=== PATIENT | male | born 1950 | race Caucasian/White ===

== ENCOUNTER 2017-03-24 19:11 | Inpatient (IN) ==
--- NOTE | 2017-03-24 20:04 | Emergency Department Note ---
Disposition Clinical Impression: Elevated troponin Acute exacerbation of congestive heart failure Qualifiers: Congestive heart failure type: unspecified congestive heart failure type Qualified Code(s): I50.9 - Heart failure, unspecified Dyspnea Qualifiers: Dyspnea type: orthopnea Qualified Code(s): R06.01 - Orthopnea Disposition: Admitted As Inpatient Condition: Fair Time of Disposition: 21:01 General Adult HPI - General Chief complaint: ED Recheck/Abnormal Lab/Rx Stated complaint: abnormal labs/headache Time Seen by Provider: 03/24/17 19:17 Source: EMS Nursing Notes Reviewed: Yes Vital Signs Reviewed: Yes - History of Present Illness HPI Narrative: Mr. Chery, 66-year-old male, presents from the [place] for continued evaluation and management. [facility] day [facility] of progressive dyspnea. Substantially worse while lying supine. Associated with dry cough and notable increase in swelling of bilateral lower extremities. Patient has a history of congestive heart failure. PMH: Diabetes with diabetic neuropathy, just part failure, MRSA carrier, open angle glaucoma bilaterally, diabetic retinopathy bilaterally. CAD. Hypertension. History of medical noncompliance per [facility] documentation. Pain Scale: 2 - Related Data Home Medications Medication Instructions Recorded Confirmed Amlodipine Besylate 10 mg PO DAILY 03/24/17 03/24/17 Aspirin Enteric Coated [Aspirin EC] 81 mg PO DAILY 03/24/17 03/24/17 Dorzolamide/Timolol [Cosopt] 1 drop BOTH EYES BID 03/24/17 03/24/17 Furosemide [Lasix] 60 mg PO DAILY 03/24/17 03/24/17 Insulin Glargine,Hum.rec.anlog 36 unit SQ QAM 03/24/17 03/24/17 [Lantus Solostar] Ketorolac OPTH Soln [Acular] 1 drop RIGHT EYE QID 03/24/17 03/24/17 Metoprolol [Lopressor] 25 mg PO BID 03/24/17 03/24/17 Potassium Chloride [Klor-Con 10] 10 meq PO DAILY 03/24/17 03/24/17 Allergies Allergy/AdvReac Type Severity Reaction Status Date / Time fluvastatin Allergy Difficulty Verified 03/24/17 19:24 Breathing gemfibrozil Allergy Difficulty Verified 03/24/17 19:24 Breathing lovastatin Allergy Difficulty Verified 03/24/17 19:24 Breathing Penicillins [PCN] Allergy Difficulty Verified 03/24/17 19:23 Breathing simvastatin Allergy Difficulty Verified 03/24/17 19:24 Breathing Past Medical History - Past Medical History Medical history: Reports: CHF, diabetes, kidney stones Psychiatric history: Reports: no psych history - Social History Smoking Status: Never smoker Smokeless Tobacco Status: No Alcohol use: Reports: none Drug use: Reports: none Physical Exam - General General appearance: alert, in no apparent distress Course Course Narrative: Lab work from [place] drawn to March at 16:50 Serum hematology: WBC 12.3, hemoglobin 10.7, hematocrit 32.8, platelet 321.0 Serum chemistry: Sodium 144, potassium 4.1 chloride 110, CO2 24, glucose 152, and 49, creatinine 3.33, ALP 61, AST 44, ALT 27, creatinine kinase 3172, troponin 0.071 , BNP 12603 [facility]: 40 mg Lasix IV 324 mg aspirin by mouth chew. Home medications per [place] documentation: Amlodipine 10 mg by mouth daily, aspirin 81 mg by mouth daily, furosemide 40 mg 1.5 tablets by mouth when necessary hypertension or pedal edema, insulin glargine 36 units subcutaneous every morning, metoprolol tartrate 25 mg by mouth twice a day, potassium chloride 10 mEq by mouth daily In reviewing patient's labs drawn today as well as distorted from the [facility], he has a history of chronic kidney disease were in his creatinine [facility] the [facility] 3.33 is consistent with his sister work creatinine throughout the year. Clinically, patient appears to be in an exacerbation of his congestive heart failure. He has orthopnea, increased bilateral pedal edema which is 3+ pitting. His troponin of 0.071 likely secondary to his chronic kidney disease. We will continue to monitor and trend. Patient's congestive heart failure is of undocumented type with unknown ejection fraction per both [facility] paperwork as well as no documented studies in this health system. Chest x-ray read by radiology as atelectasis versus pneumonia. Clinically, I suspect atelectasis given his orthopnea, progressive dyspnea, and other clinical signs of congestive heart failure. Patient is afebrile with a nonproductive cough. Discussed the patient with the admitting hospitalist, Dr. Araiza, who agrees to accept for continued evaluation and management of acute exacerbation of congestive heart failure Chest X-Ray 03/24/17 19:36 IMPRESSION: Focal increased density in the left retrocardiac region suggesting atelectasis or pneumonia. D/ / Adryan Wheeler / Adryan Wheeler Interpreting Provider: Adryan Wheeler Vital Signs Temperature 98.4 F 03/24/17 19:18 Pulse Rate 64 03/24/17 19:18 Respiratory Rate 18 03/24/17 19:18 Blood Pressure 190/87 03/24/17 19:18 O2 Sat by Pulse Oximetry 100 03/24/17 19:18 Temperature 98.4 F 03/24/17 19:18 Pulse Rate 65 03/24/17 22:03 Respiratory Rate 16 03/24/17 22:03 Blood Pressure 176/81 03/24/17 22:03 O2 Sat by Pulse Oximetry 96 03/24/17 22:03 Oxygen Delivery Oxygen Delivery Nasal Cannula Medical Decision Making - Medical Records Medical records reviewed: Yes I reviewed the patient's medical records. - Lab Data Result diagrams: 03/24/17 20:24 03/24/17 20:24 Lab Results 03/24/17 03/24/17 03/24/17 Range/Units 20:24 20:24 20:24 WBC 12.3 H (4.3-11.1) K/mcL RBC 3.65 L (4.19-5.50) M/mcL Hgb 10.4 L (12.9-16.9) g/dL Hct 32.1 L (37.5-50.1) % MCV 87.9 (83.0-100.0) fL MCH 28.5 (28.0-33.3) pg MCHC 32.4 (31.6-35.5) g/dL RDW 13.2 (11.5-14.5) % Plt Count 305 (140-400) K/mcL MPV 10.5 (9.4-12.4) fL Immature Gran % 0.3 (0-4) % Seg Neutrophils % 80.4 % Lymphocytes % 6.0 % Monocytes % 10.3 % Eosinophils % 2.4 % Basophils % 0.6 % Neutrophils # 9.9 H (1.6-8.9) K/mcL Lymphocytes # 0.7 (0.6-4.6) K/mcL Monocytes # 1.3 (0.0-1.3) K/mcL Eosinophils # 0.3 (0.0-0.6) K/mcL Basophils # 0.1 (0.0-0.2) K/mcL PT 13.2 H (9.4-12.1) Seconds INR 1.2 APTT 33.8 (26.0-36.0) Seconds Sodium (136-145) mEq/L Potassium (3.5-4.5) mEq/L Chloride (98-109) mEq/L Carbon Dioxide (19-29) mEq/L BUN (8-26) mg/dL Creatinine (0.72-1.25) mg/dL Est GFR ( Amer) (> 60) Est GFR (Non-Af Amer) (> 60) BUN/Creatinine Ratio (6-26) Glucose (70-99) mg/dL Calculated Osmolality (280-300) Calcium (8.6-10.8) mg/dL Troponin I (0-0.03) ng/mL B-Natriuretic Peptide 1173 H (0-100) pg/mL 03/24/17 03/24/17 Range/Units 20:24 20:24 WBC (4.3-11.1) K/mcL RBC (4.19-5.50) M/mcL Hgb (12.9-16.9) g/dL Hct (37.5-50.1) % MCV (83.0-100.0) fL MCH (28.0-33.3) pg MCHC (31.6-35.5) g/dL RDW (11.5-14.5) % Plt Count (140-400) K/mcL MPV (9.4-12.4) fL Immature Gran % (0-4) % Seg Neutrophils % % Lymphocytes % % Monocytes % % Eosinophils % % Basophils % % Neutrophils # (1.6-8.9) K/mcL Lymphocytes # (0.6-4.6) K/mcL Monocytes # (0.0-1.3) K/mcL Eosinophils # (0.0-0.6) K/mcL Basophils # (0.0-0.2) K/mcL PT (9.4-12.1) Seconds INR APTT (26.0-36.0) Seconds Sodium 143 (136-145) mEq/L Potassium 4.2 (3.5-4.5) mEq/L Chloride 110 H (98-109) mEq/L Carbon Dioxide 24 (19-29) mEq/L BUN 48 H (8-26) mg/dL Creatinine 3.28 H (0.72-1.25) mg/dL Est GFR ( Amer) 23 L (> 60) Est GFR (Non-Af Amer) 19 L (> 60) BUN/Creatinine Ratio 15 (6-26) Glucose 147 H (70-99) mg/dL Calculated Osmolality 311 H (280-300) Calcium 9.2 (8.6-10.8) mg/dL Troponin I 0.05 H* (0-0.03) ng/mL B-Natriuretic Peptide (0-100) pg/mL - EKG Data EKG #1 EKG attestation: Yes I reviewed and interpreted this EKG. EKG results narrative: EKG dated to March 2017 at 19:17 interpreted as first-degree AV block; sinus rhythm with rate of 64, prolonged VT interval of approximately 0.[address]-T changes. No previous EKG for comparison. Attestation Statement - Attestation Attestation: I, Gerard Ocampo, examined this patient and my medical decision-making was reviewed with the CONTRACT ADMINISTRATION COORDINATOR/PA/Advanced Practice Nurse/Resident Physician. I agree with the documented findings, disposition and treatment plan as described except to the extent set forth below. 66-year-old male presents emergency Department with concerns of increasing shortness of breath with exertion. Patient states he became short of breath at rest and was seen at the [place] who diagnosed him with congestive heart failure and gave him Lasix, sending him to the emergency department for further evaluation. Patient is now resting comfortably however he does have +2 pitting edema bilateral lower extremities. Patient has significantly elevated BNP. He will be admitted to the hospital for further care and evaluation. Denies changes of his medications or changes in his diet.
[2017-03-24 20:32] LABS: Basophils # 0.1 K/mcL (0.0-0.2); Basophils % 0.6 %; Eosinophils # 0.3 K/mcL (0.0-0.6); Eosinophils % 2.4 %; Hematocrit 32.1 % (37.5-50.1); Hemoglobin 10.4 g/dL (12.9-16.9); Immature Granulocytes % 0.3 % (0-4); Lymphocytes # 0.7 K/mcL (0.6-4.6); Mean Corpuscular HGB Conc 32.4 g/dL (31.6-35.5); Mean Corpuscular Hemoglobin 28.5 pg (28.0-33.3); Mean Corpuscular Volume 87.9 fL (83.0-100.0); Mean Platelet Volume 10.5 fL (9.4-12.4); Monocytes # 1.3 K/mcL (0.0-1.3); Monocytes % 10.3 %; Neutrophils # 9.9 K/mcL (1.6-8.9); Platelet Count 305 K/mcL (140-400); Red Blood Count 3.65 M/mcL (4.19-5.50); Red Cell Distribution Width 13.2 % (11.5-14.5); Segmented Neutrophils % 80.4 %
[2017-03-24 20:39] LABS: INR 1.2; Prothrombin Time 13.2 Seconds (9.4-12.1)
[2017-03-24 20:42] LABS: Activated Partial Thrombo Time 33.8 Seconds (26.0-36.0)
[2017-03-24 20:45] LABS: Potassium 4.2 mEq/L (3.5-4.5)
[2017-03-24 20:46] LABS: Calcium 9.2 mg/dL (8.6-10.8)
[2017-03-25] MEDS ORDERED: Naloxone 0.4 MG/ML INJ IVP PRN (03:21)
--- NOTE | 2017-03-25 03:21 | Internal Med History&Physical ---
<Eduardo Tomlinson - Last Filed: 03/25/17 04:36> Date of Encounter: 03/25/17 Time of Encounter: 03:19 Assessment and Plan (1) Acute exacerbation of congestive heart failure Current visit: Yes Status: Acute [facility] 2+ pitting edema on exam bilateral LE CXR shows possible atelectasis in left lower lobe - Exam demonstrated diffuse rales. No rhonchi Strict I&Os Low sodium, diabetic diet, 1500ml fluid restriction O2 NC 2L HOB elevated Out of bed with assistance Increased Lasix 40mg IV BID Supportive care for cough, pain ECHO ordered in the am Continued ASA, BB. Need to optimize medical therapy pending kidney function and BP control Qualifiers: Congestive heart failure type: unspecified congestive heart failure type Qualified Code(s): I50.9 - Heart failure, unspecified (2) HTN (hypertension) Current visit: Yes Status: Chronic Elevated - BP 190/87 on arrival Restarted Amlodipine and Lopressor CrCl = 34, will consider low dose Zestril if BP continues into the day Retroperitoneal US to consider secondary cause Qualifiers: Hypertension type: unspecified Qualified Code(s): I10 - Essential (primary ) hypertension (3) CKD (chronic kidney disease) stage 4, GFR 15-29 ml/min Current visit: Yes Status: Chronic Creatinine: 09/10/2015 - 2.93 09/04/2016 - 3.36 10/05/2016 - 3.53 03/24/17 - 3.33 03/25/17 - 3.28 Chronically elevated. Ordering retroperitoneal US to rule out any obstruction Avoid nephrotoxic agents Repeat labs (4) Dyspnea Current visit: Yes Status: Acute See above Qualifiers: Dyspnea type: orthopnea Qualified Code(s): R06.01 - Orthopnea (5) Elevated troponin Current visit: Yes Status: Acute Trop 0.071 > 0.05. Trending. Likely d/t CHF and CKD. EKG reviewed and no ischemic changes noted. 1st Degree AV block. (6) T2DM (type 2 diabetes mellitus) Current visit: Yes Status: Chronic Takes Glargine 36 unites qHS at home. Checks daily in the morning and runs from 90-120. Started on Levemir 36 units qHS. Qualifiers: Diabetes mellitus complication status: with skin complications Diabetes mellitus complication detail: with other skin complication Diabetes mellitus superintendent marine oil terminal insulin use: with halfway use Qualified Code(s): E11.628 - Type 2 diabetes mellitus with other skin complications; Z79.4 - nursing home (current) use of insulin; Z79.4 - termite technician (current) use of insulin; Z79.4 - nursing home ( current) use of insulin; Z79.4 - nursing home (current) use of insulin Internal Medicine - H&P: HPI Chief complaint: shortness of breath Admitted From: Hospital to Hospital Transfer Plans for Post Hospital Care: Home History of present illness: Mr. Chery is a very pleasant 66 year old male with a past medical history of CHF , T2DM, HTN, Hyperlipidemia, and CKD who presents to the [facility] after trasnferring from the [place] [facility] with a chief complaint of shortness of breath. He reports that about 4-5 days ago he was walking from his "sleep cabin " near his son's house and started experiencing worsening shortness of breath that worsens with exertion. The SOB is associated with non-productive cough. Symptoms are relieved at rest and reports orthopnea and worsening lower extremity edema. Denies any PND, chest pain, palpitations. He is taking all his medications as directed. Patient was given 40mg Lasix, ASA and nitro at the [place] before transfer. On arrival to the [facility] ED, vitals signs show BP 190/87 and O2 on 2L 100%. Trop 0.05 today and yesterday was 0.071. BNP 1173, Cr 3.28 and WBC 12.3. On evaluation, he reports no tobacco or EtOH abuse. No pertinent family medical history. He was previously hospitalized in 2015 for similar complaints. No record of ECHO found. Mr. Chery will be admitted to for further workup and management. Past Med Surg Social Fam HX - Past Medical History Medical history: CHF, diabetes, kidney stones Psychiatric history: no psych history - Social History Smoking Status: Never smoker Smokeless Tobacco Status: No Alcohol use: none Drug use: none - Family History Mother Hx Family Cancer: Yes (throat [id number]) Internal Medicine - H&P: Meds Amlodipine Besylate 10 mg PO DAILY 03/24/17 [History] Aspirin Enteric Coated [Aspirin EC] 81 mg PO DAILY 03/24/17 [History] Dorzolamide/Timolol [Cosopt] 1 drop BOTH EYES BID 03/24/17 [History] Furosemide [Lasix] 60 mg PO DAILY 03/24/17 [History] Insulin Glargine,Hum.rec.anlog [Lantus Solostar] 36 unit SQ QAM 03/24/17 [ History] Ketorolac OPTH Soln [Acular] 1 drop RIGHT EYE QID 03/24/17 [History] Metoprolol [Lopressor] 25 mg PO BID 03/24/17 [History] Potassium Chloride [Klor-Con 10] 10 meq PO DAILY 03/24/17 [History] 3 Allergy/AdvReac Type Severity Reaction Status Date / Time fluvastatin Allergy Difficulty Verified 03/24/17 19:24 Breathing gemfibrozil Allergy Difficulty Verified 03/24/17 19:24 Breathing lovastatin Allergy Difficulty Verified 03/24/17 19:24 Breathing Penicillins [PCN] Allergy Difficulty Verified 03/24/17 19:23 Breathing simvastatin Allergy Difficulty Verified 03/24/17 19:24 Breathing All Systems PM: A 10-system review of systems was performed and is negative for pertinent findings except as documented above in the HPI. - Constitutional Constitutional: fatigue - EENT Eyes: no change in vision - Cardiovascular Cardiovascular ROS IM: dyspnea on exertion, orthopnea, no chest pain, no paroxysmal nocturnal dyspnea - Respiratory Respiratory: cough - Gastrointestinal Gastrointestinal: no abdominal pain - Genitourinary Genitourinary ROS male: no dysuria - Musculoskeletal Musculoskeletal ROS IM: no muscle cramps - Integumentary Integumentary IM: no new lesions - Neurological Neurological ROS: no headache(s) - Constitutional Vitals: Temp Pulse Resp BP Pulse Ox 99.4 F 67 18 191/92 95 03/24/17 23:41 03/24/17 23:41 03/24/17 23:41 03/24/17 23:41 03/24/17 23:41 General appearance: Present: A&O X 3, no acute distress - Head Head exam: Present: atraumatic, normocephalic - Eye Eye exam: Present: EOMI, conjuntiva pink, sclera anicteric - ENT ENT exam: Present: mucous membranes moist - Neck Neck exam general surgery: Present: normal inspection, trachea midline - Respiratory Respiratory exam: Present: rales (diffuse R>L), wheezes. Absent: accessory muscle use, chest wall tenderness, rhonchi - Cardiovascular Cardiovascular exam: Present: RRR, +S1, +S2 - GI/Abdominal GI/Abdominal exam: Present: normal bowel sounds, soft. Absent: tenderness - Rectal Rectal exam: Present: deferred - Extremities Exam Extremities exam: Present: pedal edema (2+ bilateral, 5 complete right toe amputations ). Absent: calf tenderness - Neurological Exam Neurological exam: Present: oriented X3, no focal deficits - Psychiatric Psychiatric exam: Present: normal affect, normal mood - Skin Skin exam: Present: erythema (bialteral lower extremity) Internal Med - H&P Results - Labs CBC & Chem 7: 03/25/17 03:07 03/25/17 03:07 <Heladio Nunn - Last Filed: 03/25/17 06:54> Date of Encounter: 03/25/17 Internal Medicine - H&P: HPI History of present illness: Mr. Chery is a 66 year old male All Systems PM: A 10-system review of systems was performed and is negative for pertinent findings except as documented above in the HPI. - Constitutional Vitals: Temp Pulse Resp BP Pulse Ox 100.2 F H 72 18 177/68 96 03/25/17 05:54 03/25/17 05:54 03/25/17 05:54 03/25/17 05:54 03/25/17 05:54 Internal Med - H&P Results - Labs CBC & Chem 7: 03/25/17 03:07 03/25/17 03:07 Labs: Short CBC 03/25/17 Range/Units 03:07 WBC 10.9 (4.3-11.1) K/mcL Hgb 10.4 L (12.9-16.9) g/dL Hct 32.7 L (37.5-50.1) % Plt Count 307 (140-400) K/mcL BMP 03/25/17 03:07 Sodium 142 Potassium 4.5 Chloride 109 Carbon Dioxide 23 BUN 49 H Creatinine 3.45 H Glucose 227 H Calcium 9.1 Cardiac Enzymes 03/25/17 Range/Units 03:07 Troponin I 0.06 H* (0-0.03) ng/mL - Attending Attestation I conducted a face to face diagnostic evaluation of this patient and my medical decision-making was reviewed with the Resident Physician, Dr. Eduardo Tomlinson. I agree with the documented findings, disposition and treatment plan as described except to the extent set forth below: On examination patient has bilateral lower extremity pitting edema. We will treat him with IV Lasix. Obtain kidney ultrasound.
[2017-03-25] MEDS ORDERED: Acetaminophen 325 MG TABLET PO PRN (03:36)
[2017-03-25 03:59] LABS: Hematocrit 32.7 % (37.5-50.1); Hemoglobin 10.4 g/dL (12.9-16.9); Mean Corpuscular HGB Conc 31.8 g/dL (31.6-35.5); Mean Corpuscular Hemoglobin 28.4 pg (28.0-33.3); Mean Corpuscular Volume 89.3 fL (83.0-100.0); Mean Platelet Volume 10.9 fL (9.4-12.4); Platelet Count 307 K/mcL (140-400); Red Blood Count 3.66 M/mcL (4.19-5.50); Red Cell Distribution Width 13.2 % (11.5-14.5)
[2017-03-25 04:09] LABS: Calcium 9.1 mg/dL (8.6-10.8); Potassium 4.5 mEq/L (3.5-4.5)
[2017-03-25] MEDS: *HR* Heparin 5,000 UNIT/ML VIAL SQ SCH ×2 (08:10→17:22)
[2017-03-25] MEDS: Furosemide 40 MG/4 ML VIAL IVP SCH ×2 (08:10→21:17)
[2017-03-25] MEDS: Aspirin Enteric Coated 81 MG Tablet PO SCH (08:11)
[2017-03-25] MEDS: amLODIPine 5 MG TABLET PO SCH (08:11)
[2017-03-25] MEDS: Dorzolamide/Timolol OPTH 10 ML BOTTLE BOTH EYES SCH ×2 (08:52→21:17)
[2017-03-25] MEDS: levoFLOXacin 750 MG TABLET PO SCH (08:53)
[2017-03-25 13:15] LABS: Bilirubin,Urine Negative (Negative); Blood,Urine Moderate (Negative); Clarity,Urine Clear (Clear); Color,Urine Yellow (Yellow); Glucose,Urine (UA) 100 mg/dL (Normal); Ketones,Urine Negative (Negative); Leukocyte Esterase,Urine Negative (Negative); Nitrite,Urine Negative (Negative); Protein,Urine >=300 mg/dL (Neg-Trace); Specific Gravity,Urine 1.017 (1.010-1.025); Urobilinogen,Urine Normal (Normal)
[2017-03-25 13:18] LABS: Bacteria,Urine None Seen per hpf (None-Few); Squamous Epithelial Cell,Urine Many per lpf (None-Few); WBC,Urine 0-3 per hpf (0-3)
[2017-03-25 13:32] LABS: Hyaline Casts,Urine Few per lpf (None-Few)
--- NOTE | 2017-03-25 17:07 | Internal Med Progress Note ---
Date of Encounter: 03/25/17 Time of Encounter: 09:20 - Assessment and plan (1) Acute exacerbation of congestive heart failure Current Visit: Yes Status: Acute Assessment and plan: Patient reports 3-4 day history of shortness of breath. He normally does not wear oxygen at home. He reports a nonproductive cough and increase in bilateral lower extremity edema. His lungs are clear and diminished. Patient does appear to be in fluid overload. Echocardiogram was completed today, the results are not available to me at this time. BNP is elevated at 1173. Troponin is elevated 0.05 and 0.062. Chest x-ray reveals increased density in the left retrocardiac region suggesting atelectasis or pneumonia. Will continue to monitor this, he has no leukocytosis or fever. Continue IV Lasix. Continue telemetry. Continue daily weights, strict I and O, 1.5 L diet, low sodium diet. Monitor echocardiogram results. Chest X-Ray 03/24/17 19:36 IMPRESSION: Focal increased density in the left retrocardiac region suggesting atelectasis or pneumonia. D/ / Adryan Wheeler / Adryan Wheeler Interpreting Provider: Adryan Wheeler Qualifiers: Congestive heart failure type: unspecified congestive heart failure type Qualified Code(s): I50.9 - Heart failure, unspecified (2) Dyspnea Current Visit: Yes Status: Acute Assessment and plan: Patient reports 3-4 days of shortness of breath, cough, peripheral edema. Patient does not wear O2 at home normally. Plan as above. Qualifiers: Dyspnea type: orthopnea Qualified Code(s): R06.01 - Orthopnea (3) Elevated troponin Current Visit: Yes Status: Acute Assessment and plan: Patient with flat, adynamic, mildly elevated troponin, 0.5 0.62 in the setting of CK D and CHF exacerbation. Most likely related to demand ischemia. Continue to monitor. Patient does not complain of chest pain. (4) T2DM (type 2 diabetes mellitus) Current Visit: Yes Status: Chronic Assessment and plan: Patient has been hyperglycemic. We will continue to do moderate coverage sliding scale insulin, Accu-Cheks before meals at bedtime, diabetic diet. Patient did consume a large Thanksgiving dinner that appeared to have a roll, sweet potatoes, mashed potatoes. Monitor and cover as needed. Qualifiers: Diabetes mellitus complication status: with skin complications Diabetes mellitus complication detail: with other skin complication Diabetes mellitus care home insulin use: with manager terminal use Qualified Code(s): E11.628 - Type 2 diabetes mellitus with other skin complications; Z79.4 - predatory animal exterminator (current) use of insulin; Z79.4 - alf (current) use of insulin; Z79.4 - alf ( current) use of insulin; Z79.4 - predatory animal exterminator (current) use of insulin (5) HTN (hypertension) Current Visit: Yes Status: Chronic Assessment and plan: Well controlled. Continue to monitor vital signs and continue home medications. Qualifiers: Hypertension type: unspecified Qualified Code(s): I10 - Essential (primary ) hypertension (6) CKD (chronic kidney disease) stage 4, GFR 15-29 ml/min Current Visit: Yes Status: Chronic Assessment and plan: Serum creatinine 3.45 GFR is 18. Patient has no priors to compare, unaware of his baseline. Patient has proteinuria. Will consult nephrology for recommendations. Continue to avoid nephrotoxins IV fluids judiciously, if necessary. Patient is requiring IV Lasix for CHF. Retroperitoneal ultrasound has been ordered but is not complete. (7) DVT prophylaxis Current Visit: Yes Status: Acute Assessment and plan: Heparin subcutaneous daily - Time Spent With Patient less than 15 minutes - Subjective Interval history: Patient was seen and assessed at 9:20 AM. He is alert, awake, pleasant, engaging. He states that he is almost always adherent with his fluid restriction. He states that he is as compliant as he can be with his sodium restriction due to the fact he is living with family who cooks for him. I walked past his room this afternoon, it is Thanksgiving day. Patient was eating a very large plate of food that appeared to have sleep potatoes, mashed potatoes, turkey and a roll. Patient has elevated blood sugar today and is requiring insulin sliding scale. We will continue to monitor. He denies any headache, blurred vision, dizziness, she chest pain. - Constitutional Vitals: Temp Pulse Resp BP Pulse Ox 98.3 F 72 16 169/73 93 03/25/17 14:55 03/25/17 14:55 03/25/17 14:55 03/25/17 14:55 03/25/17 14:55 General appearance: Present: cooperative, A&O X 3, no acute distress, answers questions appropriately - Head Head exam: Present: atraumatic, normal inspection, normocephalic - Eye Eye exam: Present: normal appearance, conjuntiva pink, sclera anicteric - Neck Neck exam general surgery: Present: supple, trachea midline. Absent: lymphadenopathy - Respiratory Respiratory exam: Present: decreased breath sounds, CTAB. Absent: accessory muscle use, rales, respiratory distress, rhonchi, wheezes - Cardiovascular Cardiovascular exam: Present: RRR, +S1, +S2. Absent: diastolic murmur, gallop, rubs, systolic murmur - GI/Abdominal GI/Abdominal exam: Present: distended, normal bowel sounds, soft. Absent: hepatomegaly, tenderness - Extremities Exam Extremities exam: Present: normal capillary refill, pedal edema, warm, radial pulses palpable and symmetrical. Absent: calf tenderness, cyanotic, tenderness Additional comments: +2-3 nonpitting edema to bilateral lower extremities and feet. - Neurological Exam Neurological exam: Present: alert, oriented X3, no focal deficits. Absent: facial droop, speech deficit - Skin Skin exam: Present: dry, intact, normal color, warm. Absent: rash Internal Medicine: Result - Labs CBC & Chem 7: 03/25/17 03:07 03/25/17 03:07 Labs: Cardiac Enzymes 03/25/17 Range/Units 09:13 Troponin I 0.06 H* (0-0.03) ng/mL Urine 03/25/17 Range/Units 13:00 Urine Color Yellow (Yellow) Urine Clarity Clear (Clear) Urine pH 6.0 (5.0-8.0) pH Units Ur Specific [place] 1.017 (1.010-1.025) Urine Protein >=300 H (Neg-Trace) mg/dL Urine Glucose (UA) 100 H (Normal) mg/dL - ABG Interpretation ABG results: PT/INR, D-dimer PT 13.2 Seconds (9.4-12.1) H 03/24/17 20:24 Consult Discharge Plan - Plan [facility]errals: [facility] [Primary Care Provider[facility] -
[2017-03-25] MEDS ORDERED: *HR* Dextrose 50 % in Water (Syg) 50 ML SYRINGE IVP PRN (17:08)
[2017-03-25] MEDS ORDERED: Dextrose Gel 15 GM PO PRN ×2 (17:08)
[2017-03-25] MEDS ORDERED: D5% in Water 1,000 ML IVC PRN (17:08)
[2017-03-25] MEDS: Insulin LISPRO 300 UNITS/3 ML VIAL SQ SCH ×2 (17:21→21:25)
[2017-03-25 17:27] LABS: Hemoglobin A1C 9.2 %
[2017-03-25] MEDS: Insulin DETEMIR 100 UNIT/ML X5UNITS SQ SCH (21:17)
[2017-03-26] MEDS: *HR* Heparin 5,000 UNIT/ML VIAL SQ SCH ×2 (06:01→17:44)
[2017-03-26] MEDS: amLODIPine 5 MG TABLET PO SCH (07:47)
[2017-03-26] MEDS: levoFLOXacin 750 MG TABLET PO SCH (07:47)
[2017-03-26] MEDS: Aspirin Enteric Coated 81 MG Tablet PO SCH (07:47)
[2017-03-26] MEDS: Dorzolamide/Timolol OPTH 10 ML BOTTLE BOTH EYES SCH ×2 (07:48→20:44)
[2017-03-26] MEDS: Furosemide 40 MG/4 ML VIAL IVP SCH ×2 (07:48→20:44)
[2017-03-26] MEDS: Insulin LISPRO 300 UNITS/3 ML VIAL SQ SCH ×4 (09:52→20:46)
[2017-03-26 10:03] LABS: Calcium 9.1 mg/dL (8.6-10.8); Potassium 4.1 mEq/L (3.5-4.5)
--- NOTE | 2017-03-26 12:27 | Internal Med Progress Note ---
Date of Encounter: 03/26/17 Time of Encounter: 10:05 - Assessment and plan (1) Acute exacerbation of congestive heart failure Current Visit: Yes Status: Acute Assessment and plan: Patient reports 3-4 day history of shortness of breath. He normally does not wear oxygen at home. He reports a nonproductive cough and increase in bilateral lower extremity edema. His lungs are clear and diminished. Patient does appear to be in fluid overload. Echocardiogram was completed LVEF of 55-60%, mild concentric LV hypertrophy, indeterminate diastolic dysfunction, no significant valvular dysfunction. BNP is elevated at 1173. Troponin is elevated 0.05 and 0.062. Chest x-ray reveals increased density in the left retrocardiac region suggesting atelectasis or pneumonia. Will continue to monitor this, he has no leukocytosis or fever. Continue IV Lasix. Continue telemetry. Continue daily weights, strict I and O, 1.5 L diet, low sodium diet. Continue oxygen as needed to maintain sats greater than 92%. Chest X-Ray 03/24/17 19:36 IMPRESSION: Focal increased density in the left retrocardiac region suggesting atelectasis or pneumonia. D/ / Adryan Wheeler / Adryan Wheeler Interpreting Provider: Adryan Wheeler Echocardiogram 03/25/17 03:25 Impressions: LVEF 55-60%. Mild concentric left ventricular hypertrophy. Indeterminate diastolic function. Moderate pulmonary hypertension. No significant valvular dysfunction. Left Ventricular Wall Motion: Rest Echo Findings All wall segments showed normal motion. Qualifiers: Congestive heart failure type: unspecified congestive heart failure type Qualified Code(s): I50.9 - Heart failure, unspecified (2) Dyspnea Current Visit: Yes Status: Acute Assessment and plan: Patient reports 3-4 days of shortness of breath, cough, and increased peripheral edema prior to admission. Patient does not wear O2 at home normally. Patient was not wearing supplemental oxygen during assessment this morning, he said he took it off and lost it. He does not appear to be in distress. Plan as above. Qualifiers: Dyspnea type: orthopnea Qualified Code(s): R06.01 - Orthopnea (3) Elevated troponin Current Visit: Yes Status: Acute Assessment and plan: Patient with flat, adynamic, mildly elevated troponin, 0.5 0.62 in the setting of CKD and CHF exacerbation. Most likely related to demand ischemia. Continue to monitor. Patient does not complain of chest pain. (4) T2DM (type 2 diabetes mellitus) Current Visit: Yes Status: Chronic Assessment and plan: Patient has been hyperglycemic throughout visit. We will continue to do moderate coverage sliding scale insulin, Accu-Cheks before meals at bedtime, diabetic diet. Patient did consume 2 large Thanksgiving dinners yesterday. Monitor and cover as needed. 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 Continue to monitor vital signs and continue home medications. Qualifiers: Hypertension type: unspecified Qualified Code(s): I10 - Essential (primary ) hypertension (6) CKD (chronic kidney disease) stage 4, GFR 15-29 ml/min Current Visit: Yes Status: Chronic Assessment and plan: Serum creatinine 3.89 GFR is 16. Patient has no priors to compare, unaware of his baseline. Patient has proteinuria. Will consult nephrology for recommendations. Continue to avoid nephrotoxins IV fluids judiciously, if necessary. Patient is requiring IV Lasix for CHF. Retroperitoneal ultrasound has been ordered but is not complete. Nephrology consultation is pending, I appreciate her recommendations and consultation. (7) DVT prophylaxis Current Visit: Yes Status: Acute Assessment and plan: Heparin subcutaneous daily, encourage ambulation as patient can tolerate. - Time Spent With Patient less than 15 minutes - Subjective Interval history: Patient was seen and assessed at 1005 AM. He is alert, awake, pleasant, engaging. Patient admits to eating to Thanksgiving dinner plates yesterday, one from home that was not diet restricted. Patient states that today he feels tired and does not feel any better. He is agreeable to not going home today. Retroperitoneal ultrasound is still pending at this time, had entered a nephrology consult due to his renal function. Patient still reports shortness of breath, he denies cough. Peripheral edema is unchanged from previously. He denies headache, nausea, vomiting, diaphoresis, abdominal pain. - Constitutional Vitals: Temp Pulse Resp BP Pulse Ox 98.2 F 92 16 152/75 93 03/26/17 11:26 03/26/17 11:26 03/26/17 11:26 03/26/17 11:26 03/26/17 11:26 General appearance: Present: cooperative, A&O X 3, no acute distress, answers questions appropriately - Head Head exam: Present: atraumatic, normal inspection, normocephalic - Eye Eye exam: Present: normal appearance, conjuntiva pink, sclera anicteric - Neck Neck exam general surgery: Present: supple, trachea midline. Absent: lymphadenopathy, tenderness - Respiratory Respiratory exam: Present: decreased breath sounds, CTAB. Absent: accessory muscle use, chest wall tenderness, rales, respiratory distress, rhonchi, stridor , wheezes - Cardiovascular Cardiovascular exam: Present: RRR, +S1, +S2. Absent: bradycardia, diastolic murmur, gallop, rubs, systolic murmur, tachycardia - GI/Abdominal GI/Abdominal exam: Present: distended, normal bowel sounds, soft. Absent: hepatomegaly, tenderness - Extremities Exam Extremities exam: Present: pedal edema, warm, radial pulses palpable and symmetrical. Absent: calf tenderness, cyanotic, tenderness Additional comments: +3 pitting edema bilaterally to lower extremities. - Neurological Exam Neurological exam: Present: oriented X3, no focal deficits. Absent: facial droop, speech deficit - Skin Skin exam: Present: dry, intact, normal color, warm. Absent: rash Internal Medicine: Result - Labs CBC & Chem 7: 03/25/17 03:07 03/26/17 09:40 Labs: BMP 03/26/17 09:40 Sodium 141 Potassium 4.1 Chloride 108 Carbon Dioxide 24 BUN 60 H Creatinine 3.89 H Glucose 147 H Calcium 9.1 Urine 03/25/17 Range/Units 13:00 Urine Color Yellow (Yellow) Urine Clarity Clear (Clear) Urine pH 6.0 (5.0-8.0) pH Units Ur Specific Babb 1.017 (1.010-1.025) Urine Protein >=300 H (Neg-Trace) mg/dL Urine Glucose (UA) 100 H (Normal) mg/dL - ABG Interpretation ABG results: PT/INR, D-dimer PT 13.2 Seconds (9.4-12.1) H 03/24/17 20:24 Consult Discharge Plan - Plan [facility]errals: [facility] Care Provider[facility] -
[2017-03-26] MEDS: Albumin 25% 25gram/100mL 25 GM/100 ML IV.SOLN IVPB SCH (17:35)
[2017-03-26] MEDS: Insulin DETEMIR 100 UNIT/ML X5UNITS SQ SCH (20:58)
[2017-03-27] MEDS: *HR* Heparin 5,000 UNIT/ML VIAL SQ SCH ×2 (05:46→19:40)
[2017-03-27] MEDS: Albumin 25% 25gram/100mL 25 GM/100 ML IV.SOLN IVPB SCH ×2 (06:16→19:36)
[2017-03-27 06:32] LABS: Protein/Creatinine Ratio,Urine 3.29 mg/mg (0-0.20)
[2017-03-27] MEDS: Insulin LISPRO 300 UNITS/3 ML VIAL SQ SCH ×4 (09:33→21:17)
[2017-03-27] MEDS: Aspirin Enteric Coated 81 MG Tablet PO SCH (09:39)
[2017-03-27] MEDS: amLODIPine 5 MG TABLET PO SCH (09:39)
[2017-03-27] MEDS: Dorzolamide/Timolol OPTH 10 ML BOTTLE BOTH EYES SCH ×2 (09:39→21:17)
[2017-03-27] MEDS: Furosemide 40 MG/4 ML VIAL IVP SCH ×2 (09:39→21:16)
[2017-03-27] MEDS: levoFLOXacin 750 MG TABLET PO SCH (09:39)
[2017-03-27 12:52] LABS: Potassium 4.2 mEq/L (3.5-4.5)
--- NOTE | 2017-03-27 14:39 | Internal Med Progress Note ---
Date of Encounter: 03/27/17 Time of Encounter: 14:00 - Assessment and plan (1) Acute exacerbation of congestive heart failure Current Visit: Yes Status: Acute Assessment and plan: Patient reports 3-4 day history of shortness of breath. He normally does not wear oxygen at home. He reports a nonproductive cough and increase in bilateral lower extremity edema. His lungs are clear and diminished. Patient does appear to be in fluid overload. BLE edema, +2-3 pitting today, improved from yesterday. Echocardiogram was completed LVEF of 55-60%, mild concentric LV hypertrophy, indeterminate diastolic dysfunction, no significant valvular dysfunction. BNP is elevated at 1173. Troponin is elevated 0.05 and 0.062. Chest x-ray reveals increased density in the left retrocardiac region suggesting atelectasis or pneumonia. Will continue to monitor this, he has no leukocytosis or fever. Continue IV Lasix. Continue telemetry. Continue daily weights, strict I and O, 1.5 L diet, low sodium diet. Continue oxygen as needed to maintain sats greater than 92%. Chest X-Ray 03/24/17 19:36 IMPRESSION: Focal increased density in the left retrocardiac region suggesting atelectasis or pneumonia. D/ / Adryan Wheeler / Adryan Wheeler Interpreting Provider: Adryan Wheeler Echocardiogram 03/25/17 03:25 Impressions: LVEF 55-60%. Mild concentric left ventricular hypertrophy. Indeterminate diastolic function. Moderate pulmonary hypertension. No significant valvular dysfunction. Left Ventricular Wall Motion: Rest Echo Findings All wall segments showed normal motion. Qualifiers: Congestive heart failure type: unspecified congestive heart failure type Qualified Code(s): I50.9 - Heart failure, unspecified (2) Dyspnea Current Visit: Yes Status: Acute Assessment and plan: Patient reports 3-4 days of shortness of breath, cough, and increased peripheral edema prior to admission. Patient does not wear O2 at home normally. He is requiring supplemental 02 to maintain sats. Patient was not wearing supplemental oxygen during assessment this morning, he said he took it off and lost it. He does not appear to be in distress. No wheezing, ronchi, stridor. Plan as above. Qualifiers: Dyspnea type: orthopnea Qualified Code(s): R06.01 - Orthopnea (3) Elevated troponin Current Visit: Yes Status: Acute Assessment and plan: Patient with flat, adynamic, mildly elevated troponin, 0.5 0.62 in the setting of CKD and CHF exacerbation. Most likely related to demand ischemia. Continue to monitor. (4) T2DM (type 2 diabetes mellitus) Current Visit: Yes Status: Chronic Assessment and plan: Patient has been mildly hyperglycemic throughout visit. We will continue to do moderate coverage sliding scale insulin, Accu-Cheks before meals at bedtime, diabetic diet. Patient did consume 2 large Thanksgiving dinners yesterday. Monitor and cover as needed. (5) HTN (hypertension) Current Visit: Yes Status: Chronic Assessment and plan: Pt slightly hypertensive above guidelines. Will increase Norvasc. Continue to monitor vital signs and continue home medications. Hydralazine 10mg IVP q6h prn for systolic BP > 180mmhg Qualifiers: Hypertension type: unspecified Qualified Code(s): I10 - Essential (primary ) hypertension (6) CKD (chronic kidney disease) stage 4, GFR 15-29 ml/min Current Visit: Yes Status: Chronic Assessment and plan: Serum creatinine 4.19 GFR is 14. Patient has no priors to compare, unaware of his baseline. Patient has proteinuria. Continue to avoid nephrotoxins IV fluids judiciously, if necessary. Patient is requiring IV Lasix for CHF. Retroperitoneal ultrasound completed. Kidneys with normal cortical echogenicity without evidence of hydronephrosis. Appears to be a 5 mm nonobstructing renal calculi in the right kidney. Nephrology consultation is pending, I appreciate her recommendations and consultation. (7) DVT prophylaxis Current Visit: Yes Status: Acute Assessment and plan: Heparin subcutaneous daily, encourage ambulation as patient can tolerate. - Time Spent With Patient less than 15 minutes - Subjective Interval history: Patient was seen and assessed at 1400 AM. He is asleep, arouses easily. Patient states that today he feels tired and feels some better. He is agreeable to not going home today. Patient still reports shortness of breath, he denies cough or wheezing.. Peripheral edema is slightly improved, edema is now pitting to BLE. He denies headache, nausea, vomiting, diaphoresis, abdominal pain. - Constitutional Vitals: Temp Pulse Resp BP Pulse Ox 98.8 F 67 18 170/78 93 03/27/17 11:21 03/27/17 11:21 03/27/17 11:21 03/27/17 11:21 03/27/17 11:21 General appearance: Present: cooperative, A&O X 3, pleasant, no acute distress, answers questions appropriately - Head Head exam: Present: atraumatic, normal inspection, normocephalic - Eye Eye exam: Present: normal appearance, conjuntiva pink, sclera anicteric - Neck Neck exam general surgery: Present: supple, trachea midline. Absent: lymphadenopathy, tenderness - Respiratory Respiratory exam: Present: CTAB. Absent: accessory muscle use, rales, rhonchi, wheezes - Cardiovascular Cardiovascular exam: Present: RRR, +S1, +S2. Absent: diastolic murmur, gallop, rubs, systolic murmur - GI/Abdominal GI/Abdominal exam: Present: normal bowel sounds, soft, no peritoneal signs. Absent: distended, tenderness - Extremities Exam Extremities exam: Present: pedal edema, warm, radial pulses palpable and symmetrical. Absent: calf tenderness, cyanotic, normal capillary refill, normal inspection, tenderness - Neurological Exam Neurological exam: Present: alert, oriented X3, no focal deficits. Absent: facial droop, speech deficit - Skin Skin exam: Present: dry, intact, normal color, warm. Absent: rash Internal Medicine: Result - Labs CBC & Chem 7: 03/25/17 03:07 03/27/17 12:04 Labs: BMP 03/27/17 12:04 Sodium 143 Potassium 4.2 Chloride 109 Carbon Dioxide 21 BUN 63 H Creatinine 4.19 H Glucose 206 H Calcium 9.0 - ABG Interpretation ABG results: PT/INR, D-dimer PT 13.2 Seconds (9.4-12.1) H 03/24/17 20:24 Consult Discharge Plan - Plan [facility]errals: [facility] [Primary Care Provider[facility] -
--- NOTE | 2017-03-27 17:17 | Nephrology Progress Note ---
Date of Encounter: 03/27/17 Time of Encounter: 12:00 - Assessment and Plan (1) Acute exacerbation of congestive heart failure Status: Acute UOP not impressive yet with albumin addedd yesterday evening, will monitor today Strict I/O advised Fluid restriction advised Qualifiers: Congestive heart failure type: unspecified congestive heart failure type Qualified Code(s): I50.9 - Heart failure, unspecified (2) CKD (chronic kidney disease) stage 4, GFR 15-29 ml/min Status: Chronic Sr slightly worse at 4.19, GFR 14, likely diuretics, will monitor for now Urine shows 3.3g proteinuria. Suspect DM a big cause of his CKD SPEP and UPEP pending PT elevated, vitamin d level pending Subjective Interval history: pt seen and examined with no new complaints. UOP documented at 850cc in the past 24hrs Objective - Vital Signs Vital signs: Vital Signs Temp Pulse Resp BP Pulse Ox 03/27/17 15:52 98.1 F 71 16 153/75 96 03/27/17 11:21 98.8 F 67 18 170/78 93 03/27/17 09:30 93 03/27/17 07:46 98.5 F 74 15 168/70 93 03/27/17 03:20 98.2 F 72 12 169/77 93 03/26/17 22:34 98.2 F 68 16 159/72 95 03/26/17 18:54 98.1 F 72 16 150/73 92 Intake and Output 03/27/17 03/27/17 03/27/17 07:59 15:59 23:59 Intake Total 820 / 820 Balance 820 / 820 Intake: IV Fluids 100 / 100 Flexbumin 25 gm In 100 ml @ 60 100 / 100 mls/hr IVPB Q12HR [facility] Rx#: [id number] Oral 720 / 720 Other: Meal Lunch Percent of Meal Consumed 100% Weight 108.59 kg Blood Glucose* 86 114 Patient Weight 03/27/17 23:59 Weight 108.59 kg - General Appearance General appearance: Present: well-developed, well-nourished EENT: Present: ATNC, mucous membranes moist Neck: Present: no JVD, supple Respiratory: Present: clear Cardiology: Present: edema (+2-3LE bilat) Gastrointestinal: Present: no tenderness, no guarding, obese Integumentary: Present: warm and dry Neurologic: Present: no focal deficit Musculoskeletal: Present: no deformities Psychiatric: Present: mood/affect appropriate - Lab 04/01/17 07:01 04/01/17 07:01 Most recent lab results Calcium 9.0 mg/dL (8.6-10.8) 03/27/17 12:04 Urine Creatinine 77 mg/dL 03/27/17 05:40 Urine Total Protein 253 mg/dL (1-14) H 03/27/17 05:40 Consult Discharge Plan - Plan Referrals: [facility] [Provider Group] - 04/05/17 9:00 am ([phone]) [facility] - (Please call to schedule follow up as soon as possible. Please inform your PCP of new onset Afib)
[2017-03-27] MEDS: Insulin DETEMIR 100 UNIT/ML X5UNITS SQ SCH (21:17)
[2017-03-28] MEDS: Albumin 25% 25gram/100mL 25 GM/100 ML IV.SOLN IVPB SCH ×2 (05:36→17:39)
[2017-03-28] MEDS: *HR* Heparin 5,000 UNIT/ML VIAL SQ SCH ×2 (05:39→17:39)
[2017-03-28] MEDS: Insulin LISPRO 300 UNITS/3 ML VIAL SQ SCH ×4 (08:24→21:20)
[2017-03-28] MEDS: levoFLOXacin 750 MG TABLET PO SCH (08:34)
[2017-03-28] MEDS: Furosemide 40 MG/4 ML VIAL IVP SCH ×2 (08:34→21:19)
[2017-03-28] MEDS: Aspirin Enteric Coated 81 MG Tablet PO SCH (08:34)
[2017-03-28] MEDS: amLODIPine 5 MG TABLET PO SCH (08:34)
[2017-03-28] MEDS: Dorzolamide/Timolol OPTH 10 ML BOTTLE BOTH EYES SCH ×2 (08:34→21:19)
[2017-03-28 12:43] LABS: Calcium 8.9 mg/dL (8.6-10.8); Potassium 3.9 mEq/L (3.5-4.5)
--- NOTE | 2017-03-28 13:48 | Nephrology Consult Note ---
Date of Encounter: 03/28/17 Time of Encounter: 16:00 Assessment and Plan (1) Acute exacerbation of congestive heart failure Current Visit: Yes Status: Acute Will continue diuresis with lasix iv and add albumin for the next 3 days Strict I/Os advised Fluid restriction advised Qualifiers: Congestive heart failure type: unspecified congestive heart failure type Qualified Code(s): I50.9 - Heart failure, unspecified (2) CKD (chronic kidney disease) stage 4, GFR 15-29 ml/min Current Visit: Yes Status: Chronic Will check urine for proteinuria Will sned SPEP and UPEP Will check PTH and vitamin d levels Us of kidney noted and unremarkable Discussed at length poor renal fxn and the need for regular nephrology followup in the future, pt wants to followup here in [place] upon dischrage. History of Present Illness - Reason for Consult Consult date: 03/26/17 Acute Kidney Injury, Chronic Kidney Disease Requesting physician: Denise Abdul - History of Present Illness 66 y o male with PMH of DM, [facility] and was diagnosed with acute CHF. Renal consulted for worsening renal fxn. Scr noted at 3.38, GFR 19 worsening to 3.89, GFR 16 with diuresis. No other labs noted in [place] system but on admit note several Scr documented latest at 3.53 in october of this year and another in 09/2015 at 2.93. Pt is aware of renal dysfxn and may have seen a dog walker in the past but quit going. He has has appointments with [facility] nephrologys and also in [place] which he cancelled due to being busy. No recent NSAIDs use noted. Past Med Surg Social Fam HX - Past Medical History Medical history: CHF, diabetes, kidney stones Psychiatric history: no psych history - Social History Smoking Status: Never smoker Smokeless Tobacco Status: No Alcohol use: none Drug use: none - Family History Mother Hx Family Cancer: Yes (throat sinrr9u) Medications and Allergies Amlodipine Besylate 10 mg PO DAILY 03/24/17 [History] Aspirin Enteric Coated [Aspirin EC] 81 mg PO DAILY 03/24/17 [History] Dorzolamide/Timolol [Cosopt] 1 drop BOTH EYES BID 03/24/17 [History] Furosemide [Lasix] 60 mg PO DAILY 03/24/17 [History] Insulin Glargine,Hum.rec.anlog [Lantus Solostar] 36 unit SQ QAM 03/24/17 [ History] Ketorolac OPTH Soln [Acular] 1 drop RIGHT EYE QID 03/24/17 [History] Metoprolol [Lopressor] 25 mg PO BID 03/24/17 [History] Potassium Chloride [Klor-Con 10] 10 meq PO DAILY 03/24/17 [History] 3 Allergy/AdvReac Type Severity Reaction Status Date / Time fluvastatin Allergy Difficulty Verified 03/24/17 19:24 Breathing gemfibrozil Allergy Difficulty Verified 03/24/17 19:24 Breathing lovastatin Allergy Difficulty Verified 03/24/17 19:24 Breathing Penicillins [PCN] Allergy Difficulty Verified 03/24/17 19:23 Breathing simvastatin Allergy Difficulty Verified 03/24/17 19:24 Breathing Exam - Vital Signs Vital signs: Initial Vital Signs Temp Pulse Resp BP Pulse Ox 98.4 F 64 18 190/87 100 03/24/17 19:18 03/24/17 19:18 03/24/17 19:18 03/24/17 19:18 03/24/17 19:18 Vital Signs - Last 8 Hours Temp Pulse Resp BP Pulse Ox 03/28/17 11:30 97.3 F L 65 15 127/53 92 03/28/17 07:13 98.2 F 62 15 151/55 94 Intake and Output 03/27/17 03/28/17 03/28/17 23:59 07:59 15:59 Intake Total 100 / 100 340 / 340 Balance 100 / 100 340 / 340 Intake: IV Fluids 100 / 100 100 / 100 Flexbumin 25 gm In 100 ml @ 60 100 / 100 100 / 100 mls/hr IVPB Q12HR [facility] Rx#: [id number] Oral 240 / 240 Other: Meal Breakfast Percent of Meal Consumed 100% Weight 108.681 kg Blood Glucose* 222 83 135 Patient Weight 03/28/17 23:59 Weight 108.681 kg - General Appearance General appearance: well-developed, well-nourished EENT: ATNC, mucous membranes moist Neck: no JVD, supple Additional Comments: decreased BS bases bilat Cardiology: edema (LE bilat), normal S1, normal S2 Gastrointestinal: no tenderness, no guarding, obese Integumentary: warm and dry Neurologic: no focal deficit Musculoskeletal: no deformities Psychiatric: mood/affect appropriate, cooperative Results - Lab Results 03/25/17 03:07 03/28/17 11:24 Most recent lab results Calcium 8.9 mg/dL (8.6-10.8) 03/28/17 11:24 Urine Creatinine 77 mg/dL 03/27/17 05:40 Urine Total Protein 253 mg/dL (1-14) H 03/27/17 05:40 Consult Discharge Plan - Plan [facility]errals: [facility] [Primary Care Provider] -
--- NOTE | 2017-03-28 14:00 | Nephrology Progress Note ---
Date of Encounter: 03/28/17 Time of Encounter: 14:00 - Assessment and Plan (1) Acute exacerbation of congestive heart failure Status: Acute UOP not documented Strict I/O advised Fluid restriction advised Qualifiers: Congestive heart failure type: unspecified congestive heart failure type Qualified Code(s): I50.9 - Heart failure, unspecified (2) CKD (chronic kidney disease) stage 4, GFR 15-29 ml/min Status: Chronic Sr worse at 4.45, GFR 13, likely from diuretics, will decrease dose Urine shows 3.3g proteinuria. Suspect DM a big cause of his CKD SPEP and UPEP pending PT elevated, vitamin d level pending Subjective Interval history: pt seen and examined with no new complaints. UOP not documented in the past 24hrs! Objective - Vital Signs Vital signs: Vital Signs Temp Pulse Resp BP Pulse Ox 03/28/17 11:30 97.3 F L 65 15 127/53 92 03/28/17 07:13 98.2 F 62 15 151/55 94 03/27/17 23:53 98.1 F 58 17 123/64 97 03/27/17 20:45 97 03/27/17 19:24 98.0 F 76 16 146/72 97 03/27/17 15:52 98.1 F 71 16 153/75 96 Intake and Output 03/27/17 03/28/17 03/28/17 23:59 07:59 15:59 Intake Total 100 / 100 340 / 340 Balance 100 / 100 340 / 340 Intake: IV Fluids 100 / 100 100 / 100 Flexbumin 25 gm In 100 ml @ 60 100 / 100 100 / 100 mls/hr IVPB Q12HR [facility] Rx#: [id number] Oral 240 / 240 Other: Meal Breakfast Percent of Meal Consumed 100% Weight 108.681 kg Blood Glucose* 222 83 135 Patient Weight 03/28/17 23:59 Weight 108.681 kg - General Appearance General appearance: Present: well-developed, well-nourished EENT: Present: ATNC, mucous membranes moist, tonsils absent Neck: Present: no JVD, supple Respiratory: Present: clear Cardiology: Present: edema (LE bilat unchanged), normal S1, normal S2 Gastrointestinal: Present: no tenderness, no guarding, obese Integumentary: Present: warm and dry Neurologic: Present: no focal deficit Musculoskeletal: Present: no deformities Psychiatric: Present: mood/affect appropriate - Lab 04/01/17 07:01 04/01/17 07:01 Most recent lab results Calcium 8.9 mg/dL (8.6-10.8) 03/28/17 11:24 Urine Creatinine 77 mg/dL 03/27/17 05:40 Urine Total Protein 253 mg/dL (1-14) H 03/27/17 05:40 Consult Discharge Plan - Plan Referrals: [facility] [Provider Group] - 04/05/17 9:00 am ([phone]) [facility] - (Please call to schedule follow up as soon as possible. Please inform your PCP of new onset Afib)
--- NOTE | 2017-03-28 16:37 | Internal Med Progress Note ---
Date of Encounter: 03/28/17 Time of Encounter: 15:45 - Assessment and plan (1) Acute exacerbation of congestive heart failure Current Visit: Yes Status: Acute Assessment and plan: Patient reports 3-4 day history of shortness of breath. He normally does not wear oxygen at home. He reports a nonproductive cough and increase in bilateral lower extremity edema. His lungs are clear and diminished. Patient does appear to be in fluid overload. BLE edema, +2-3 pitting today, improved from yesterday. Echocardiogram was completed LVEF of 55-60%, mild concentric LV hypertrophy, indeterminate diastolic dysfunction, no significant valvular dysfunction. BNP is elevated at 1173 on admission. Troponin is elevated 0.05 and 0.062. Likely due to demand ischemia, patient denies chest pain. Chest x-ray reveals increased density in the left retrocardiac region suggesting atelectasis or pneumonia. Will continue to monitor this, he has no leukocytosis or fever. Continue IV Lasix, decreased dose due to worsening renal function. Nephrology is on board. Continue telemetry. Continue daily weights, strict I and O, 1.5 L diet, low sodium diet. Continue oxygen as needed to maintain sats greater than 92%. Chest X-Ray 03/24/17 19:36 IMPRESSION: Focal increased density in the left retrocardiac region suggesting atelectasis or pneumonia. D/ / Adryan Wheeler / Adryan Wheeler Interpreting Provider: Adryan Wheeler Echocardiogram 03/25/17 03:25 Impressions: LVEF 55-60%. Mild concentric left ventricular hypertrophy. Indeterminate diastolic function. Moderate pulmonary hypertension. No significant valvular dysfunction. Left Ventricular Wall Motion: Rest Echo Findings All wall segments showed normal motion. Qualifiers: Congestive heart failure type: unspecified congestive heart failure type Qualified Code(s): I50.9 - Heart failure, unspecified (2) Dyspnea Current Visit: Yes Status: Acute Qualifiers: Dyspnea type: orthopnea Qualified Code(s): R06.01 - Orthopnea (3) Elevated troponin Current Visit: Yes Status: Acute Assessment and plan: Patient with flat, adynamic, mildly elevated troponin, 0.5 0.62 in the setting of CKD and CHF exacerbation. Most likely related to demand ischemia. Continue to monitor. Patient denies chest pain. (4) T2DM (type 2 diabetes mellitus) Current Visit: Yes Status: Chronic Assessment and plan: Patient has been mildly hyperglycemic throughout visit. We will continue to do moderate coverage sliding scale insulin, Accu-Cheks before meals at bedtime, diabetic diet. Patient did consume 2 large Thanksgiving dinners on the holiday. He admits to being primarily noncompliant with fluid restriction, low sodium, or diabetic diet. Monitor and cover as needed. (5) HTN (hypertension) Current Visit: Yes Status: Chronic Assessment and plan: Pt slightly hypertensive above guidelines. Will increase Norvasc. Continue to monitor vital signs and continue home medications. Hydralazine 10mg IVP q6h prn for systolic BP > 180mmhg Qualifiers: Hypertension type: unspecified Qualified Code(s): I10 - Essential (primary ) hypertension (6) CKD (chronic kidney disease) stage 4, GFR 15-29 ml/min Current Visit: Yes Status: Chronic Assessment and plan: Serum creatinine 4.45 GFR is 13. Renal function is worsening. Patient has no priors to compare, unaware of his baseline. Patient has proteinuria. Continue to avoid nephrotoxins IV fluids judiciously, if necessary. Patient is requiring IV Lasix for CHF. Retroperitoneal ultrasound completed. Kidneys with normal cortical echogenicity without evidence of hydronephrosis. Appears to be a 5 mm nonobstructing renal calculi in the right kidney. Nephrology recommends decreasing dose of diuretic due to to worsening CK D. Labs ordered by nephrology are still pending. Urine with proteinuria, suspected diabetes major cause of CK D. (7) Obesity (BMI 30-39.9) Current Visit: Yes Status: Chronic Assessment and plan: Chronic. Lifestyle changes. (8) DVT prophylaxis Current Visit: Yes Status: Acute Assessment and plan: Heparin subcutaneous daily, encourage ambulation as patient can tolerate. - Subjective Interval history: Patient was seen and assessed at 1545 AM. He alert, awake, oriented. Patient states that today he feels some better. Patient is able to lie supine in the bed without apparent distress. Peripheral edema is slightly improved, edema is now pitting to BLE. He denies headache, nausea, vomiting, diaphoresis, abdominal pain. Per nephrology note, it is recommended the patient stay for continued diuresis for the next 3 days. He is aware and agreeable. - Constitutional Vitals: Temp Pulse Resp BP Pulse Ox 98.2 F 70 16 126/62 93 03/28/17 15:53 03/28/17 15:53 03/28/17 15:53 03/28/17 15:53 03/28/17 15:53 General appearance: Present: cooperative, A&O X 3, morbidly obese, pleasant, no acute distress, answers questions appropriately Internal Medicine: Result - Labs CBC & Chem 7: 03/25/17 03:07 03/28/17 11:24 Labs: BMP 03/28/17 11:24 Sodium 143 Potassium 3.9 Chloride 108 Carbon Dioxide 24 BUN 67 H Creatinine 4.45 H Glucose 111 H Calcium 8.9 - ABG Interpretation ABG results: PT/INR, D-dimer PT 13.2 Seconds (9.4-12.1) H 03/24/17 20:24 Consult Discharge Plan - Plan [facility]errals: [facility] [Primary Care Provider] -
[2017-03-28] MEDS: Insulin DETEMIR 100 UNIT/ML X5UNITS SQ SCH (21:18)
[2017-03-28 21:55] LABS: Urine Collection Duration RANDOM hr; Urine Collection Volume RANDOM mL
[2017-03-29 00:27] LABS: Alpha 2 Globulin (PEP) 1.06 g/dL (0.48-1.05); Beta Globulin (PEP) 0.83 g/dL (0.48-1.10)
[2017-03-29 03:01] LABS: Basophils # 0.1 K/mcL (0.0-0.2); Basophils % 0.7 %; Eosinophils # 0.1 K/mcL (0.0-0.6); Eosinophils % 1.7 %; Hematocrit 25.8 % (37.5-50.1); Immature Granulocytes % 1.2 % (0-4); Lymphocytes # 0.9 K/mcL (0.6-4.6); Lymphocytes % 12.1 %; Mean Corpuscular HGB Conc 31.4 g/dL (31.6-35.5); Mean Corpuscular Hemoglobin 28.2 pg (28.0-33.3); Mean Corpuscular Volume 89.9 fL (83.0-100.0); Mean Platelet Volume 11.1 fL (9.4-12.4); Monocytes # 0.7 K/mcL (0.0-1.3); Monocytes % 9.1 %; Neutrophils # 5.7 K/mcL (1.6-8.9); Platelet Count 301 K/mcL (140-400); Red Blood Count 2.87 M/mcL (4.19-5.50); Red Cell Distribution Width 13.3 % (11.5-14.5); Segmented Neutrophils % 75.2 %
[2017-03-29 03:07] LABS: Hemoglobin 8.1 g/dL (12.9-16.9)
[2017-03-29 03:26] LABS: Calcium 9.1 mg/dL (8.6-10.8); Potassium 4.3 mEq/L (3.5-4.5)
[2017-03-29 07:40] LABS: IFE Reflexed NOT DONE
[2017-03-29] MEDS: Albumin 25% 25gram/100mL 25 GM/100 ML IV.SOLN IVPB SCH ×2 (08:55→18:00)
[2017-03-29] MEDS: Insulin LISPRO 300 UNITS/3 ML VIAL SQ SCH ×4 (09:01→20:39)
--- NOTE | 2017-03-29 09:02 | Electrocardiograph Report ---
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
[2017-03-29] MEDS: *HR* Heparin 5,000 UNIT/ML VIAL SQ SCH ×2 (09:04→17:34)
[2017-03-29] MEDS: levoFLOXacin 750 MG TABLET PO SCH (09:25)
[2017-03-29] MEDS: Dorzolamide/Timolol OPTH 10 ML BOTTLE BOTH EYES SCH ×2 (09:25→20:39)
[2017-03-29] MEDS: amLODIPine 5 MG TABLET PO SCH (09:25)
[2017-03-29] MEDS: Aspirin Enteric Coated 81 MG Tablet PO SCH (09:25)
[2017-03-29] MEDS: Furosemide 40 MG/4 ML VIAL IVP SCH ×2 (09:25→20:37)
[2017-03-29 10:09] LABS: % Iron Saturation 17 % (20-55); Iron 44 mcg/dL (65-175); Transferrin 190 mg/dL (174-364)
[2017-03-29 11:39] LABS: Folate 8.7 ng/mL (7.0-31.4)
--- NOTE | 2017-03-29 19:40 | Internal Med Progress Note ---
Date of Encounter: 03/29/17 Time of Encounter: 15:40 - Assessment and plan (1) Acute exacerbation of congestive heart failure Current Visit: Yes Status: Acute Assessment and plan: Patient reports 3-4 day history of shortness of breath prior to admission. He normally does not wear oxygen at home. He reports a nonproductive cough and increase in bilateral lower extremity edema. His lungs are clear and diminished. Patient does appear to be in fluid overload. BLE edema, +2-3 pitting today, improving. Echocardiogram was completed LVEF of 55-60%, mild concentric LV hypertrophy, indeterminate diastolic dysfunction, no significant valvular dysfunction. BNP is elevated at 1173 on admission. Troponin is elevated 0.05 and 0.062. Likely due to demand ischemia, patient denies chest pain. Chest x-ray reveals increased density in the left retrocardiac region suggesting atelectasis or pneumonia. Will continue to monitor this, he has no leukocytosis or fever. Patient is not requiring supplement oxygen today. He feels that his breathing is better. Patient appears to have decreased urine output and in balance between intake and output. He appears to not have lost any weight. Continue IV Lasix, decreased dose due to worsening renal function. Nephrology is on board. Continue telemetry. Continue daily weights, strict I and O, 1.5 L diet, low sodium diet. Continue oxygen as needed to maintain sats greater than 92%. Chest X-Ray 03/24/17 19:36 IMPRESSION: Focal increased density in the left retrocardiac region suggesting atelectasis or pneumonia. D/ / Adryan Wheeler / Adryan Wheeler Interpreting Provider: Adryan Wheeler Echocardiogram 03/25/17 03:25 Impressions: LVEF 55-60%. Mild concentric left ventricular hypertrophy. Indeterminate diastolic function. Moderate pulmonary hypertension. No significant valvular dysfunction. Left Ventricular Wall Motion: Rest Echo Findings All wall segments showed normal motion. Qualifiers: Congestive heart failure type: unspecified congestive heart failure type Qualified Code(s): I50.9 - Heart failure, unspecified (2) Dyspnea Current Visit: Yes Status: Acute Assessment and plan: Patient reports 3-4 days of shortness of breath, cough, and increased peripheral edema prior to admission. Patient does not wear O2 at home normally. He is not requiring supplemental 02 to maintain sats. Patient was not wearing supplemental oxygen during assessment this morning, he said he took it off and lost it. He does not appear to be in distress. No wheezing, ronchi, stridor. Plan as above. Qualifiers: Dyspnea type: orthopnea Qualified Code(s): R06.01 - Orthopnea (3) Elevated troponin Current Visit: Yes Status: Acute Assessment and plan: Patient with flat, adynamic, mildly elevated troponin, 0.5 0.62 in the setting of CKD and CHF exacerbation. Most likely related to demand ischemia. Continue to monitor. Patient denies chest pain. Continue telemetry (4) T2DM (type 2 diabetes mellitus) Current Visit: Yes Status: Chronic Assessment and plan: Patient has been mildly hyperglycemic throughout visit. We will continue to do moderate coverage sliding scale insulin, Accu-Cheks before meals at bedtime, diabetic diet. Patient did consume 2 large Thanksgiving dinners on the holiday. He admits to being primarily noncompliant with fluid restriction, low sodium, or diabetic diet. Diabetes is uncontrolled with A1c of 9.2. Monitor and cover as needed. (5) HTN (hypertension) Current Visit: Yes Status: Chronic Assessment and plan: Pt slightly hypertensive above guidelines. Continue to monitor vital signs and continue home medications. Hydralazine 10mg IVP q6h prn for systolic BP > 180mmhg Qualifiers: Hypertension type: unspecified Qualified Code(s): I10 - Essential (primary ) hypertension (6) CKD (chronic kidney disease) stage 4, GFR 15-29 ml/min Current Visit: Yes Status: Chronic Assessment and plan: Serum creatinine 4.98 GFR is 12. Renal function is worsening. Patient has proteinuria. Continue to avoid nephrotoxins IV fluids judiciously, if necessary. Patient is requiring IV Lasix for CHF, dose has been decreased on the recommendation of nephrology due to worsening renal function. Retroperitoneal ultrasound completed. Kidneys with normal cortical echogenicity without evidence of hydronephrosis. Appears to be a 5 mm nonobstructing renal calculi in the right kidney. Nephrology recommends decreasing dose of diuretic due to to worsening CK D. Labs ordered by nephrology are still pending. Urine with proteinuria, suspected diabetes major cause of CK D. Nephrology continues to follow. (7) Obesity (BMI 30-39.9) Current Visit: Yes Status: Chronic Assessment and plan: Chronic. Lifestyle changes. (8) DVT prophylaxis Current Visit: Yes Status: Acute Assessment and plan: Heparin subcutaneous daily has been discontinued due to increasing anemia, encourage ambulation as patient can tolerate. SCDs ordered (9) Anemia Current Visit: Yes Status: Acute Assessment and plan: Patient with increasing anemia throughout visit. Hemoglobin is 8.1 this morning. Most likely due to chronic renal disease. Type and screen were completed today. Prepared to transfuse if less than 8.0 Stool occult blood was ordered and pending. Iron level is only mildly decreased at 44, percent saturation is 17. Folate and B12 are within normal limits. Qualifiers: Anemia type: due to chronic kidney disease Chronic kidney disease stage: stage 5, not on chronic dialysis Qualified Code(s): N18.5 - Chronic kidney disease, stage 5; D63.1 - Anemia in chronic kidney disease; D63.1 - Anemia in chronic kidney disease - Time Spent With Patient less than 15 minutes - Subjective Interval history: Patient was seen and assessed at 1540 PM. He alert, awake, oriented. Patient states that today he feels better. Patient is able to lie supine in the bed without apparent distress. Peripheral edema is slightly improved, edema is now pitting to BLE. He denies headache, nausea, vomiting, diaphoresis, abdominal pain. Per nephrology note, it is recommended the patient stay for continued diuresis for the next 3 days. He is aware and agreeable. - Constitutional Vitals: Temp Pulse Resp BP Pulse Ox 98.8 F 64 16 148/73 96 03/29/17 18:38 03/29/17 18:38 03/29/17 18:38 03/29/17 18:38 03/29/17 18:38 General appearance: Present: cooperative, A&O X 3, morbidly obese, pleasant, no acute distress, answers questions appropriately - Head Head exam: Present: atraumatic, normal inspection, normocephalic - Eye Eye exam: Present: conjuntiva pink, sclera anicteric - Neck Neck exam general surgery: Present: supple, trachea midline. Absent: lymphadenopathy - Respiratory Respiratory exam: Present: CTAB. Absent: accessory muscle use, rales, rhonchi, wheezes - Cardiovascular Cardiovascular exam: Present: RRR, +S1, +S2. Absent: diastolic murmur, gallop, rubs, systolic murmur - GI/Abdominal GI/Abdominal exam: Present: distended, normal bowel sounds, soft. Absent: tenderness - Extremities Exam Extremities exam: Present: pedal edema, warm, radial pulses palpable and symmetrical. Absent: calf tenderness, cyanotic, normal capillary refill, normal inspection - Neurological Exam Neurological exam: Present: alert, oriented X3, no focal deficits. Absent: facial droop, speech deficit - Skin Skin exam: Present: dry, intact, warm Internal Medicine: Result - Labs CBC & Chem 7: 03/29/17 02:27 03/29/17 02:27 Labs: Short CBC 03/29/17 Range/Units 02:27 WBC 7.6 (4.3-11.1) K/mcL Hgb 8.1 L D (12.9-16.9) g/dL Hct 25.8 L (37.5-50.1) % Plt Count 301 (140-400) K/mcL Neutrophils # 5.7 (1.6-8.9) K/mcL BMP 03/29/17 02:27 Sodium 141 Potassium 4.3 Chloride 108 Carbon Dioxide 23 BUN 81 H Creatinine 4.98 H Glucose 189 H Calcium 9.1 - ABG Interpretation ABG results: PT/INR, D-dimer PT 13.2 Seconds (9.4-12.1) H 03/24/17 20:24 Consult Discharge Plan - Plan [facility]errals: [facility] [Primary Care Provider] -
[2017-03-29] MEDS: Insulin DETEMIR 100 UNIT/ML X5UNITS SQ SCH (20:38)
[2017-03-30 05:04] LABS: Basophils # 0.1 K/mcL (0.0-0.2); Basophils % 0.7 %; Eosinophils # 0.2 K/mcL (0.0-0.6); Eosinophils % 2.3 %; Hematocrit 25.5 % (37.5-50.1); Hemoglobin 8.1 g/dL (12.9-16.9); Immature Granulocytes % 0.4 % (0-4); Lymphocytes % 11.5 %; Mean Corpuscular HGB Conc 31.8 g/dL (31.6-35.5); Mean Corpuscular Hemoglobin 28.1 pg (28.0-33.3); Mean Corpuscular Volume 88.5 fL (83.0-100.0); Monocytes # 0.8 K/mcL (0.0-1.3); Monocytes % 9.1 %; Neutrophils # 6.5 K/mcL (1.6-8.9); Platelet Count 312 K/mcL (140-400); Red Blood Count 2.88 M/mcL (4.19-5.50); Red Cell Distribution Width 13.5 % (11.5-14.5)
[2017-03-30 05:26] LABS: Calcium 9.1 mg/dL (8.6-10.8); Potassium 4.4 mEq/L (3.5-4.5)
[2017-03-30] MEDS: Albumin 25% 25gram/100mL 25 GM/100 ML IV.SOLN IVPB SCH ×3 (06:25→18:14)
[2017-03-30] MEDS: *HR* Heparin 5,000 UNIT/ML VIAL SQ SCH ×3 (06:25→18:11)
[2017-03-30] MEDS: Insulin LISPRO 300 UNITS/3 ML VIAL SQ SCH ×4 (09:24→21:19)
[2017-03-30] MEDS: amLODIPine 5 MG TABLET PO SCH (09:35)
[2017-03-30] MEDS: Aspirin Enteric Coated 81 MG Tablet PO SCH (09:35)
[2017-03-30] MEDS: levoFLOXacin 750 MG TABLET PO SCH (09:35)
[2017-03-30] MEDS: Furosemide 40 MG/4 ML VIAL IVP SCH (09:36)
[2017-03-30] MEDS: Dorzolamide/Timolol OPTH 10 ML BOTTLE BOTH EYES SCH ×2 (09:36→21:23)
--- NOTE | 2017-03-30 12:41 | Nephrology Progress Note ---
Date of Encounter: 03/30/17 Time of Encounter: 12:39 - Assessment and Plan (1) CKD (chronic kidney disease) stage 4, GFR 15-29 ml/min Current Visit: Yes Status: Chronic Kidney function continues to worsen-Scr 5.25, GFR 11 UOP 375ml Vit D level 9-start Ergocalceferol 50,000 units once a week Folic acid 1mg daily B12 100mcg p.o daily Venofer 200mg p.o. every other day x 5 doses Hold Lasix RIOS, ANCA, rheumatoid factor ordered PTH 233.6 (2) Acute exacerbation of congestive heart failure Current Visit: Yes Status: Acute per primary team Qualifiers: Congestive heart failure type: unspecified congestive heart failure type Qualified Code(s): I50.9 - Heart failure, unspecified (3) T2DM (type 2 diabetes mellitus) Current Visit: Yes Status: Chronic per primary team Qualifiers: Diabetes mellitus complication status: with skin complications Diabetes mellitus complication detail: with other skin complication Diabetes mellitus terminologist insulin use: with terminologist use Qualified Code(s): E11.628 - Type 2 diabetes mellitus with other skin complications; Z79.4 - correction (current) use of insulin; Z79.4 - correction (current) use of insulin; Z79.4 - terminal 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 Sitting up in chair, states his breathing is better. Objective - Vital Signs Vital signs: Vital Signs Temp Pulse Resp BP Pulse Ox 03/30/17 11:58 98.8 F 58 16 171/73 94 03/30/17 07:34 98.3 F 61 16 169/76 92 03/30/17 03:11 97.6 F 55 17 154/76 96 03/29/17 23:07 98.0 F 57 16 155/78 95 03/29/17 18:38 98.8 F 64 16 148/73 96 03/29/17 14:58 97.3 F L 63 16 138/75 92 Intake and Output 03/29/17 03/30/17 03/30/17 23:59 07:59 15:59 Intake Total 400 / 400 360 / 360 Output Total 125 / 125 Balance 400 / 400 235 / 235 Intake: IV Fluids 100 / 100 Flexbumin 25 gm In 100 ml @ 60 100 / 100 mls/hr IVPB Q12HR MIRYAM Rx#: [id number] Oral 300 / 300 360 / 360 Output: Urine 125 / 125 Other: Meal Breakfast Percent of Meal Consumed 100% Weight 108.59 kg Blood Glucose* 276 90 179 Patient Weight 03/30/17 23:59 Weight 108.59 kg - General Appearance General appearance: Present: obese EENT: Present: ATNC, mucous membranes moist, hearing intact, vision intact Neck: Present: supple Respiratory: Present: clear Cardiology: Present: edema, normal S1, normal S2 Gastrointestinal: Present: no tenderness, no guarding, obese Integumentary: Present: warm and dry Neurologic: Present: alert and oriented x3 Psychiatric: Present: mood/affect appropriate, cooperative - Lab 03/30/17 04:22 03/30/17 04:22 Most recent lab results Calcium 9.1 mg/dL (8.6-10.8) 03/30/17 04:22 Urine Creatinine 77 mg/dL 03/27/17 05:40 Urine Total Protein SEE NOTE mg/d (10-140) 03/27/17 05:40 Consult Discharge Plan - Plan [facility]errals: [facility] [Primary Care Provider] -
[2017-03-30] MEDS ORDERED: Iron Sucrose Complex 200 MG in 0.9 % Sodium Chloride 100 ML IVPB SCH (13:30)
--- NOTE | 2017-03-30 15:46 | Internal Med Progress Note ---
Date of Encounter: 03/30/17 Time of Encounter: 15:40 - Assessment and plan (1) Acute exacerbation of congestive heart failure Current Visit: Yes Status: Acute Assessment and plan: Patient reports 3-4 day history of shortness of breath prior to admission. He normally does not wear oxygen at home. He reports a nonproductive cough and increase in bilateral lower extremity edema. TTE with 55-60%, mild concentric LV hypertrophy, indeterminate diastolic dysfunction, no significant valvular dysfunction. BNP is elevated at 1173 on admission. CXR concerning for pneumonia , aspiration. BNP 1100. Initially diuresis and IV Lasix however now on hold with worsening creatinine. With lower extremity edema but does not appear overtly overloaded. Holding Lasix, compression wraps, low Na diet, strict I and O's and daily weights. Qualifiers: Congestive heart failure type: unspecified congestive heart failure type Qualified Code(s): I50.9 - Heart failure, unspecified (2) CKD (chronic kidney disease) stage 4, GFR 15-29 ml/min Current Visit: Yes Status: Chronic Assessment and plan: With worsening kidney function. Nephrology following. Vit D level 9-start Ergocalceferol 50,000 units once a week. Folic acid, B12 daily. Venofer 200mg p.o. every other day x 5 doses. Holding Lasix for now (3) Anemia Current Visit: Yes Status: Acute Assessment and plan: Anemia of chronic disease, CKD. Hgb 10.4 on admission, dropped to 8.1. Hemodynamically stable, no active bleeding. IV venofer per nephrology. Monitor H&H, transfuse for Hgb less than 8. Qualifiers: Anemia type: due to chronic kidney disease Chronic kidney disease stage: stage 5, not on chronic dialysis Qualified Code(s): N18.5 - Chronic kidney disease, stage 5; D63.1 - Anemia in chronic kidney disease; D63.1 - Anemia in chronic kidney disease (4) Elevated troponin Current Visit: Yes Status: Acute (5) T2DM (type 2 diabetes mellitus) Current Visit: Yes Status: Chronic Assessment and plan: per hx. Hgb A1c 9.2%. At sugars variable. Continue SSI. 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 Lifestyle changes. - Subjective Interval history: Seen and examined at bedside. Patient is new to me, information obtained from chart review and patient report. Patient says swelling is significantly improved but still worse than baseline. No shortness of breath. - Constitutional Vitals: Temp Pulse Resp BP Pulse Ox 98.8 F 58 16 171/73 94 03/30/17 11:58 03/30/17 11:58 03/30/17 11:58 03/30/17 11:58 03/30/17 11:58 General appearance: Present: cooperative, A&O X 3, morbidly obese, pleasant, no acute distress, answers questions appropriately - Head Head exam: Present: atraumatic, normocephalic - Eye Eye exam: Present: PERRL, conjuntiva pink, sclera anicteric Pupils: Present: PERRL - Neck Neck exam general surgery: Present: supple, trachea midline. Absent: lymphadenopathy - Respiratory Respiratory exam: Present: CTAB. Absent: accessory muscle use, rales, rhonchi, wheezes - Cardiovascular Cardiovascular exam: Present: RRR, +S1, +S2. Absent: diastolic murmur, gallop, rubs, systolic murmur - GI/Abdominal GI/Abdominal exam: Present: normal bowel sounds, soft, no peritoneal signs. Absent: distended, tenderness - Extremities Exam Extremities exam: Present: pedal edema, warm, radial pulses palpable and symmetrical. Absent: calf tenderness, cyanotic - Neurological Exam Neurological exam: Present: CN II-XII intact, oriented X3, no focal deficits. Absent: pronater drift, facial droop, speech deficit - Skin Skin exam: Present: dry, intact Internal Medicine: Result - Labs CBC & Chem 7: 03/30/17 04:22 03/30/17 04:22 Labs: Short CBC 03/30/17 Range/Units 04:22 WBC 8.6 (4.3-11.1) K/mcL Hgb 8.1 L (12.9-16.9) g/dL Hct 25.5 L (37.5-50.1) % Plt Count 312 (140-400) K/mcL Neutrophils # 6.5 (1.6-8.9) K/mcL BMP 03/30/17 04:22 Sodium 141 Potassium 4.4 Chloride 108 Carbon Dioxide 22 BUN 94 H Creatinine 5.25 H Glucose 104 H Calcium 9.1 - ABG Interpretation ABG results: PT/INR, D-dimer PT 13.2 Seconds (9.4-12.1) H 03/24/17 20:24 Consult Discharge Plan - Plan Referrals: [facility] [Primary Care Provider] -
[2017-03-30] MEDS: Insulin DETEMIR 100 UNIT/ML X5UNITS SQ SCH (21:23)
[2017-03-31] MEDS: Albumin 25% 25gram/100mL 25 GM/100 ML IV.SOLN IVPB SCH ×2 (06:02→17:10)
[2017-03-31] MEDS: *HR* Heparin 5,000 UNIT/ML VIAL SQ SCH ×2 (06:03→17:11)
[2017-03-31] MEDS: Insulin LISPRO 300 UNITS/3 ML VIAL SQ SCH ×4 (08:23→20:34)
[2017-03-31] MEDS: levoFLOXacin 750 MG TABLET PO SCH (10:49)
[2017-03-31] MEDS: Folic Acid 1 MG TABLET PO SCH (10:49)
[2017-03-31] MEDS: Aspirin Enteric Coated 81 MG Tablet PO SCH (10:49)
[2017-03-31] MEDS: amLODIPine 5 MG TABLET PO SCH (10:49)
[2017-03-31] MEDS: Dorzolamide/Timolol OPTH 10 ML BOTTLE BOTH EYES SCH ×2 (10:49→20:34)
[2017-03-31] MEDS: Cyanocobalamin (B-12) 1,000 MCG TABLET PO SCH (10:50)
[2017-03-31 11:11] LABS: Hematocrit 27.5 % (37.5-50.1); Hemoglobin 8.5 g/dL (12.9-16.9); Mean Corpuscular HGB Conc 30.9 g/dL (31.6-35.5); Mean Corpuscular Hemoglobin 28.2 pg (28.0-33.3); Mean Corpuscular Volume 91.4 fL (83.0-100.0); Mean Platelet Volume 10.6 fL (9.4-12.4); Platelet Count 333 K/mcL (140-400); Red Blood Count 3.01 M/mcL (4.19-5.50); Red Cell Distribution Width 13.6 % (11.5-14.5)
--- NOTE | 2017-03-31 11:21 | Internal Med Progress Note ---
Date of Encounter: 03/31/17 Time of Encounter: 11:18 - Assessment and plan (1) Acute exacerbation of congestive heart failure Current Visit: Yes Status: Acute Assessment and plan: presented with 3-4 day history of worsening shortness of breath prior to admission. 03/25/2017 TTE with 55-60%, indeterminate diastolic dysfunction, no significant valvular dysfunction. BNP 1173. CXR concerning for atelectasis. Initially diuresis and IV Lasix however now on hold with worsening creatinine. With lower extremity edema but does not appear overtly overloaded. Holding Lasix, compression wraps, low Na diet, strict I and O's and daily weights. Qualifiers: Congestive heart failure type: unspecified congestive heart failure type Qualified Code(s): I50.9 - Heart failure, unspecified (2) CKD (chronic kidney disease) stage 4, GFR 15-29 ml/min Current Visit: Yes Status: Chronic Assessment and plan: per hx. Does not follow with Nephrology. Cr 3.2 on admission and increased to 5.3. Renal US unremarkable. IV lasix stopped. Nephrology following (3) Anemia Current Visit: Yes Status: Acute Assessment and plan: anemia of chronic disease secondary to CKD. Hgb 10.4 on admission, dropped to 8.1. Hemodynamically stable, no active bleeding. IV venofer per nephrology. Monitor H&H, transfuse for Hgb less than 8. Qualifiers: Anemia type: due to chronic kidney disease Chronic kidney disease stage: stage 5, not on chronic dialysis Qualified Code(s): N18.5 - Chronic kidney disease, stage 5; D63.1 - Anemia in chronic kidney disease; D63.1 - Anemia in chronic kidney disease (4) Elevated troponin Current Visit: Yes Status: Acute Assessment and plan: with flat, adynamic, mildly elevated troponin, 0.5 0.62 in the setting of CKD and CHF exacerbation. Most likely demand ischemia. Denies chest pain. Monitor on tele (5) T2DM (type 2 diabetes mellitus) Current Visit: Yes Status: Chronic Assessment and plan: per hx. Hgb A1c 9.2%. Blood sugars variable but acceptable. Continue SSI. 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 Lifestyle changes encouraged. - Subjective Interval history: Seen and examined at bedside. Sitting in chair at bedside, says the swelling in legs are about the same. He is trying to keep legs elevated. Denies CP, no SOB - Constitutional Vitals: Temp Pulse Resp BP Pulse Ox 98.6 F 59 15 148/79 94 03/31/17 07:08 03/31/17 07:08 03/31/17 07:08 03/31/17 07:08 03/31/17 07:08 General appearance: Present: cooperative, A&O X 3, morbidly obese, pleasant, no acute distress, answers questions appropriately - Head Head exam: Present: atraumatic, normocephalic - Eye Eye exam: Present: PERRL, conjuntiva pink, sclera anicteric Pupils: Present: PERRL - Neck Neck exam general surgery: Present: supple, trachea midline. Absent: lymphadenopathy - Respiratory Respiratory exam: Present: CTAB. Absent: accessory muscle use, rales, rhonchi, wheezes - Cardiovascular Cardiovascular exam: Present: RRR, +S1, +S2. Absent: diastolic murmur, gallop, rubs, systolic murmur - GI/Abdominal GI/Abdominal exam: Present: normal bowel sounds, soft, no peritoneal signs. Absent: distended, tenderness - Extremities Exam Extremities exam: Present: pedal edema, warm, radial pulses palpable and symmetrical. Absent: calf tenderness, cyanotic Additional comments: bi;lateral lower extremity edema with gross, hard edema - Neurological Exam Neurological exam: Present: CN II-XII intact, oriented X3, no focal deficits. Absent: pronater drift, facial droop, speech deficit - Skin Skin exam: Present: dry, intact Internal Medicine: Result - Labs CBC & Chem 7: 03/31/17 10:53 03/30/17 04:22 Labs: Short CBC 03/31/17 Range/Units 10:53 WBC 10.1 (4.3-11.1) K/mcL Hgb 8.5 L (12.9-16.9) g/dL Hct 27.5 L (37.5-50.1) % Plt Count 333 (140-400) K/mcL - ABG Interpretation ABG results: PT/INR, D-dimer PT 13.2 Seconds (9.4-12.1) H 03/24/17 20:24 Consult Discharge Plan - Plan [facility]errals: [facility] [Primary Care Provider] -
[2017-03-31 11:24] LABS: Calcium 9.6 mg/dL (8.6-10.8); Potassium 4.4 mEq/L (3.5-4.5)
[2017-03-31] MEDS ORDERED: 0.9 % Sodium Chloride 500 ML IVC ONE (12:42)
[2017-03-31] MEDS: Insulin DETEMIR 100 UNIT/ML X5UNITS SQ SCH (20:34)
[2017-04-01] MEDS: *HR* Heparin 5,000 UNIT/ML VIAL SQ SCH (05:55)
[2017-04-01] MEDS: Albumin 25% 25gram/100mL 25 GM/100 ML IV.SOLN IVPB SCH (05:56)
[2017-04-01 07:33] LABS: Hematocrit 24.7 % (37.5-50.1); Hemoglobin 7.8 g/dL (12.9-16.9); Mean Corpuscular HGB Conc 31.6 g/dL (31.6-35.5); Mean Corpuscular Hemoglobin 28.4 pg (28.0-33.3); Mean Corpuscular Volume 89.8 fL (83.0-100.0); Mean Platelet Volume 10.8 fL (9.4-12.4); Platelet Count 325 K/mcL (140-400); Red Blood Count 2.75 M/mcL (4.19-5.50); Red Cell Distribution Width 13.7 % (11.5-14.5)
[2017-04-01 07:44] LABS: Calcium 9.2 mg/dL (8.6-10.8); Potassium 4.4 mEq/L (3.5-4.5)
[2017-04-01] MEDS: Insulin LISPRO 300 UNITS/3 ML VIAL SQ SCH ×2 (08:07→11:08)
[2017-04-01] MEDS: Cyanocobalamin (B-12) 1,000 MCG TABLET PO SCH (09:36)
[2017-04-01] MEDS: Dorzolamide/Timolol OPTH 10 ML BOTTLE BOTH EYES SCH (09:36)
[2017-04-01] MEDS: amLODIPine 5 MG TABLET PO SCH (09:36)
[2017-04-01] MEDS: levoFLOXacin 750 MG TABLET PO SCH (09:36)
[2017-04-01] MEDS: Aspirin Enteric Coated 81 MG Tablet PO SCH (09:36)
[2017-04-01] MEDS: Folic Acid 1 MG TABLET PO SCH (09:36)
[2017-04-01 09:43] LABS: Hepatitis B Surface Antigen Nonreactive (Nonreactive)
--- NOTE | 2017-04-01 10:21 | Internal Med Progress Note ---
Date of Encounter: 04/01/17 Time of Encounter: 10:19 - Assessment and plan (1) CKD (chronic kidney disease) stage 4, GFR 15-29 ml/min Current Visit: Yes Status: Chronic Assessment and plan: per hx. Does not follow with Nephrology. Cr 3.2 on admission and increased to 5.5. Non-oliguric. Renal US unremarkable. IV lasix stopped. Nephrology following (2) Anemia Current Visit: Yes Status: Acute Assessment and plan: anemia of chronic disease secondary to CKD. Hgb 10.4 on admission, dropped to 8.1. Hemodynamically stable, no active bleeding. IV venofer per nephrology. Hgb 7.8 on 04/01. Patient refusing blood transfusion at this time. Continue to monitor H&H. Qualifiers: Anemia type: due to chronic kidney disease Chronic kidney disease stage: stage 5, not on chronic dialysis Qualified Code(s): N18.5 - Chronic kidney disease, stage 5; D63.1 - Anemia in chronic kidney disease; D63.1 - Anemia in chronic kidney disease (3) Atrial fibrillation Current Visit: Yes Status: Acute Assessment and plan: new onset overnight on 03/31/2017. EKG with A. fib with slow ventricular response. No previous history of A. fib per patient. Stopped BP, no anticoagulation with worsening anemia. Cardiology consulted Qualifiers: Atrial fibrillation type: paroxysmal Qualified Code(s): I48.0 - Paroxysmal atrial fibrillation (4) Acute exacerbation of congestive heart failure Current Visit: Yes Status: Acute Assessment and plan: presented with 3-4 day history of worsening shortness of breath prior to admission. 03/25/2017 TTE with 55-60%, indeterminate diastolic dysfunction, no significant valvular dysfunction. BNP 1173. CXR concerning for atelectasis. Initially diuresis and IV Lasix however now on hold with worsening creatinine. With lower extremity edema but does not appear overtly overloaded. Holding Lasix, compression wraps, low Na diet, strict I and O's and daily weights. Qualifiers: Congestive heart failure type: unspecified congestive heart failure type Qualified Code(s): I50.9 - Heart failure, unspecified (5) Elevated troponin Current Visit: Yes Status: Acute Assessment and plan: with flat, adynamic, mildly elevated troponin, 0.5 0.62 in the setting of CKD and CHF exacerbation. Most likely demand ischemia. Denies chest pain. Monitor on tele (6) T2DM (type 2 diabetes mellitus) Current Visit: Yes Status: Chronic Assessment and plan: per hx. Hgb A1c 9.2%. Blood sugars variable but acceptable. Continue SSI. 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 Lifestyle changes encouraged. - Subjective Interval history: Seen and examined at bedside. Sitting up in chair. Says he wants to go home today, says he feels like he is not getting any better and does not see the sense in staying in the hospital. Explained to him the importance of staying for further evaluation of his kidney disease, hemoglobin and new onset A. fib. Patient says he feels he would be better off at home versus staying in the hospital. Appears to have decision-making capacity. - Constitutional Vitals: Temp Pulse Resp BP Pulse Ox 97.3 F L 53 18 114/55 96 04/01/17 07:52 04/01/17 07:52 04/01/17 07:52 04/01/17 07:52 04/01/17 07:52 General appearance: Present: cooperative, A&O X 3, morbidly obese, pleasant, no acute distress, answers questions appropriately - Head Head exam: Present: atraumatic, normocephalic - Eye Eye exam: Present: PERRL, conjuntiva pink, sclera anicteric Pupils: Present: PERRL - Neck Neck exam general surgery: Present: supple, trachea midline. Absent: lymphadenopathy - Respiratory Respiratory exam: Present: CTAB. Absent: accessory muscle use, rales, rhonchi, wheezes - Cardiovascular Cardiovascular exam: Present: irregular rhythm, +S1, +S2. Absent: diastolic murmur, gallop, rubs, systolic murmur - GI/Abdominal GI/Abdominal exam: Present: normal bowel sounds, soft, no peritoneal signs. Absent: distended, tenderness - Extremities Exam Extremities exam: Present: pedal edema, warm, radial pulses palpable and symmetrical. Absent: calf tenderness, cyanotic, mottling - Neurological Exam Neurological exam: Present: CN II-XII intact, oriented X3, no focal deficits. Absent: pronater drift, facial droop, speech deficit - Skin Skin exam: Present: dry, intact Internal Medicine: Result - Labs CBC & Chem 7: 04/01/17 07:01 04/01/17 07:01 Labs: Short CBC 03/31/17 04/01/17 Range/Units 10:53 07:01 WBC 10.1 10.0 (4.3-11.1) K/mcL Hgb 8.5 L 7.8 L (12.9-16.9) g/dL Hct 27.5 L 24.7 L (37.5-50.1) % Plt Count 333 325 (140-400) K/mcL [facility] 03/31/17 04/01/17 10:53 07:01 Sodium 141 142 Potassium 4.4 4.4 Chloride 108 110 H Carbon Dioxide 21 21 BUN 107 H 120 H Creatinine 5.30 H 5.53 H Glucose 149 H 104 H Calcium 9.6 9.2 - ABG Interpretation ABG results: PT/INR, D-dimer PT 13.2 Seconds (9.4-12.1) H 03/24/17 20:24 - Impressions Impressions Chest X-Ray 03/31/17 11:26 IMPRESSION: No acute pulmonary process. Previously suggested retrocardiac opacification not appreciated. D/ / Deon Cole / Deon Cole Interpreting Provider: Deon Cole Consult Discharge Plan - Plan [facility]errals: [facility] [Primary Care Provider] -
[2017-04-01 10:55] VITALS: BP 110/54
--- NOTE | 2017-04-01 12:58 | Nephrology Progress Note ---
Date of Encounter: 04/01/17 Time of Encounter: 12:55 - Assessment and Plan (1) CKD (chronic kidney disease) stage 4, GFR 15-29 ml/min Current Visit: Yes Status: Chronic Kidney function stable at Scr 5.53, GFR 10 UOP 650ml Patient states he is leaving in an hour-sounds like he is leaving AMA Advised patient his kidney function is stable but still not at his baseline. If he leaves hospital strongly recommend he has a BMP in 1 week and follow up in office in 10 days to 2 weeks (2) Acute exacerbation of congestive heart failure Current Visit: Yes Status: Acute per primary team Qualifiers: Congestive heart failure type: unspecified congestive heart failure type Qualified Code(s): I50.9 - Heart failure, unspecified (3) T2DM (type 2 diabetes mellitus) Current Visit: Yes Status: Chronic per primary team Qualifiers: Diabetes mellitus complication status: with skin complications Diabetes mellitus complication detail: with other skin complication Diabetes mellitus intermediate manager insulin use: with intermediate manager use Qualified Code(s): E11.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 Goal hgb 10-11 Qualifiers: Anemia type: due to chronic kidney disease Chronic kidney disease stage: stage 5, not on chronic dialysis Qualified Code(s): N18.5 - Chronic kidney disease, stage 5; D63.1 - Anemia in chronic kidney disease; D63.1 - Anemia in chronic kidney disease Subjective Principal diagnosis: Acute exacerbation of congestive heart failure, CKD stage 4 Interval history: Patient seen and examined. Sitting up in chair, says "they want to give me a transfusion"; also states he is leaving in an hour. Objective - Vital Signs Vital signs: Vital Signs Temp Pulse Resp BP Pulse Ox 04/01/17 10:49 98.9 F 54 18 110/54 92 04/01/17 07:52 97.3 F L 53 18 114/55 96 04/01/17 03:18 97.9 F 45 16 121/59 93 03/31/17 23:04 98.6 F 61 16 106/50 92 03/31/17 20:31 94 03/31/17 18:29 98.9 F 76 16 134/70 95 03/31/17 15:17 98.5 F 58 15 147/74 95 Intake and Output 03/31/17 04/01/17 04/01/17 23:59 07:59 15:59 Intake Total 590 / 590 240 / 240 Output Total 350 / 350 150 / 150 Balance 240 / 240 90 / 90 Intake: IV Fluids 100 / 100 Flexbumin 25 gm In 100 ml @ 60 100 / 100 mls/hr IVPB Q12HR MIRYAM Rx#: [id number] Oral 490 / 490 240 / 240 Output: Urine 350 / 350 150 / 150 Other: Meal Dinner Breakfast Percent of Meal Consumed 100% 100% # Voids 2 Weight 112.309 kg Blood Glucose* 262 103 138 Patient Weight 04/01/17 23:59 Weight 112.309 kg - General Appearance General appearance: Present: obese EENT: Present: ATNC, mucous membranes moist, hearing intact, vision intact Neck: Present: supple Respiratory: Present: clear Cardiology: Present: edema, normal S1, normal S2 Gastrointestinal: Present: no guarding, obese Integumentary: Present: warm and dry Neurologic: Present: alert and oriented x3 Psychiatric: Present: mood/affect appropriate, cooperative - Lab 04/01/17 07:01 04/01/17 07:01 Most recent lab results Calcium 9.2 mg/dL (8.6-10.8) 04/01/17 07:01 Urine Creatinine 77 mg/dL 03/27/17 05:40 Urine Total Protein SEE NOTE mg/d (10-140) 03/27/17 05:40 Consult Discharge Plan - Plan [facility]errals: [facility] [Primary Care Provider] -
[2017-04-01 15:13] LABS: ANA IgG by ELISA NONE DETECTED (None Detected)
[2017-04-02 08:32] LABS: Myeloperoxidase Ab 0 AU/mL (0-19); Serine Protease-3 Antibody 0 AU/mL (0-19)
[2017-04-02 11:20] LABS: Hepatitis B Surface Antibody 0.25 mIU/mL
--- NOTE | 2017-04-02 16:48 | Electrocardiograph Report ---
[address] [place] [address] Test Date: 2017-04-01 Pat Name: Shawn Chery Department: 113 Room: 3B64 Gender: M Fulfillment Coordinator: : 1950 Requested By: Denise Abdul Order Number: [id number] Reading MD: Abad Noe DO Measurements Intervals [place] Rate: 44 P: NH: 0 QRS: -16 QRSD: 94 T: 21 QT: 474 QTc: 425 Interpretive Statements Atrial fibrillation with slow ventricular response Septal infarction, age undetermined Low QRS voltage Nonspecific ST-T changes Electronically Signed On 04-02-2017 16:46:20 EST by Abad Noe DO
--- NOTE | 2017-04-03 13:38 | Electrocardiograph Report ---
[address] [address] Test Date: 2017-04-01 Pat Name: Shawn Chery Department: 113 Room: 3B Gender: M Ssis Etl Developer: : 1950 Requested By: Denise Abdul Order Number: [id number] Reading MD: Gerard Kimbrough Measurements Intervals [place] Rate: 39 P: MT: 0 QRS: -20 QRSD: 106 T: -25 QT: 510 QTc: 435 Interpretive Statements Sinus bradycardia with long first degree AV block type 1 second degree AV block Electronically Signed On 04-03-2017 13:36:58 EST by Gerard Kimbrough
--- NOTE | 2017-04-15 07:56 | Discharge Summary ---
Date of Encounter: 04/01/17 Time of Encounter: 18:00 - Discharge Diagnosis (1) CKD (chronic kidney disease) stage 4, GFR 15-29 ml/min Priority: Primary Status: Chronic Comments: Kidney function stable at Scr 5.53, GFR 10. UOP 650ml. Seen by Nephrology who advised patient his kidney function is stable but still not at his baseline. Patient refusing further medical treatment at this time and left AMA (2) Anemia Priority: Primary Status: Acute Comments: anemia of chronic disease secondary to CKD. Hgb 10.4 on admission, dropped to 8.1. Hemodynamically stable, no active bleeding. IV venofer per nephrology. Hgb 7.8 on 04/01. Patient refusing blood transfusion. Left AMA Qualifiers: Anemia type: due to chronic kidney disease Chronic kidney disease stage: on chronic dialysis Qualified Code(s): N18.6 - End stage renal disease; D63.1 - Anemia in chronic kidney disease; D63.1 - Anemia in chronic kidney disease; Z99.2 - Dependence on renal dialysis; Z99.2 - Dependence on renal dialysis; Z99.2 - Dependence on renal dialysis; Z99.2 - Dependence on renal dialysis (3) Atrial fibrillation Priority: Primary Status: Acute Comments: new onset overnight on 03/31/2017. EKG with A. fib with slow ventricular response. No previous history of A. fib per patient. Stopped BP, no anticoagulation with worsening anemia. Cardiology consulted but patient left AMA Qualifiers: Atrial fibrillation type: paroxysmal Qualified Code(s): I48.0 - Paroxysmal atrial fibrillation (4) Acute exacerbation of congestive heart failure Priority: Primary Status: Acute Comments: presented with 3-4 day history of worsening shortness of breath prior to admission. 03/25/2017 TTE with 55-60%, indeterminate diastolic dysfunction, no significant valvular dysfunction. BNP 1173. CXR concerning for atelectasis. Initially diuresis and IV Lasix however now on hold with worsening creatinine. With lower extremity edema but does not appear overtly overloaded. Holding Lasix. Patient left AMA Qualifiers: Congestive heart failure type: unspecified congestive heart failure type Qualified Code(s): I50.9 - Heart failure, unspecified (5) Elevated troponin Priority: Primary Status: Acute Comments: with flat, adynamic, mildly elevated troponin, 0.5 0.62 in the setting of CKD and CHF exacerbation. Most likely demand ischemia. Cardiology consulted however patient left AMA (6) T2DM (type 2 diabetes mellitus) Priority: Primary Status: Chronic Comments: per hx. Hgb A1c 9.2%. Blood sugars variable but acceptable. Qualifiers: Diabetes mellitus complication status: with skin complications Diabetes mellitus complication detail: with other skin complication Diabetes mellitus custodial insulin use: with custodial use Qualified Code(s): E11.628 - Type 2 diabetes mellitus with other skin complications; Z79.4 - rat exterminator (current) use of insulin; Z79.4 - custodial (current) use of insulin; Z79.4 - rat exterminator ( current) use of insulin; Z79.4 - custodial (current) use of insulin (7) Obesity (BMI 30-39.9) Priority: Primary Status: Chronic Comments: Chronic. Lifestyle changes encouraged. - Discharge Medications Home Medications: Amlodipine Besylate 10 mg PO DAILY 03/24/17 [History] Aspirin Enteric Coated [Aspirin EC] 81 mg PO DAILY 03/24/17 [History] Dorzolamide/Timolol [Cosopt] 1 drop BOTH EYES BID 03/24/17 [History] Furosemide [Lasix] 60 mg PO DAILY 03/24/17 [History] Insulin Glargine,Hum.rec.anlog [Lantus Solostar] 36 unit SQ QAM 03/24/17 [ History] Ketorolac OPTH Soln [Acular] 1 drop LEFT EYE BID 03/24/17 [History] Metoprolol [Lopressor] 25 mg PO BID 03/24/17 [History] Potassium Chloride [Klor-Con 10] 10 meq PO DAILY 03/24/17 [History] Nitroglycerin [Nitrostat] 0.4 mg SL Q5M PRN 04/08/17 [History] Folic Acid 1 mg PO DAILY #30 tablet 04/14/17 [Rx] Allergies/Adverse Reactions: 3 Allergy/AdvReac Type Severity Reaction Status Date / Time fluvastatin Allergy Difficulty Verified 03/24/17 19:24 Breathing gemfibrozil Allergy Difficulty Verified 03/24/17 19:24 Breathing lovastatin Allergy Difficulty Verified 03/24/17 19:24 Breathing Penicillins [PCN] Allergy Difficulty Verified 03/24/17 19:23 Breathing simvastatin Allergy Difficulty Verified 03/24/17 19:24 Breathing Date of admission: 03/25/17 08:58 Primary care physician: PCP TERENCE Consults: 03/25/17 17:19 Consult to Nephrology [CONS] Routine Consulting Provider: Luna Rueda/[facility] Reason for Consult: Proteinuria, Sr Cr 3.45, GFR 18. Pt is also in exac CHF and is requiring diuresis. Recommendations, please. Pt has no prior visit here to trend labs Call Completed: No 04/01/17 10:26 Consult to Cardiology [CONS] Routine Comment: Consulting Provider: Cardiology Marybeth Reason for Consult: new onset a-fib Call Completed: Yes Discharging clinician: Marlin Crouch Anticipated date of discharge: 04/01/17 - Patient Status Disposition: Left Against Medical Advice Condition: Fair Functional capacity at discharge: uses cane/walker Overall status at discharge: patient is not back to baseline - Discharge Instructions Follow Up With: Luna Rueda/[facility] [Provider Group] - 04/05/17 9:00 am ([phone]) [facility] - (Please call to schedule follow up as soon as possible. Please inform your PCP of new onset Afib) - Diet and Activity Activity: increase activity as tolerated Diet: diabetic diet, low fat, low cholesterol, low salt diet Interval History: Seen and examined at bedside, patient is refusing further care at this time. I spoke with patient 3 times prior to him leaving AMA. Strongly encouraged patient to stay for further work-up and treatment however patient refused. Discussed with family at bedside. Patient was advised that he is at risk for cardiac/kidney failure including if he leaves AMA. Patient and family verbalized understanding and patient left AMA Hospital course: Mr. Chery is a 66 year old male - Time Spent with Patient Total time spent providing and/or coordinating discharge services: - Constitutional Vitals: Temp Pulse Resp BP Pulse Ox 98.9 F 54 18 110/54 92 04/01/17 10:49 04/01/17 10:49 04/01/17 10:49 04/01/17 10:49 04/01/17 10:49 General appearance: Present: cooperative, A&O X 3, morbidly obese, pleasant, no acute distress, answers questions appropriately
== END 2017-04-01 14:59 | disposition left against medical advice (07) | DRG 291 ==
LOC: EMEROO 19:11 → 3BNU 19:11
PROVIDERS: ADMIT Family Medicine; ATTEND Registered Nurse

== ENCOUNTER 2017-04-08 14:36 | Inpatient (IN) ==
--- NOTE | 2017-04-08 15:50 | Emergency Department Note ---
Disposition Clinical Impression: ESRD (end stage renal disease), Hyperkalemia, Wenckebach second degree AV block , Encounter for medication refill Disposition: Admitted As Inpatient Condition: Fair [facility]errals: [facility] [Primary Care Provider] - Forms: ED Satisfaction Letter Time of Disposition: 17:19 General Adult HPI - General Chief complaint: ED Recheck/Abnormal Lab/Rx Stated complaint: "kidney failure, CHF" Source: patient, family Limitations: no limitations Nursing Notes Reviewed: Yes Vital Signs Reviewed: Yes - History of Present Illness HPI Narrative: Patient presents from the nephrologists office because of renal failure and the stories that the patient did leave AGAINST MEDICAL ADVICE several days ago but now said he will stay and is sent here because of renal failure as well as hyperkalemia. The patient is still taking his potassium. He has had significant fatigue for the last several weeks which is constant and he denies any pain in the head, neck, chest, abdomen or back. He is here with his son and [id number]. Patient denies any dizziness. Social history: No smoking or alcohol. He has never smoked the past. Constitutional: No fever Vision: He does have chronically decreased vision ENT: No rhinorrhea Respiratory: No cough Allergic: No allergies : No blood in urine seen but he does have a problem with low vision GI: No blood in stool seen, but he does have a problem with low vision Hematologic: + bruising Dermatologic: No skin rash Musculoskeletal: No pain in the extremities Neuro: No new numbness of the extremities Pain Scale: 0 - Related Data Home Medications Medication Instructions Recorded Confirmed Amlodipine Besylate 10 mg PO DAILY 03/24/17 04/08/17 Aspirin Enteric Coated [Aspirin EC] 81 mg PO DAILY 03/24/17 04/08/17 Dorzolamide/Timolol [Cosopt] 1 drop BOTH EYES BID 03/24/17 04/08/17 Furosemide [Lasix] 60 mg PO DAILY 03/24/17 04/08/17 Insulin Glargine,Hum.rec.anlog 36 unit SQ QAM 03/24/17 04/08/17 [Lantus Solostar] Ketorolac OPTH Soln [Acular] 1 drop RIGHT EYE QID 03/24/17 04/08/17 Metoprolol [Lopressor] 25 mg PO BID 03/24/17 04/08/17 Potassium Chloride [Klor-Con 10] 10 meq PO DAILY 03/24/17 04/08/17 Nitroglycerin [Nitrostat] 0.4 mg SL Q5M PRN 04/08/17 04/08/17 Allergies Allergy/AdvReac Type Severity Reaction Status Date / Time fluvastatin Allergy Difficulty Verified 03/24/17 19:24 Breathing gemfibrozil Allergy Difficulty Verified 03/24/17 19:24 Breathing lovastatin Allergy Difficulty Verified 03/24/17 19:24 Breathing Penicillins [PCN] Allergy Difficulty Verified 03/24/17 19:23 Breathing simvastatin Allergy Difficulty Verified 03/24/17 19:24 Breathing Review of Systems: As Per HPI Past Medical History - Past Medical History Medical history: Reports: CHF, diabetes, kidney stones Psychiatric history: Reports: no psych history - Social History Smoking Status: Never smoker Smokeless Tobacco Status: No Alcohol use: Reports: none Drug use: Reports: none Physical Exam CONSTITUTIONAL: Alert and oriented X3, well-nourished, tired appearing, in no apparent distress HEAD: Normocephalic; atraumatic. EYES: PERRL, no scleral icterus. NOSE: The nose is normal in appearance without rhinorrhea RESP: Normal chest excursion with respiration; breath sounds clear and equal bilaterally; no wheezes, rhonchi, or rales CARD: Regular rhythm, without murmurs, rub or gallop ABD: Non-distended; non-tender, soft,without rigidity, rebound or guarding SKIN: Normal for age and race; warm and dry; no apparent lesions - General Limitations: no limitations General appearance: alert, in no apparent distress Course Vital Signs Temperature 97.7 F 04/08/17 14:39 Pulse Rate 40 04/08/17 14:39 Respiratory Rate 18 04/08/17 14:39 Blood Pressure 132/63 04/08/17 14:39 O2 Sat by Pulse Oximetry 96 04/08/17 14:39 Temperature 97.7 F 04/08/17 14:39 Pulse Rate 45 04/08/17 17:57 Respiratory Rate 18 04/08/17 17:57 Blood Pressure 125/72 04/08/17 17:57 O2 Sat by Pulse Oximetry 100 04/08/17 17:57 Oxygen Delivery Oxygen Delivery Nasal Cannula Medical Decision Making - [facility] Narrative Medical decision making narrative: Patient symptoms concerning. I did review the EKG showing sinus bradycardia with second degree AV block which is [place] and the heart rate is 35 however the patient does not have any dizziness was not necessarily symptomatic with this. Labs including electrolytes including potassium are being checked, pacer pads are on the patient and the crash cart as the room. The patient will be admitted to the hospital for nephrology consultation. Initial results pending. He denies any abdominal pain but does have bruising across the abdomen. I did review the patient's labs and patient does have increased potassium which is concerning compared to the previous potassium level and the patient will receive IV calcium gluconate, dextrose and insulin, sodium bicarbonate as well as Lasix the patient does have significant lower extremity peripheral edema and appears to be fluid overloaded. We did discuss with nephrology and the patient will undergo emergent dialysis. Patient will be admitted to the hospital. 1716 I did speak with the hospitalist who accepted the patient for admission. I did speak with the insurance sales executive who is in the room and did place a dialysis catheter for emergent dialysis today. The patient's heart rate is now in the 40s and 50s and is significantly improved from the past after administration of medications. 1823 - Medical Records Medical records reviewed: Yes I reviewed the patient's medical records. - Lab Data Lab results reviewed: Yes I reviewed the patient's lab results. Result diagrams: 04/08/17 15:32 04/08/17 15:32 Lab Results 04/08/17 04/08/17 04/08/17 Range/Units 15:32 15:32 15:32 WBC 12.2 H (4.3-11.1) K/mcL RBC 2.85 L (4.19-5.50) M/mcL Hgb 8.1 L (12.9-16.9) g/dL Hct 25.8 L (37.5-50.1) % MCV 90.5 (83.0-100.0) fL MCH 28.4 (28.0-33.3) pg MCHC 31.4 L (31.6-35.5) g/dL RDW 14.3 (11.5-14.5) % Plt Count 253 (140-400) K/mcL MPV 11.4 (9.4-12.4) fL PT 14.9 H (9.4-12.1) Seconds INR 1.4 Sodium 140 (136-145) mEq/L Potassium 6.4 H (3.5-4.5) mEq/L Chloride 109 (98-109) mEq/L Carbon Dioxide 17 L (19-29) mEq/L BUN 158 H (8-26) mg/dL Creatinine 6.62 H (0.72-1.25) mg/dL Est GFR ( Amer) 10 L (> 60) Est GFR (Non-Af Amer) 8 L (> 60) BUN/Creatinine Ratio 24 (6-26) Glucose 206 H (70-99) mg/dL Calculated Osmolality 348 H (280-300) Calcium 9.0 (8.6-10.8) mg/dL - Radiology Data Radiology results reviewed: Yes I reviewed the patient's radiology results. Critical Care Time Critical Care Time: Yes Total Critical Care Time: 40 Attestation: 40 minutes of critical care time was the patient who did come in and acute renal failure and with a heart rate ranged between the high 20s and mid 30s and was in 20 voc rhythm. This is likely secondary to hyperkalemia. The patient's current heart rate has improved. I checked on the patient multiple times. His admitted to nephrology for emergent dialysis.
[2017-04-08 15:56] LABS: Hematocrit 25.8 % (37.5-50.1); Hemoglobin 8.1 g/dL (12.9-16.9); Mean Corpuscular HGB Conc 31.4 g/dL (31.6-35.5); Mean Corpuscular Hemoglobin 28.4 pg (28.0-33.3); Mean Corpuscular Volume 90.5 fL (83.0-100.0); Mean Platelet Volume 11.4 fL (9.4-12.4); Platelet Count 253 K/mcL (140-400); Red Blood Count 2.85 M/mcL (4.19-5.50); Red Cell Distribution Width 14.3 % (11.5-14.5)
[2017-04-08 15:59] LABS: Potassium 6.4 mEq/L (3.5-4.5)
[2017-04-08] MEDS ORDERED: CALCIUM GLUCONATE IVPB ONE (16:17)
[2017-04-08] MEDS ORDERED: SODIUM CHLORIDE 0.9% IVPB ONE (16:17)
[2017-04-08] MEDS ORDERED: 0.9 % Sodium Chloride 1,000 ML IVC ONE (16:20)
[2017-04-08] MEDS ORDERED: Sodium Bicarbonate 50 MEQ/50 ML VIAL IVP ONE (16:21)
[2017-04-08] MEDS ORDERED: *HR* Dextrose 50 % in Water (Syg) 50 ML SYRINGE IVP ONE (16:21)
[2017-04-08] MEDS ORDERED: Insulin Human Regular 10 UNIT in 0.9 % Sodium Chloride 10 ML IV ONE (16:21)
[2017-04-08] MEDS ORDERED: Furosemide 40 MG/4 ML VIAL IVP ONE (16:23)
[2017-04-08 16:38] LABS: INR 1.4; Prothrombin Time 14.9 Seconds (9.4-12.1)
--- NOTE | 2017-04-08 16:39 | Nephrology Consult Note ---
Date of Encounter: 04/08/17 Time of Encounter: 16:34 Assessment and Plan (1) ESRD (end stage renal disease) Current Visit: Yes Status: Acute I suspect he has progressed to ESRD and this is no longer an SAHIL on CKD stage IV. Presently the pt is very hyperkalemic with significant EKG changes: he will need emergent HD. He does not have a dialysis catheter, and the IR service has left for the day. I'll plan to recommend to the pt emergent HD and placement of a temporary HD catheter by me. I reviewed the R/B/I and potential AE profiles of line placement and HD. I communicated HD logistics with the ER and the inpatient critical care nurse. I have ordered a short treatment of HD tonight for 2hr, 2K, 3kg goal UF and lower BFR and DFR. He will likely need more HD tomorrow. Fluid overload Given his severe bradycardic state, he may need either ICU or 2N step-down, but will defer this to either the ER or the primary team. Appreciate the Hospitalist service. Meanwhile continue to follow a renal protective strategy: avoid NSAIDs, IV contrast and Bactrim. I spent 71 min in CCT involved in a combination of interview/examination, medical record review, logistics of finding a dialysis catheter kit after hours but not directly including the procedure time. This pt is of high severity, complexity and still at great risk of morbidity and mortality given the decree of his renal failure with symptomatic hyperkalemia. Thank you for consulting the [facility] group. I will be available on-call tonight till 8am, when my colleague Dr. Jack will be on- call. (2) Hyperkalemia Current Visit: Yes Status: Acute See above (3) Fluid overload Current Visit: Yes Status: Acute From renal failure Qualifiers: Hypervolemia type: other Qualified Code(s): E87.79 - Other fluid overload (4) Uremia Current Visit: Yes Status: Acute This may contribute to some uremic bleeding risks. Will need to monitor the HD catheter site. (5) Anemia Current Visit: No Status: Acute Qualifiers: Anemia type: due to chronic kidney disease Chronic kidney disease stage: stage 5, not on chronic dialysis Qualified Code(s): N18.5 - Chronic kidney disease, stage 5; D63.1 - Anemia in chronic kidney disease; D63.1 - Anemia in chronic kidney disease History of Present Illness - Reason for Consult Consult date: 04/08/17 end stage renal disease Requesting physician: Mane Anderson - Chief Complaint Symptomatic hyperkalemia, Fluid overload, Renal failure - History of Present Illness Shawn Chery is a very pleasant 66 y/o obese gentleman with a pmh of advanced CKD, longstanding DM, HTN and et al who established care with Dr. Jack while hospitalized at [facility] in Mar for SAHIL, A/C Systolic CHF, edema. Also my other colleague Dr. Vu saw the pt as well during the same hospitalization. However, the pt left AMA despite severe renal failure. Later on the pt underwent outpatient lab testing with Dr. Vu, who is currently out of town, and while I was rounding in my CKD clinic, I was asked to review the pt 's labs, which demonstrated worsened hyperkalemia and CKD. In fact there was a phone note in [facility] based upon these labs in which Dr. Vu recommended the pt go to the ER a few days ago. Instead of going to the ER, the pt arrived at the [facility] office later this afternoon. Given the severity of these labs, I concurred with Dr. Vus notes, and I also recommended the return to the hospital via the ER. Presently the pt is very hyperkalemic with significant EKG changes: he will need emergent HD. He does not have a dialysis catheter, and the IR service has left for the day. I'll plan to recommend to the pt emergent HD and placement of a temporary HD catheter by me. I reviewed the R/B/I and potential AE profiles of line placement and HD. I communicated HD logistics with the ER and the inpatient critical care nurse. The pt denied use of NSAIDs. He was taken of diuretics, he said at some point, and his edema has continue to dramatically worsen. He was seen/evaluated in the ER and was accompanied by a female and male relative. He affirm having diminished appetite, shortness of breath, worsening cough, but no CP, N/V/D or F /C. No FHx of ESRD Past Med Surg Social Fam HX - Past Medical History Medical history: CHF, diabetes, kidney stones Psychiatric history: no psych history - Social History Smoking Status: Never smoker Smokeless Tobacco Status: No Alcohol use: none Drug use: none - Family History Mother Hx Family Cancer: Yes (throat [id number]) Medications and Allergies Amlodipine Besylate 10 mg PO DAILY 03/24/17 [History] Aspirin Enteric Coated [Aspirin EC] 81 mg PO DAILY 03/24/17 [History] Dorzolamide/Timolol [Cosopt] 1 drop BOTH EYES BID 03/24/17 [History] Furosemide [Lasix] 60 mg PO DAILY 03/24/17 [History] Insulin Glargine,Hum.rec.anlog [Lantus Solostar] 36 unit SQ QAM 03/24/17 [ History] Ketorolac OPTH Soln [Acular] 1 drop RIGHT EYE QID 03/24/17 [History] Metoprolol [Lopressor] 25 mg PO BID 03/24/17 [History] Potassium Chloride [Klor-Con 10] 10 meq PO DAILY 03/24/17 [History] Nitroglycerin [Nitrostat] 0.4 mg SL Q5M PRN 04/08/17 [History] 3 Allergy/AdvReac Type Severity Reaction Status Date / Time fluvastatin Allergy Difficulty Verified 03/24/17 19:24 Breathing gemfibrozil Allergy Difficulty Verified 03/24/17 19:24 Breathing lovastatin Allergy Difficulty Verified 03/24/17 19:24 Breathing Penicillins [PCN] Allergy Difficulty Verified 03/24/17 19:23 Breathing simvastatin Allergy Difficulty Verified 03/24/17 19:24 Breathing Review of Systems All Systems: reviewed and no additional remarkable complaints except as stated Exam - Vital Signs Vital signs: Initial Vital Signs Temp Pulse Resp BP Pulse Ox 97.7 F 40 18 132/63 96 04/08/17 14:39 04/08/17 14:39 04/08/17 14:39 04/08/17 14:39 04/08/17 14:39 Vital Signs - Last 8 Hours Temp Pulse Resp BP Pulse Ox 04/08/17 14:39 97.7 F 40 18 132/63 96 Intake and Output 04/08/17 04/08/17 04/08/17 07:59 15:59 23:59 Other: Weight 113.398 kg Patient Weight 04/08/17 23:59 Weight 113.398 kg - General Appearance General appearance: well-developed, well-nourished, appears started age, obese, moderate distress, fatigue, frail EENT: ATNC, PERRL, mucous membranes dry Neck: supple Respiratory: course breath sounds Cardiology: edema (severe), normal S1, normal S2 Additional Comments: Very bradycardic Gastrointestinal: normoactive bowel sounds, no tenderness, no guarding, no organomegaly, obese Integumentary: warm and dry, ecchymotic Neurologic: no focal deficit, no asterixis, alert and oriented x3 Musculoskeletal: no erythema, no cyanosis Psychiatric: mood/affect appropriate, cooperative Results - Lab Results 04/08/17 15:32 04/08/17 15:32 Most recent lab results Calcium 9.0 mg/dL (8.6-10.8) 04/08/17 15:32 I reviewed the labs, meds, vitals, imaging, inpt and outpt progress notes: see HPI for summary. Consult Discharge Plan - Plan [facility]errals: [facility] [Primary Care Provider[facility] -
[2017-04-08] MEDS ORDERED: 0.9 % Sodium Chloride 250 ML IVC PRN (16:40)
--- NOTE | 2017-04-08 19:26 | Nephrology Procedure Note ---
Date of procedure: 04/08/17 Pre-op diagnosis: Renal failure, Symptomatic Hyperkalemia Post-op diagnosis: same Procedure Performed: IJ dialysis catheter (Right) Procedure: Mr. Shawn Chery was evaluated in the ER after hours for emergent dialysis needs. I thoroughly reviewed the R/B/I and potential AE for placement of an IJ temporary HD catheter. He was accompanied by a male and female relative. He voiced consent to proceed, and I signed both the HD and CVC consent forms. A time out was called with the pt and the CAFETERIA MANAGER, and all parties agreed to proceed. I washed my hands with soap and water. Using real time U/S, the RIJ vein was easily identified and the site was marked. I placed NC 2L/min and laid his bed flat, which he tolerated. Then using sterile technique I donned a mask, cap, gown and sterile gloves; the kit was opened, a drape was placed and the site was cleaned x2 with chlorhexidine. I placed a probe cover and prepared the kit. Using real time U/S, I advanced the finder needle to the RIJ vein and easily cannulated the vein. There was some initial difficult at first in passing the guide wire, but upon reattempt, the guidewire advanced smoothly without any tachycardia noted on the monitor. A small incision was make at the finder needle and the needle was removed over the wire. Then a small dilator was advanced over the wire, and the second dilator was advanced over the wire. I then passed the triple lumen 15 [place] 16 cm HD catheter over the wire and placed the HD catheter at the hub. The entire wire was removed. I checked all three lumens and excellent blood flow was noted on aspiration; then, I flushed all three lumens with sterile saline. Two sutures were placed to secure the catheter. A biopatch was placed and then a Tegaderm was applied. I disposed of all sharps. About 15 min later, he had some mild ozzing noted, and then I held pressure for about 5 min with 4x4 pads. Two Biogels were applied and two fresh 4x4s were folded over length garber plus a new biopatch with wide tape applied. He tolerated the procedure very well. CXR was ordered. Anesthesia: local (6 cc of kit-provided lido) Estimated blood loss (cc): 10 IV fluids (cc): 0 Pathology: none sent Condition: other (his symptomatic bradycardia was present before the proceedure and remains the same during and immediately after the proceedure.) Disposition: no change (He remained in the ER room.)
[2017-04-08] MEDS ORDERED: 0.9 % Sodium Chloride 2,000 ML ONE (20:42)
[2017-04-08] MEDS ORDERED: Dextrose Gel 15 GM PO PRN ×2 (21:30)
[2017-04-08] MEDS ORDERED: D5% in Water 1,000 ML IVC PRN (21:30)
[2017-04-08] MEDS ORDERED: *HR* Dextrose 50 % in Water (Syg) 50 ML SYRINGE IVP PRN (21:30)
[2017-04-08] MEDS ORDERED: Naloxone 0.4 MG/ML INJ IVP PRN (21:31)
--- NOTE | 2017-04-08 22:17 | Internal Med History&Physical ---
Date of Encounter: 04/08/17 Time of Encounter: 21:45 Assessment and Plan (1) ESRD (end stage renal disease) Current visit: Yes Status: Acute ESRD, not on chronic hemodialysis - with symptomatic hyperkalemia with EKG changes Emergent HD done today, Dr. Talavera has evaluated patient today Chest x-ray - HD catheter in good position, no acute cardiopulmonary process Troponin - 0.02 BNP - 784 Avoid nephrotoxic agents including NSAIDs, IV contrast and Bactrim Repeat labs in a.m., cardiac telemetry, monitor closely (2) Wenckebach second degree AV block Current visit: Yes Status: Acute Symptomatic hyperkalemia, causing second-degree AV block - now improving after hemodialysis Troponin - 0.02 EKG - second-degree heart block, Wenkebach BNP - 784 Cardiac telemetry, monitor closely, repeat EKG in a.m. 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 insulin use: with predatory animal exterminator use Chronic kidney disease stage: stage 5, not on chronic dialysis Qualified Code( s): E11.22 - Type 2 diabetes mellitus with diabetic chronic kidney disease; N18.5 - Chronic kidney disease, stage 5; N18.5 - Chronic kidney disease, stage 5 ; N18.5 - Chronic kidney disease, stage 5; N18.5 - Chronic kidney disease, stage 5; Z79.4 - termination clerk (current) use of insulin; Z79.4 - termination clerk (current ) use of insulin; Z79.4 - FDC (current) use of insulin; Z79.4 - termination clerk (current) use of insulin (5) HTN (hypertension) Current visit: Yes Status: Chronic Essential hypertension, controlled, monitor The patient's home dose of Norvasc, Lopressor, Lasix Patient has been advised to stop Lasix in the past Qualifiers: Hypertension type: essential hypertension Qualified Code(s): I10 - Essential (primary) hypertension (6) Atrial fibrillation Current visit: Yes Status: Acute Chronic atrial fibrillation, slow ventricular rate Hold Lopressor, monitor closely Qualifiers: Atrial fibrillation type: paroxysmal Qualified Code(s): I48.0 - Paroxysmal atrial fibrillation (7) DVT prophylaxis Current visit: Yes Status: Acute Heparin subcutaneous Internal Medicine - H&P: HPI Chief complaint: Generalized weakness, shortness of breath Admitted From: Emergency Dept Plans for Post Hospital Care: Home History of present illness: Mr. Chery is a 66 year old male with past medical history of CKD stage IV-V, CHF , diabetes, atrial fibrillation, hyperlipidemia and hypertension. Patient presents to the ED with complaints of generalized weakness and shortness of breath. Patient examined during emergent dialysis today. Patient is awake and alert. Not in any distress. Able to provide all history. No family members at bedside. Patient states he was advised to go to the ER because of worsening labs. Patient has significantly elevated potassium. Have significant EKG changes with second-degree heart block. Patient complains of generalized weakness over the past 3-4 days also complains of worsening shortness of breath. Patient also states he has worsening bilateral lower leg edema. Symptoms have all been going on for about one week. Patient was admitted about 2 weeks ago for acute exacerbation of CHF, and he left AMA. Patient did not follow-up with nephrology as outpatient for lab work. His labs did not show significant elevation in potassium and creatinine. He was advised to go to the ED. Patient denies chest pain or headache or dizziness. He does have mild cough which is also worsening. No vomiting or diarrhea or fever. Patient's symptoms are worse with exertion. No alleviating factors. No other associated symptoms. No other acute complaints at this time. Initial workup in the ED is significant for second-degree heart block and significantly elevated creatinine and potassium. Dr. Talavera has evaluated the patient in the ED. Dialysis catheter has been placed and patient is undergoing dialysis at this time. Patient will be transferred to the ICU for close monitoring. Patient has been explained about his condition and plan of care in detail. He understood and agreed. No unanswered questions. CODE STATUS full code. 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) - Social History Smoking Status: Never smoker Smokeless Tobacco Status: No Alcohol use: none Drug use: none - Family History Mother Hx Family Cancer: Yes (throat [id number]) Internal Medicine - H&P: Meds Amlodipine Besylate 10 mg PO DAILY 03/24/17 [History] Aspirin Enteric Coated [Aspirin EC] 81 mg PO DAILY 03/24/17 [History] Dorzolamide/Timolol [Cosopt] 1 drop BOTH EYES BID 03/24/17 [History] Furosemide [Lasix] 60 mg PO DAILY 03/24/17 [History] Insulin Glargine,Hum.rec.anlog [Lantus Solostar] 36 unit SQ QAM 03/24/17 [ History] Ketorolac OPTH Soln [Acular] 1 drop RIGHT EYE QID 03/24/17 [History] Metoprolol [Lopressor] 25 mg PO BID 03/24/17 [History] Potassium Chloride [Klor-Con 10] 10 meq PO DAILY 03/24/17 [History] Nitroglycerin [Nitrostat] 0.4 mg SL Q5M PRN 04/08/17 [History] 3 Allergy/AdvReac Type Severity Reaction Status Date / Time fluvastatin Allergy Difficulty Verified 03/24/17 19:24 Breathing gemfibrozil Allergy Difficulty Verified 03/24/17 19:24 Breathing lovastatin Allergy Difficulty Verified 03/24/17 19:24 Breathing Penicillins [PCN] Allergy Difficulty Verified 03/24/17 19:23 Breathing simvastatin Allergy Difficulty Verified 03/24/17 19:24 Breathing All Systems PM: A 10-system review of systems was performed and is negative for pertinent findings except as documented above in the HPI. - Constitutional Constitutional: fatigue, no fever(s), no falls, no weakness - EENT Eyes: no blurry vision - Cardiovascular Cardiovascular ROS IM: dyspnea, dyspnea on exertion, edema, orthopnea, no chest pain, no palpitations, no syncope - Respiratory Respiratory: cough, dyspnea, dyspnea on exertion, chest congestion, no hemoptysis, no wheezing - Gastrointestinal Gastrointestinal: no abdominal pain, no bloating, no cramping, no diarrhea, no hematochezia, no loose stools, no melena, no nausea, no vomiting - Genitourinary Genitourinary ROS male: no dysuria - Neurological Neurological ROS: no abnormal gait, no confusion, no dizziness, no loss of vision, no numbness, no tingling - Constitutional Vitals: Temp Pulse Resp BP Pulse Ox 97.7 F 45 17 108/87 100 04/08/17 14:39 04/08/17 17:57 04/08/17 19:45 04/08/17 19:45 04/08/17 17:57 General appearance: Present: cooperative, A&O X 3, morbidly obese, pleasant, no acute distress, answers questions appropriately - Head Head exam: Present: atraumatic - Eye Eye exam: Present: EOMI - ENT ENT exam: Present: mucous membranes dry - Respiratory Respiratory exam: Present: rales (Mild bilateral). Absent: accessory muscle use , chest wall tenderness, respiratory distress, rhonchi, wheezes, tachypnea - Cardiovascular Cardiovascular exam: Present: irregular rhythm, +S1, +S2 - GI/Abdominal GI/Abdominal exam: Present: distended (Obese), soft, no peritoneal signs. Absent: firm, guarding, tenderness - Extremities Exam Extremities exam: Present: pedal edema (Bilateral lower legs 3+ pitting edema), radial pulses palpable and symmetrical. 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 Absent: facial droop, speech deficit Internal Med - H&P Results - Labs CBC & Chem 7: 04/08/17 15:32 04/08/17 15:32
[2017-04-08] MEDS: *HR* Heparin 5,000 UNIT/ML VIAL SQ SCH (23:13)
[2017-04-08] MEDS: Insulin LISPRO 300 UNITS/3 ML VIAL SQ SCH (23:13)
[2017-04-09] MEDS: Insulin LISPRO 300 UNITS/3 ML VIAL SQ SCH ×4 (00:40→17:50)
[2017-04-09 04:55] LABS: Basophils % 0.4 %; Eosinophils # 0.6 K/mcL (0.0-0.6); Eosinophils % 5.6 %; Hematocrit 22.2 % (37.5-50.1); Hemoglobin 7.1 g/dL (12.9-16.9); Immature Granulocytes % 0.3 % (0-4); Lymphocytes # 0.9 K/mcL (0.6-4.6); Mean Corpuscular Hemoglobin 28.4 pg (28.0-33.3); Mean Corpuscular Volume 88.8 fL (83.0-100.0); Mean Platelet Volume 11.3 fL (9.4-12.4); Monocytes # 0.9 K/mcL (0.0-1.3); Monocytes % 8.7 %; Neutrophils # 7.6 K/mcL (1.6-8.9); Platelet Count 217 K/mcL (140-400); Red Cell Distribution Width 14.1 % (11.5-14.5)
[2017-04-09 05:13] LABS: Albumin 2.9 g/dL (3.5-5.0); Albumin/Globulin Ratio 0.9 (1.1-2.2); Bilirubin,Total 0.5 mg/dL (0.2-1.2); Calcium 8.7 mg/dL (8.6-10.8); Globulin 3.4 g/dL (2.4-3.5); Total Protein 6.3 g/dL (6.0-8.3)
[2017-04-09 05:14] LABS: Potassium 4.5 mEq/L (3.5-4.5)
[2017-04-09] MEDS ORDERED: 0.9 % Sodium Chloride 250 ML IVC PRN (05:25)
[2017-04-09] MEDS: Aspirin Enteric Coated 81 MG Tablet PO SCH (08:30)
[2017-04-09] MEDS: *HR* Heparin 5,000 UNIT/ML VIAL SQ SCH ×3 (09:03→23:52)
[2017-04-09 09:30] LABS: Hepatitis B Surface Antibody 0.41 mIU/mL; Hepatitis B Surface Antigen Nonreactive (Nonreactive)
[2017-04-09] MEDS ORDERED: Ondansetron 4 MG/2 ML VIAL IVP PRN (10:56)
[2017-04-09] MEDS ORDERED: Ondansetron 4 MG/2 ML VIAL ONE (10:58)
[2017-04-09] MEDS ORDERED: 0.9 % Sodium Chloride 2,000 ML ONE (12:10)
[2017-04-09] MEDS ORDERED: Heparin 1,000 UNITS/500 mL NS 500 ML ONE (14:03)
[2017-04-09] MEDS ORDERED: Clindamycin 600 MG/50 ML 600 MG/50 ML IV.SOLN IVPB ONE (14:03)
[2017-04-09] MEDS ORDERED: *HR* FentaNYL (PF) 100 MCG/2 ML VIAL IVP ONE (14:03)
[2017-04-09] MEDS ORDERED: *HR* Midazolam HCl 2 MG/2 ML VIAL IVP ONE (14:03)
[2017-04-09] MEDS ORDERED: 0.9 % Sodium Chloride 500 ML ONE (14:10)
[2017-04-09] MEDS ORDERED: *HR* Heparin 5,000 UNIT/ML VIAL ONE (14:36)
--- NOTE | 2017-04-09 14:37 | IR Procedure Note ---
Date of procedure: 04/09/17 Consent Obtained: Verbal consent Timeout: Correct patient and procedure verified, Correct site verified, Time out performed, Skin prep completed Local anesthetic: Lidocaine 1% Indications: Acute renal insufficiency Procedure Performed: Tunneled HD catheter placement Site/Technique: RIJV used for access. Temp HD catheter pulled. Results/Findings: Working well. Ok to use. Estimated blood loss (cc): 2 Complications: None; Tolerated procedure well Post Procedure Treatment Plan: Monitoring in pts room
--- NOTE | 2017-04-09 14:46 | Internal Med Progress Note ---
<Jodi Jacome - Last Filed: 04/09/17 14:56> Date of Encounter: 04/09/17 Time of Encounter: 09:30 - Assessment and plan (1) ESRD (end stage renal disease) Current Visit: Yes Status: Acute Assessment and plan: Patient is known history of C Joy stage IV. Not previously requiring hemodialysis. Presented with profound hyperkalemia with potassium of 6.4 in EKG changes. Nephrology following. Performed emergent dialysis evening of 04/08. Appreciate input and expertise. Possible plans for further hemodialysis. Hepatitis B antigen pending. chest x-ray perform showing hemodialysis catheter in place otherwise no acute cardiopulmonary process BNP was 784, troponin not elevated at 0.02. Avoid all nephrotoxins. Continue to monitor kidney function. (2) Hyperkalemia Current Visit: Yes Status: Acute Assessment and plan: Patient presented with potassium is 6.4 with EKG changes requiring emergent dialysis. Potassium improved to 4.5 after [facility] dialysis. Bradycardia and other EKG changes appear to be resolving. Continue cardiac telemetry. Continue to monitor as previously mentioned (3) Wenckebach second degree AV block Current Visit: Yes Status: Acute Assessment and plan: Patient had EKG in ER demonstrating a second-degree Wenckebach heart block. Likely secondary to severe hyperkalemia. Continue cardiac telemetry. Rate has improved and patient is no longer bradycardia. Expect EKG changes to resolve his hyperkalemia continues to improve. Nephrology is following. (4) HTN (hypertension) Current Visit: Yes Status: Chronic Assessment and plan: Chronic. Stable. Patient is on Norvasc, Lopressor and Lasix at home. He has previously been formed to hold his Lasix. Will hold beta kody and Lasix for now. We will continue to monitor blood pressure and control appropriately. Qualifiers: Hypertension type: essential hypertension Qualified Code(s): I10 - Essential (primary) hypertension (5) Atrial fibrillation Current Visit: Yes Status: Acute Assessment and plan: Patient is on Lopressor. Given bradycardia presentation, Lopressor was held. Will resume once heart rate stabilizes. Qualifiers: Atrial fibrillation type: paroxysmal Qualified Code(s): I48.0 - Paroxysmal atrial fibrillation (6) Diabetes mellitus Current Visit: Yes Status: Chronic Assessment and plan: Continue medium dose sliding scale every 6 hours of operation is NPO. Qualifiers: Diabetes mellitus type: type 2 Diabetes mellitus complication status: with kidney complications Diabetes mellitus complication detail: with chronic kidney disease Diabetes mellitus longterm insulin use: with longterm use Chronic kidney disease stage: stage 5, not on chronic dialysis Qualified Code( s): E11.22 - Type 2 diabetes mellitus with diabetic chronic kidney disease; N18.6 - End stage renal disease; N18.6 - End stage renal disease; N18.6 - End stage renal disease; N18.6 - End stage renal disease; Z79.4 - halfway (current ) use of insulin; Z79.4 - exterminator helper (current) use of insulin; Z79.4 - exterminator helper (current) use of insulin; Z79.4 - halfway (current) use of insulin; Z99.2 - Dependence on renal dialysis; Z99.2 - Dependence on renal dialysis; Z99.2 - Dependence on renal dialysis; Z99.2 - Dependence on renal dialysis - Subjective Interval history: Patient admitted overnight, anti-hyperkalemia with potassium of 6.4 with associated EKGs changes with bradycardia and evidence of 2nd degree heart block ([place]). He had emergent hemodialysis catheter inserted by nephrology overnight and received emergent hemodialysis. Overnight he had complications including prolonged losing which was very difficult to stop from the catheter site, requiring pressure as well as other methods. Due to the continuous using , his morning dose of subcutaneous heparin was held. Patients rate has improved this morning although he is still having episodes of both 1st and 2nd degree heart block, his heart rate has improved to a regular rate and he is no longer profoundly bradycardia. This morning, patient has no acute complaints. He states he realized he left earlier on his previous visit that he should have. He is currently feeling improved with regards to his shortness of breath and states he does not feel as bloated as he did on his presentation to the emergency room. He is still feeling fatigued, however otherwise he has no acute complaints. - Constitutional Vitals: Temp Pulse Resp BP Pulse Ox 97.9 F 48 15 151/66 98 04/09/17 12:00 04/09/17 14:28 04/09/17 14:28 04/09/17 14:28 04/09/17 14:28 General appearance: Present: cooperative, A&O X 3, morbidly obese, pleasant, no acute distress, answers questions appropriately - Head Head exam: Present: atraumatic, normocephalic - ENT ENT exam: Present: mucous membranes moist - Neck Neck exam general surgery: Present: supple, trachea midline Additional comments: Hemodialysis catheter in place and left-sided neck, clot evident near catheter insertion, no fluctuations or induration felt - Respiratory Respiratory exam: Present: CTAB. Absent: rales, rhonchi, stridor, wheezes - Cardiovascular Cardiovascular exam: Present: RRR, +S1, +S2. Absent: diastolic murmur, systolic murmur - GI/Abdominal GI/Abdominal exam: Present: normal bowel sounds, soft. Absent: distended, guarding, tenderness - Extremities Exam Extremities exam: Present: normal capillary refill. Absent: pedal edema Internal Medicine: Result - Labs CBC & Chem 7: 04/09/17 04:30 04/09/17 04:30 Labs: Short CBC 04/09/17 Range/Units 04:30 WBC 10.0 (4.3-11.1) K/mcL Hgb 7.1 L (12.9-16.9) g/dL Hct 22.2 L (37.5-50.1) % Plt Count 217 (140-400) K/mcL Neutrophils # 7.6 (1.6-8.9) K/mcL BMP 04/09/17 04:30 Sodium 144 Potassium 4.5 D Chloride 108 Carbon Dioxide 22 BUN 115 H D Creatinine 5.08 H Glucose 124 H Calcium 8.7 Liver Function 04/09/17 Range/Units 04:30 Total Bilirubin 0.5 (0.2-1.2) mg/dL AST 11 (5-34) Units/L ALT 14 (0-55) Units/L Alkaline Phosphatase 49 (38-126) Units/L Albumin 2.9 L (3.5-5.0) g/dL - ABG Interpretation ABG results: PT/INR, D-dimer PT 14.9 Seconds (9.4-12.1) H 04/08/17 15:32 Consult Discharge Plan - Plan [facility]errals: [facility] [Primary Care Provider] - <Carmelo Saenz - Last Filed: 04/09/17 18:46> Date of Encounter: 04/09/17 - Assessment and plan (1) Hyperkalemia Current Visit: Yes Status: Acute (2) Wenckebach second degree AV block Current Visit: Yes Status: Acute (3) ESRD (end stage renal disease) Current Visit: Yes Status: Acute (4) Atrial fibrillation Current Visit: Yes Status: Acute Qualifiers: Atrial fibrillation type: paroxysmal Qualified Code(s): I48.0 - Paroxysmal atrial fibrillation (5) Diabetes mellitus Current Visit: Yes Status: Chronic Qualifiers: Diabetes mellitus type: type 2 Diabetes mellitus complication status: with kidney complications Diabetes mellitus complication detail: with chronic kidney disease 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 insulin 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: with longterm use Chronic kidney disease stage: on chronic dialysis Qualified Code(s): E11.22 - Type 2 diabetes mellitus with diabetic chronic kidney disease; N18.6 - End stage renal disease; N18.6 - End stage renal disease; N18.6 - End stage renal disease; N18.6 - End stage renal disease; Z79.4 - exterminator helper (current) use of insulin; Z79.4 - exterminator helper (current) use of insulin; Z79.4 - halfway (current ) use of insulin; Z79.4 - exterminator helper (current) use of insulin; Z99.2 - Dependence on renal dialysis; Z99.2 - Dependence on renal dialysis; Z99.2 - Dependence on renal dialysis; Z99.2 - Dependence on renal dialysis (6) HTN (hypertension) Current Visit: Yes Status: Chronic Qualifiers: Hypertension type: essential hypertension Qualified Code(s): I10 - Essential (primary) hypertension - Constitutional Vitals: Temp Pulse Resp BP Pulse Ox 97.6 F 64 20 144/62 100 04/09/17 17:04 04/09/17 18:00 04/09/17 18:00 04/09/17 18:00 04/09/17 18:00 Internal Medicine: Result - Labs CBC & Chem 7: 04/09/17 04:30 04/09/17 04:30 Labs: Short CBC 04/09/17 Range/Units 04:30 WBC 10.0 (4.3-11.1) K/mcL Hgb 7.1 L (12.9-16.9) g/dL Hct 22.2 L (37.5-50.1) % Plt Count 217 (140-400) K/mcL Neutrophils # 7.6 (1.6-8.9) K/mcL BMP 04/09/17 04:30 Sodium 144 Potassium 4.5 D Chloride 108 Carbon Dioxide 22 BUN 115 H D Creatinine 5.08 H Glucose 124 H Calcium 8.7 Liver Function 04/09/17 Range/Units 04:30 Total Bilirubin 0.5 (0.2-1.2) mg/dL AST 11 (5-34) Units/L ALT 14 (0-55) Units/L Alkaline Phosphatase 49 (38-126) Units/L Albumin 2.9 L (3.5-5.0) g/dL - ABG Interpretation ABG results: PT/INR, D-dimer PT 14.9 Seconds (9.4-12.1) H 04/08/17 15:32 - Impressions Impressions Guidance Needle Placement Ultrasound 04/09/17 00:00 IMPRESSION: Successful ultrasound and fluoroscopy guided tunneled catheter placement, which may be used immediately. D/ / Radu Chavez MD / Radu Chavez MD Interpreting Provider: Radu Chavez MD Insertion Tunneled Catheter 04/09/17 00:00 IMPRESSION: Successful ultrasound and fluoroscopy guided tunneled catheter placement, which may be used immediately. D/ / Radu Chavez MD / Radu Chavez MD Interpreting Provider: Radu Chavez MD - Attending Attestation I examined this patient and my medical decision-making was reviewed with the Resident Physician on 04/09/17. I agree with the documented findings, disposition and treatment plan as described except to the extent set forth below. Mr Chery has been admitted for acute hyperkalemia and ESRD requiring urgent dialysis. He remains high risk due to potential for worsening cardiac issues. He continues to have episodes of CHB. Mr Chery is currently on dialysis. He is having some discomfort with catheter. No CP or SOB. No fever or chills. Had another episode of bradycardia. Exam Alert. Comfortable Heart reg No wheeze Abd soft Edema present I/P 1. Hyperkalemia 2. CHB 3. ESRD Further diagnoses and plan as above.
--- NOTE | 2017-04-09 15:40 | Nephrology Progress Note ---
Date of Encounter: 04/09/17 Time of Encounter: 10:50 - Assessment and Plan (1) ESRD (end stage renal disease) Current Visit: Yes Status: Acute New ESRD, secnd HD planned today with UF goal of 2-3kg decreased as tolerated s/p HD yesterday, first treatment which was well tolerated Agree with permcath today (2) Fluid overload Current Visit: Yes Status: Acute Progressively improving with continued UF with HD Qualifiers: Hypervolemia type: other Qualified Code(s): E87.79 - Other fluid overload (3) Hyperkalemia Current Visit: Yes Status: Acute Improved after first treatment, will monitor Continue renal diet (4) Anemia Current Visit: No Status: Acute Hgb low but stable at 7.1, will monitor Transfusion parameters per primary team Qualifiers: Anemia type: due to chronic kidney disease Chronic kidney disease stage: stage 5, not on chronic dialysis Qualified Code(s): N18.5 - Chronic kidney disease, stage 5; D63.1 - Anemia in chronic kidney disease; D63.1 - Anemia in chronic kidney disease Subjective Interval history: Interim events noted. Pt seen and examined receiving second HD treatment via temp IJ line having issues with flow via line and also feeling nauseated with dropping BP readings, will decrease UF immediately (gaol of 4kg might be too much today). Objective - Vital Signs Vital signs: Vital Signs Temp Pulse Resp BP Pulse Ox 04/09/17 15:39 97.6 F 04/09/17 14:28 48 15 151/66 98 04/09/17 14:00 62 18 143/65 100 04/09/17 12:15 97.7 F 16 144/66 04/09/17 12:05 121/48 04/09/17 12:00 97.9 F 57 18 106/63 97 04/09/17 11:50 119/56 04/09/17 11:35 105/53 04/09/17 11:20 112/56 04/09/17 11:05 130/74 04/09/17 10:50 99/55 04/09/17 10:35 109/52 04/09/17 10:20 112/55 04/09/17 10:05 149/67 04/09/17 09:50 154/56 04/09/17 09:35 97.8 F 16 149/61 04/09/17 08:00 57 19 144/60 99 04/09/17 07:43 97.9 F 04/09/17 06:00 51 18 133/59 100 04/09/17 05:04 53 16 142/62 100 04/09/17 04:00 97.9 F 56 16 150/69 100 04/09/17 03:00 56 16 145/67 100 04/09/17 02:00 56 17 147/64 100 04/09/17 01:00 56 17 144/58 98 04/09/17 00:00 55 16 152/71 100 04/08/17 23:00 53 18 145/62 100 04/08/17 22:45 97.2 F L 18 132/66 04/08/17 22:10 97.9 F 55 17 137/65 100 04/08/17 22:00 126/55 04/08/17 21:45 134/68 Intake and Output 04/08/17 04/09/17 04/09/17 23:59 07:59 15:59 Intake Total 0 / 600 0 / 0 600 / 600 Output Total 4200 / 4200 400 / 400 3000 / 3000 Balance -4200 / -3600 -400 / -400 -2400 / -2400 Intake: Oral 0 / 0 0 / 0 0 / 0 Intake, Rinseback and Flushes 600 / 600 Output: Urine 600 / 600 400 / 400 400 / 400 Total Dialysis (HD) Output 3600 / 3600 2600 / 2600 Other: Weight 111.2 kg 111.2 kg Blood Glucose* 117 Hemodialysis Net Fluid Removed 3000 2000 (mL) Patient Weight 04/09/17 23:59 Weight 111.2 kg - General Appearance General appearance: Present: well-developed, well-nourished, moderate distress EENT: Present: ATNC, mucous membranes moist Neck: Present: no JVD, supple Respiratory: Present: clear Cardiology: Present: edema (LE bilat) Dialysis Vascular Access: Venous Catheter (temp IJ) Gastrointestinal: Present: no tenderness, no guarding Integumentary: Present: warm and dry Neurologic: Present: no focal deficit Musculoskeletal: Present: no deformities Psychiatric: Present: mood/affect appropriate, cooperative - Lab 04/10/17 07:47 04/10/17 07:47 Most recent lab results Calcium 8.7 mg/dL (8.6-10.8) 04/09/17 04:30 Magnesium 3.0 mg/dL (1.6-2.6) H 04/08/17 21:29 Consult Discharge Plan - Plan [facility]errals: [facility] [Primary Care Provider] -
--- NOTE | 2017-04-09 20:27 | Electrocardiograph Report ---
[address] [place], [place] [address] Test Date: 2017-04-08 Pat Name: Shawn Chery Department: 103 Room: 10 Gender: M Member Certification Manager: : [id number] Requested By: Mane Anderson Order Number: [id number] Reading MD: Brayan Medina MD Measurements Intervals [place] Rate: 35 P: DC: 0 QRS: -24 QRSD: 94 T: -3 QT: 509 QTc: 408 Interpretive Statements SINUS BRADYCARDIA WITH 2ND DEGREE AV BLOCK, MOBITZ TYPE I ([place]ACH) LOW QRS VOLTAGE IN PRECORDIAL LEADS Electronically Signed On 04-09-2017 20:25:45 EST by Brayan Medina MD
[2017-04-10] MEDS: Insulin LISPRO 300 UNITS/3 ML VIAL SQ SCH ×4 (00:32→20:35)
--- NOTE | 2017-04-10 06:43 | Pulmonology Consult Note ---
Date of Encounter: 04/10/17 Time of Encounter: 06:42 Assessment and Plan (1) Sleep-disordered breathing Current Visit: Yes Status: Acute In conclusion this is a 66-year-old gentleman with noted desaturation during sleep while on continuous pulse oximetry which resolves with the patient being awoken. I have a high pretest probability for obstructive sleep apnea contributing to nocturnal hypoxemia in concert with underlying heart failure with reduced ejection fraction and cardiogenic pulmonary edema from end-stage renal disease. Recommendation would be to attempt to qualify patient for BiPAP while in hospital which I suspect will not be successful however was he could be discharged with a positive airway pressure mask and return for BiPAP titration during polysomnogram. Otherwise he will need overnight oximetry to determine need for home-going oxygen. And ideally could be discharged to sleep lab to complete polysomnogram at the time of discharge from the hospital so there would not be any delay in his treatment While inpatient I recommend empiric positive airway pressure in the day during naps and at night during sleep. Continue supplemental oxygen to keep saturation around 90-92%. Possible adverse effects of untreated sleep apnea explained including increased risk of stroke, hypertension, headaches, and pulmonary hypertension. Advised not to drive if sleepy as untreated MARVA can cause motor vehicle accidents. He will need outpatient follow-up in sleep clinic Thank you so much for this consultation we will continue to follow (2) Morbid obesity Current Visit: Yes Status: Acute (3) Nocturnal hypoxia Current Visit: Yes Status: Acute History of Present Illness Consult date: 04/10/17 Requesting physician: Carmelo Saenz Reason for consult: obstructive sleep apnea Chief complaint: Low Oxygen History of present illness: Mr. Chery is a very pleasant 66-year-old gentleman with a past medical history of heart failure with reduced ejection fraction morbid obesity hypertension diabetes and chronic kidney disease with advancement to end-stage renal disease. Seen in nephrology clinic found to have lites threateningly high potassium and was sent to the ED for emergent dialysis. Also noted to have ECG changes and bradycardia associated with this. He was emergently dialyzed and since it has been doing relatively well. Pulmonary was consulted because the patient was noted to desat into the 50s while sleeping. Per the patient he has been told the past that he "has sleep apnea" when I asked how that was diagnosed he said the doctor asked me a few questions. He relates to me that his former told him that he snores very loudly and kept her up all night. She also noted that he would stop breathing during the night. He wakes up feeling unrefreshed and frequently dozes off and naps during the day. He has never had any accidents related to drowsiness however. He does wake up with a dry mouth frequently but denies headaches. 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) - Social History Smoking Status: Never smoker Smokeless Tobacco Status: No Alcohol use: none Drug use: none - Family History Mother Hx Family Cancer: Yes (throat [id number]) Medications and Allergies Amlodipine Besylate 10 mg PO DAILY 03/24/17 [History] Aspirin Enteric Coated [Aspirin EC] 81 mg PO DAILY 03/24/17 [History] Dorzolamide/Timolol [Cosopt] 1 drop BOTH EYES BID 03/24/17 [History] Furosemide [Lasix] 60 mg PO DAILY 03/24/17 [History] Insulin Glargine,Hum.rec.anlog [Lantus Solostar] 36 unit SQ QAM 03/24/17 [ History] Ketorolac OPTH Soln [Acular] 1 drop RIGHT EYE QID 03/24/17 [History] Metoprolol [Lopressor] 25 mg PO BID 03/24/17 [History] Potassium Chloride [Klor-Con 10] 10 meq PO DAILY 03/24/17 [History] Nitroglycerin [Nitrostat] 0.4 mg SL Q5M PRN 04/08/17 [History] 3 Allergy/AdvReac Type Severity Reaction Status Date / Time fluvastatin Allergy Difficulty Verified 03/24/17 19:24 Breathing gemfibrozil Allergy Difficulty Verified 03/24/17 19:24 Breathing lovastatin Allergy Difficulty Verified 03/24/17 19:24 Breathing Penicillins [PCN] Allergy Difficulty Verified 03/24/17 19:23 Breathing simvastatin Allergy Difficulty Verified 03/24/17 19:24 Breathing All Systems: A 10-system review of systems was performed and is negative for pertinent findings except as documented above in the HPI. Physical Examination Vital Signs: Vital Signs, Last 4 Hours Temp Pulse Resp BP Pulse Ox 04/10/17 05:01 98.0 F 04/10/17 04:50 67 16 143/67 91 General appearance: no acute distress Eyes: nonicteric ENT: oropharynx moist Mallampati (class): 4 Neck: supple Effort: normal Auscultation: bilateral: clear Cardiovascular: regular rate and rhythm Gastrointestinal: normoactive bowel sounds Integumentary: normal Extremities: no cyanosis, no clubbing, edema Musculoskeletal: no deformities normal mental status, non-focal exam mood appropriate Results - Laboratory Findings CBC and BMP: 04/10/17 07:47 04/09/17 04:30 PT/INR, D-dimer PT 14.9 Seconds (9.4-12.1) H 04/08/17 15:32 Abnormal lab findings: Abnormal lab results RBC 2.50 M/mcL (4.19-5.50) L 04/09/17 04:30 Hgb 7.1 g/dL (12.9-16.9) L 04/09/17 04:30 Hct 22.2 % (37.5-50.1) L 04/09/17 04:30 PT 14.9 Seconds (9.4-12.1) H 04/08/17 15:32 BUN 115 mg/dL (8-26) H D 04/09/17 04:30 Creatinine 5.08 mg/dL (0.72-1.25) H 04/09/17 04:30 Est GFR ( Amer) 14 (> 60) L 04/09/17 04:30 Est GFR (Non-Af Amer) 11 (> 60) L 04/09/17 04:30 Glucose 124 mg/dL (70-99) H 04/09/17 04:30 POC Glucose 126 (58-89) H 04/09/17 17:50 Calculated Osmolality 336 (280-300) H 04/09/17 04:30 Magnesium 3.0 mg/dL (1.6-2.6) H 04/08/17 21:29 B-Natriuretic Peptide 784 pg/mL (0-100) H 04/08/17 21:29 Albumin 2.9 g/dL (3.5-5.0) L 04/09/17 04:30 Albumin/Globulin Ratio 0.9 (1.1-2.2) L 04/09/17 04:30 - Diagnostic Findings Chest x-ray: report reviewed, image reviewed - Clinical Findings Intake & Output: Intake & Output 04/09/17 04/09/17 04/10/17 15:59 23:59 07:59 Intake Total 600 / 600 360 / 360 Output Total 3000 / 3000 475 / 475 Balance -2400 / -2400 -115 / -115 Weight 111.2 kg 106.3 kg Consult Discharge Plan - Plan Referrals: [facility] [Primary Care Provider] -
[2017-04-10] MEDS ORDERED: Insulin LISPRO 300 UNITS/3 ML VIAL SQ SCH ×2 (07:30→21:00)
--- NOTE | 2017-04-10 07:54 | Internal Med Progress Note ---
Date of Encounter: 04/10/17 Time of Encounter: 07:54 - Assessment and plan (1) Hyperkalemia Current Visit: Yes Status: Acute Assessment and plan: Potassium improved with dialysis but has increased somewhat again today. Plan per renal - dialysis again today. (2) Wenckebach second degree AV block Current Visit: Yes Status: Acute Assessment and plan: Continues to have episodes of bradycardia and heart block (appears to be Mobitz 2). Cardiology to review. (3) ESRD (end stage renal disease) Current Visit: Yes Status: Acute Assessment and plan: Permacath placed yesterday for chronic dialysis. Will need chair set up. (4) Atrial fibrillation Current Visit: Yes Status: Acute Assessment and plan: No tachycardic at this time. Continue to monitor. Qualifiers: Atrial fibrillation type: paroxysmal Qualified Code(s): I48.0 - Paroxysmal atrial fibrillation (5) Diabetes mellitus Current Visit: Yes Status: Chronic Assessment and plan: Pt on diet so insulin changed. Qualifiers: Diabetes mellitus type: type 2 Diabetes mellitus complication status: with kidney complications Diabetes mellitus complication detail: with chronic kidney disease Diabetes mellitus exterminator helper insulin use: with exterminator helper use Chronic kidney disease stage: on chronic dialysis Qualified Code(s): E11.22 - Type 2 diabetes mellitus with diabetic chronic kidney disease; N18.6 - End stage renal disease; N18.6 - End stage renal disease; N18.6 - End stage renal disease; N18.6 - End stage renal disease; Z79.4 - intermediate manager (current) use of insulin; Z79.4 - intermediate manager (current) use of insulin; Z79.4 - custodial (current ) use of insulin; Z79.4 - intermediate manager (current) use of insulin; Z99.2 - Dependence on renal dialysis; Z99.2 - Dependence on renal dialysis; Z99.2 - Dependence on renal dialysis; Z99.2 - Dependence on renal dialysis (6) HTN (hypertension) Current Visit: Yes Status: Chronic Assessment and plan: Chronic issue. Appears stable at this time. Qualifiers: Hypertension type: essential hypertension Qualified Code(s): I10 - Essential (primary) hypertension - Subjective Interval history: Mr Chery is currently admitted for hyperkalemia and heart block. He required emergent dialysis. He remains moderate to high risk due to potential for worsening cardiac and respiratory issues. Mr Chery is comfortable in bed. He continues to have episodes of bradycardia/ heart block but not as many. Denies pain at this time. No fever or chills. Tolerating dialysis. Had permacath placed yesterday without difficulty. - Constitutional Vitals: Temp Pulse Resp BP Pulse Ox 98.0 F 67 16 143/67 91 04/10/17 05:01 04/10/17 04:50 04/10/17 04:50 04/10/17 04:50 04/10/17 04:50 General appearance: Present: cooperative, A&O X 3, morbidly obese, pleasant, answers questions appropriately - Head Head exam: Present: atraumatic, normocephalic - Eye Eye exam: Present: EOMI, conjuntiva pink - ENT ENT exam: Present: mucous membranes moist - Respiratory Respiratory exam: Present: decreased breath sounds, rhonchi. Absent: rales, wheezes - Cardiovascular Cardiovascular exam: Present: irregular rhythm. Absent: tachycardia - GI/Abdominal GI/Abdominal exam: Present: soft. Absent: tenderness - Extremities Exam Extremities exam: Present: pedal edema, warm. Absent: tenderness - Neurological Exam Neurological exam: Present: alert, oriented X3 - Skin Skin exam: Present: dry, warm. Absent: rash Internal Medicine: Result - Labs CBC & Chem 7: 04/10/17 07:47 04/10/17 07:47 - ABG Interpretation ABG results: PT/INR, D-dimer PT 14.9 Seconds (9.4-12.1) H 04/08/17 15:32 - Impressions Impressions Guidance Needle Placement Ultrasound 04/09/17 00:00 IMPRESSION: Successful ultrasound and fluoroscopy guided tunneled catheter placement, which may be used immediately. D/ / Radu Chavez MD / Radu Cahvez MD Interpreting Provider: Radu Chavez MD Insertion Tunneled Catheter 04/09/17 00:00 IMPRESSION: Successful ultrasound and fluoroscopy guided tunneled catheter placement, which may be used immediately. D/ / Radu Chavez MD / Radu Chavez MD Interpreting Provider: Radu Chavez MD Consult Discharge Plan - Plan [facility]errals: [facility] [Primary Care Provider] -
[2017-04-10 07:58] LABS: Hematocrit 22.1 % (37.5-50.1); Hemoglobin 7.2 g/dL (12.9-16.9); Mean Corpuscular HGB Conc 32.6 g/dL (31.6-35.5); Mean Corpuscular Hemoglobin 29.3 pg (28.0-33.3); Mean Corpuscular Volume 89.8 fL (83.0-100.0); Mean Platelet Volume 11.1 fL (9.4-12.4); Platelet Count 204 K/mcL (140-400); Red Blood Count 2.46 M/mcL (4.19-5.50)
[2017-04-10 08:06] LABS: Calcium 8.5 mg/dL (8.6-10.8); Magnesium 2.5 mg/dL (1.6-2.6); Potassium 5.1 mEq/L (3.5-4.5)
[2017-04-10] MEDS ORDERED: 0.9 % Sodium Chloride 2,000 ML ONE (08:36)
[2017-04-10] MEDS: *HR* Heparin 5,000 UNIT/ML VIAL SQ SCH ×2 (08:41→16:22)
[2017-04-10] MEDS: Aspirin Enteric Coated 81 MG Tablet PO SCH (08:41)
--- NOTE | 2017-04-10 09:18 | Nephrology Progress Note ---
Date of Encounter: 04/10/17 Time of Encounter: 09:00 - Assessment and Plan (1) ESRD (end stage renal disease) Current Visit: Yes Status: Acute New ESRD, third HD planned today with UF goal of 2-3kg as tolerated s/p HD yesterday, second treatment with improved BUN at 78 from 115 Will plan outpatient HD arranegment prior to discharge (2) Fluid overload Current Visit: Yes Status: Acute Progressively improving with continued UF with HD Qualifiers: Hypervolemia type: other Qualified Code(s): E87.79 - Other fluid overload (3) Hyperkalemia Current Visit: Yes Status: Acute Slightly elevated today at 5.1, should improve with HD today Continue renal diet (4) Anemia Current Visit: No Status: Acute Hgb low but stable at 7.2, will monitor Transfusion parameters per primary team Qualifiers: Anemia type: due to chronic kidney disease Chronic kidney disease stage: stage 5, not on chronic dialysis Qualified Code(s): N18.5 - Chronic kidney disease, stage 5; D63.1 - Anemia in chronic kidney disease; D63.1 - Anemia in chronic kidney disease Subjective Interval history: Pt sen and examined s/p new permcath yesterday Objective - Vital Signs Vital signs: Vital Signs Temp Pulse Resp BP Pulse Ox 04/10/17 08:00 66 22 157/72 97 04/10/17 07:58 98.1 F 04/10/17 07:55 79 04/10/17 05:01 98.0 F 04/10/17 04:50 67 16 143/67 91 04/10/17 00:35 98.1 F 04/10/17 00:18 9 144/62 96 04/10/17 00:00 67 16 144/62 96 04/09/17 22:59 13 142/70 100 04/09/17 21:05 98.2 F 04/09/17 20:40 50 16 123/65 98 04/09/17 18:00 64 20 144/62 100 04/09/17 17:04 97.6 F 71 20 140/66 100 04/09/17 15:39 97.6 F 04/09/17 14:28 48 15 151/66 98 04/09/17 14:00 62 18 143/65 100 04/09/17 12:15 97.7 F 16 144/66 04/09/17 12:05 121/48 04/09/17 12:00 97.9 F 57 18 106/63 97 04/09/17 11:50 119/56 04/09/17 11:35 105/53 04/09/17 11:20 112/56 04/09/17 11:05 130/74 04/09/17 10:50 99/55 04/09/17 10:35 109/52 04/09/17 10:20 112/55 04/09/17 10:05 149/67 04/09/17 09:50 154/56 04/09/17 09:35 97.8 F 16 149/61 Intake and Output 04/09/17 04/10/17 04/10/17 23:59 07:59 15:59 Intake Total 360 / 360 Output Total 475 / 475 350 / 350 Balance -115 / -115 -350 / -350 Intake: Oral 360 / 360 Output: Urine 475 / 475 350 / 350 Other: Meal dinner Percent of Meal Consumed 100% Weight 106.3 kg Blood Glucose* 126 Patient Weight 04/10/17 23:59 Weight 106.3 kg - General Appearance General appearance: Present: well-developed, well-nourished EENT: Present: ATNC, mucous membranes moist Neck: Present: no JVD, supple Additional Comments: good areation ant bilat Cardiology: Present: edema (LE, improved bilat), normal S1, normal S2 Dialysis Vascular Access: Venous Catheter Gastrointestinal: Present: no tenderness, no guarding Integumentary: Present: warm and dry Neurologic: Present: no focal deficit Musculoskeletal: Present: no deformities Psychiatric: Present: mood/affect appropriate, cooperative - Lab 04/10/17 07:47 04/10/17 07:47 Most recent lab results Calcium 8.5 mg/dL (8.6-10.8) L 04/10/17 07:47 Magnesium 2.5 mg/dL (1.6-2.6) 04/10/17 07:47 Consult Discharge Plan - Plan [facility]errals: [facility] [Primary Care Provider] -
[2017-04-10] MEDS ORDERED: *HR* Heparin 10,000 UNIT/10 ML VIAL IV PRN (09:23)
[2017-04-10] MEDS ORDERED: 0.9 % Sodium Chloride 250 ML IVC PRN ×2 (09:23→11:30)
[2017-04-10] MEDS ORDERED: Ferumoxytol 510 MG in 0.9 % Sodium Chloride 100 ML IVPB ONE (09:29)
[2017-04-10] MEDS ORDERED: 0.9 % Sodium Chloride 1,000 ML PRIME SCH (09:30)
[2017-04-10] MEDS ORDERED: D5% in Water 1,000 ML IVC PRN (11:30)
[2017-04-10] MEDS ORDERED: *HR* Dextrose 50 % in Water (Syg) 50 ML SYRINGE IVP PRN (11:30)
[2017-04-10] MEDS ORDERED: Ondansetron 4 MG/2 ML VIAL IVP PRN (11:30)
[2017-04-10] MEDS ORDERED: Dextrose Gel 15 GM PO PRN ×2 (11:30)
[2017-04-10] MEDS ORDERED: Naloxone 0.4 MG/ML INJ IVP PRN (11:30)
[2017-04-11] MEDS: *HR* Heparin 5,000 UNIT/ML VIAL SQ SCH ×3 (00:36→16:45)
[2017-04-11 02:58] LABS: Hematocrit 22.5 % (37.5-50.1); Hemoglobin 6.9 g/dL (12.9-16.9); Mean Corpuscular HGB Conc 30.7 g/dL (31.6-35.5); Mean Corpuscular Hemoglobin 27.9 pg (28.0-33.3); Mean Corpuscular Volume 91.1 fL (83.0-100.0); Mean Platelet Volume 11.2 fL (9.4-12.4); Platelet Count 188 K/mcL (140-400); Red Blood Count 2.47 M/mcL (4.19-5.50); Red Cell Distribution Width 13.7 % (11.5-14.5)
[2017-04-11 03:11] LABS: Calcium 8.6 mg/dL (8.6-10.8)
[2017-04-11 03:13] LABS: Potassium 4.4 mEq/L (3.5-4.5)
[2017-04-11] MEDS: Aspirin Enteric Coated 81 MG Tablet PO SCH (07:59)
[2017-04-11] MEDS: Insulin LISPRO 300 UNITS/3 ML VIAL SQ SCH ×4 (07:59→20:38)
--- NOTE | 2017-04-11 08:01 | Internal Med Progress Note ---
Date of Encounter: 04/11/17 Time of Encounter: 08:01 - Assessment and plan (1) Hyperkalemia Current Visit: Yes Status: Resolved Assessment and plan: Improved with starting dialysis. (2) Wenckebach second degree AV block Current Visit: Yes Status: Acute Assessment and plan: Continues to have episodes of bradycardia. Hemodynamically stable. Will ask for official cardiology evaluation. (3) ESRD (end stage renal disease) Current Visit: Yes Status: Acute Assessment and plan: Permacath placed yesterday for chronic dialysis. Will need chair set up. (4) Atrial fibrillation Current Visit: Yes Status: Acute Assessment and plan: No a fib at this time. Qualifiers: Atrial fibrillation type: paroxysmal Qualified Code(s): I48.0 - Paroxysmal atrial fibrillation (5) Diabetes mellitus Current Visit: Yes Status: Chronic Assessment and plan: Pt on diet so insulin changed. Qualifiers: Diabetes mellitus type: type 2 Diabetes mellitus complication status: with kidney complications Diabetes mellitus complication detail: with chronic kidney disease Diabetes mellitus watermelon inspector insulin use: with watermelon inspector use Chronic kidney disease stage: on chronic dialysis Qualified Code(s): E11.22 - Type 2 diabetes mellitus with diabetic chronic kidney disease; N18.6 - End stage renal disease; N18.6 - End stage renal disease; N18.6 - End stage renal disease; N18.6 - End stage renal disease; Z79.4 - roasterman (current) use of insulin; Z79.4 - roasterman (current) use of insulin; Z79.4 - penitentiary (current ) use of insulin; Z79.4 - roasterman (current) use of insulin; Z99.2 - Dependence on renal dialysis; Z99.2 - Dependence on renal dialysis; Z99.2 - Dependence on renal dialysis; Z99.2 - Dependence on renal dialysis (6) HTN (hypertension) Current Visit: Yes Status: Chronic Assessment and plan: Chronic issue. Appears stable at this time. Qualifiers: Hypertension type: essential hypertension Qualified Code(s): I10 - Essential (primary) hypertension - Subjective Interval history: Mr Chery is currently admitted for hyperkalemia and heart block. He required emergent dialysis. He remains moderate to high risk due to potential for worsening cardiac and respiratory issues. Mr Chery wore bipap all night but is hypoxic now as he is napping off bipap. No issues when awake. Heart rate still fluctuating and at times is in 40s. BP good. No fever or chills. No CP or SOB at this time. Bowels OK. He says he feels weak overall and is worried that. - Constitutional Vitals: Temp Pulse Resp BP Pulse Ox 98.4 F 73 16 144/68 97 04/11/17 07:23 04/11/17 07:23 04/11/17 07:23 04/11/17 07:23 04/11/17 07:23 General appearance: Present: cooperative, A&O X 3, morbidly obese, pleasant, answers questions appropriately - Head Head exam: Present: normocephalic - Eye Eye exam: Present: EOMI, conjuntiva pink - ENT ENT exam: Present: mucous membranes moist - Respiratory Respiratory exam: Present: decreased breath sounds, CTAB. Absent: rales, rhonchi, wheezes - Cardiovascular Cardiovascular exam: Present: bradycardia, irregular rhythm, systolic murmur - GI/Abdominal GI/Abdominal exam: Present: normal bowel sounds, soft. Absent: tenderness - Extremities Exam Extremities exam: Present: warm. Absent: tenderness (Edema noted and appears to be less than yesterday.) - Neurological Exam Neurological exam: Present: alert, oriented X3 - Skin Skin exam: Present: dry, warm. Absent: rash Internal Medicine: Result - Labs CBC & Chem 7: 04/11/17 02:37 04/11/17 02:37 Labs: Short CBC 04/10/17 04/11/17 Range/Units 07:47 02:37 WBC 8.4 8.1 (4.3-11.1) K/mcL Hgb 7.2 L 6.9 L (12.9-16.9) g/dL Hct 22.1 L 22.5 L (37.5-50.1) % Plt Count 204 188 (140-400) K/mcL BMP 04/10/17 04/11/17 07:47 02:37 Sodium 142 139 Potassium 5.1 H 4.4 Chloride 105 103 Carbon Dioxide 28 29 BUN 78 H D 42 H D Creatinine 4.05 H 3.32 H Glucose 256 H 215 H Calcium 8.5 L 8.6 - ABG Interpretation ABG results: PT/INR, D-dimer PT 14.9 Seconds (9.4-12.1) H 04/08/17 15:32 Consult Discharge Plan - Plan [facility]errals: [facility] [Primary Care Provider] -
[2017-04-11] MEDS: Dorzolamide/Timolol OPTH 10 ML BOTTLE BOTH EYES SCH ×2 (09:01→20:38)
[2017-04-11] MEDS: Ketorolac OPTH Soln 5 ML BOTTLE RIGHT EYE SCH ×4 (09:01→20:38)
[2017-04-11] MEDS ORDERED: 0.9 % Sodium Chloride 250 ML ONE (09:33)
--- NOTE | 2017-04-11 13:05 | Nephrology Progress Note ---
Date of Encounter: 04/11/17 Time of Encounter: 12:30 - Assessment and Plan (1) ESRD (end stage renal disease) Current Visit: Yes Status: Acute New ESRD, s/p 3 consecutive HD sessions s/p HD yesterday, next HD planned tomorrow Outpatient HD planning to be arranged tomorrow (2) Fluid overload Current Visit: Yes Status: Acute Progressively improving with continued UF with HD Qualifiers: Hypervolemia type: other Qualified Code(s): E87.79 - Other fluid overload (3) Hyperkalemia Current Visit: Yes Status: Resolved Resolved, will monitor Continue renal diet (4) Anemia Current Visit: No Status: Acute Hgb low at 6.9 s/p feraheme yesterday Transfusion parameters per primary team Qualifiers: Anemia type: due to chronic kidney disease Chronic kidney disease stage: stage 5, not on chronic dialysis Qualified Code(s): N18.5 - Chronic kidney disease, stage 5; D63.1 - Anemia in chronic kidney disease; D63.1 - Anemia in chronic kidney disease Subjective Interval history: Pt seen and examined on cPAP and receiving transfusion pRBCs. No new complaints Objective - Vital Signs Vital signs: Vital Signs Temp Pulse Resp BP Pulse Ox 04/11/17 12:06 57 16 162/95 98 04/11/17 10:18 97.5 F L 60 18 145/67 04/11/17 10:03 98.4 F 72 20 133/62 100 04/11/17 07:23 98.4 F 73 16 144/68 97 04/11/17 04:24 98.7 F 69 16 145/63 100 04/11/17 04:13 55 04/11/17 00:46 70 04/10/17 23:57 97.8 F 74 14 133/51 99 04/10/17 20:39 73 04/10/17 19:58 98.6 F 61 16 137/64 100 04/10/17 14:44 98.2 F 73 20 129/97 93 04/10/17 14:00 80 20 156/79 98 04/10/17 13:43 98.0 F 18 173/67 04/10/17 13:30 134/67 04/10/17 13:15 112/56 Intake and Output 04/10/17 04/11/17 04/11/17 23:59 07:59 15:59 Intake Total 0 / 0 120 / 120 Output Total 250 / 250 Balance 0 / 0 -250 / -250 120 / 120 Intake: Oral 0 / 0 120 / 120 Blood Product 0 / 0 Rbcs Leuko Poor As-1 Unit 0 / 0 [id number] Output: Urine 250 / 250 Other: Meal Dinner Percent of Meal Consumed 100% Blood Glucose* 242 230 215 - Lab 04/11/17 02:37 04/11/17 02:37 Most recent lab results Calcium 8.6 mg/dL (8.6-10.8) 04/11/17 02:37 Magnesium 2.5 mg/dL (1.6-2.6) 04/10/17 07:47 Consult Discharge Plan - Plan [facility]errals: [facility] [Primary Care Provider] -
[2017-04-11 14:44] LABS: Hematocrit 28.6 % (37.5-50.1); Hemoglobin 9.2 g/dL (12.9-16.9)
[2017-04-12 03:55] LABS: Hematocrit 26.8 % (37.5-50.1); Hemoglobin 8.6 g/dL (12.9-16.9); Mean Corpuscular HGB Conc 32.1 g/dL (31.6-35.5); Mean Corpuscular Hemoglobin 28.5 pg (28.0-33.3); Mean Corpuscular Volume 88.7 fL (83.0-100.0); Mean Platelet Volume 11.4 fL (9.4-12.4); Platelet Count 138 K/mcL (140-400); Red Blood Count 3.02 M/mcL (4.19-5.50); Red Cell Distribution Width 14.2 % (11.5-14.5)
[2017-04-12] MEDS: *HR* Heparin 5,000 UNIT/ML VIAL SQ SCH ×3 (04:06→14:52)
[2017-04-12 04:08] LABS: Calcium 8.4 mg/dL (8.6-10.8); Potassium 4.9 mEq/L (3.5-4.5)
[2017-04-12] MEDS: Dorzolamide/Timolol OPTH 10 ML BOTTLE BOTH EYES SCH ×2 (08:23→21:13)
[2017-04-12] MEDS: Ketorolac OPTH Soln 5 ML BOTTLE RIGHT EYE SCH ×4 (08:23→21:13)
[2017-04-12] MEDS: Aspirin Enteric Coated 81 MG Tablet PO SCH (08:25)
[2017-04-12] MEDS: Insulin LISPRO 300 UNITS/3 ML VIAL SQ SCH ×4 (08:25→21:12)
[2017-04-12] MEDS ORDERED: 0.9 % Sodium Chloride 250 ML IVC PRN (09:02)
[2017-04-12] MEDS ORDERED: 0.9 % Sodium Chloride 1,000 ML PRIME SCH (09:15)
--- NOTE | 2017-04-12 09:17 | Electrophysiology Consult Note ---
<Alonso Kay - Last Filed: 04/12/17 15:44> Date of Encounter: 04/12/17 Time of Encounter: 09:09 Assessment and Plan (1) Wenckebach second degree AV block Current Visit: Yes Status: Acute Second Degree AV block seen in the setting of ESRD with hyperkalemia newly on dialysis. Continues to have persistent AV block. Reported to have CHB also. No CHB seen on my evaluation. C/o continued fatigue and feeling weak. 24 hour telemetry review shows AVg HR 65 bpm SR with second degree type one AV block. Minimum HR 37 bpm at 1:30 pm. No significant pauses. Noted patient documented to have afib. No evidence of afib seen. One ekg reported as afib on 04/01/17 is actually sinus bradycardia 2nd degree type I AV block. Patient denies history of afib. K 6.4 on admit and now 4.9. Intermittently normal and second degree AV block persists. TTE completed 03/2017 showed preserved LV function. No significant valvular disease. Check TSH. Patient with symptomatic wenckebach. Discussed with Dr. Gerard Kimbrough- plan for PPM placement in AM. Discussed with patient who agrees with plan. Discussion w patient/family: The assessment and plan as outlined above was discussed with the patient and/or family members who expressed understanding and agreement. All questions were answered. Thank you for involving us in the care of your patient. Please call with any questions. History of Present Illness Consult date: 04/12/17 Requesting physician: Carmelo Saenz Consult reason: AV block Chief complaint: Fatigue, weakness History of present illness: Mr. Chery is a 66 year old male with a history of worsening CKD, HTN, HLD, and DM type II who presents with the c/o fatigue and weakness. He was found to have ESRD and underwent emergent dialysis. His potassium was initially 6.4. he was hospitalized two weeks prior for SAHIL but left AMA. He was seen to have a second degree mobitz type I AV block (Wenckebach) secondary to hyperkalemia. Despite starting dialysis patient continues to have persistent second degree type I block and HR as low as 37 BPM during daytime hours. Potassium improved. He states his fatigue improved with dialysis. Denies chest pain or palpitations. Denies dizziness or syncope. Denies history of CAD or arrhythmias. During last hospital stay TTE completed showed LVEF 55-60%. Mild concentric left ventricular hypertrophy. Indeterminate diastolic function. Moderate pulmonary hypertension. No significant valvular dysfunction. Past Med Surg Social Fam HX - Past Medical History Attestation: Yes The following information was validated with the patient. 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) - Social History Smoking Status: Never smoker Smokeless Tobacco Status: No Alcohol use: none Drug use: none - Family History Mother Hx Family Cancer: Yes (throat [id number]) Medications and Allergies Amlodipine Besylate 10 mg PO DAILY 03/24/17 [History] Aspirin Enteric Coated [Aspirin EC] 81 mg PO DAILY 03/24/17 [History] Dorzolamide/Timolol [Cosopt] 1 drop BOTH EYES BID 03/24/17 [History] Furosemide [Lasix] 60 mg PO DAILY 03/24/17 [History] Insulin Glargine,Hum.rec.anlog [Lantus Solostar] 36 unit SQ QAM 03/24/17 [ History] Ketorolac OPTH Soln [Acular] 1 drop LEFT EYE BID 03/24/17 [History] Metoprolol [Lopressor] 25 mg PO BID 03/24/17 [History] Potassium Chloride [Klor-Con 10] 10 meq PO DAILY 03/24/17 [History] Nitroglycerin [Nitrostat] 0.4 mg SL Q5M PRN 04/08/17 [History] 3 Allergy/AdvReac Type Severity Reaction Status Date / Time fluvastatin Allergy Difficulty Verified 03/24/17 19:24 Breathing gemfibrozil Allergy Difficulty Verified 03/24/17 19:24 Breathing lovastatin Allergy Difficulty Verified 03/24/17 19:24 Breathing Penicillins [PCN] Allergy Difficulty Verified 03/24/17 19:23 Breathing simvastatin Allergy Difficulty Verified 03/24/17 19:24 Breathing All Systems Review: A 10-system review of systems was performed and is negative for pertinent findings except as documented above in the HPI. Physical Examination Vital Signs, Last 4 Hours Temp Pulse Resp BP Pulse Ox 04/12/17 08:30 98.3 F 60 17 122/56 93 04/12/17 07:05 98.3 F 60 17 122/56 93 General: Conversant, No Apparent Distress HEENT: Atraumatic, Normocephaly, Mucus Membranes Moist Neck: No JVD, Normal carotid pulses Cardiac: Other (irregular) Lungs: Normal Breath Sounds, No Wheeze, Rales, Rhonchi Neuro: Alert and responsive, No focal deficits noted Abdomen: Soft, Non-Tender Skin: No rashes noted on visualized skin Musculoskeletal: No Chest Wall Tenderness Extremities: No Clubbing, No Cyanosis, Normal Pulses, Other (2+ ankle edema) Results 04/12/17 03:32 04/12/17 03:32 Lab Results 04/11/17 04/12/17 04/12/17 14:35 03:32 03:32 WBC 8.1 Hgb 9.2 L D 8.6 L Hct 28.6 L 26.8 L Plt Count 138 L Sodium 139 Potassium 4.9 H Chloride 104 Carbon Dioxide 26 BUN 53 H D Creatinine 3.70 H Glucose 270 H Calcium 8.4 L - Imaging and Cardiology Echo: report reviewed - EKG Interpretation EKG results cardiology: personally reviewed Consult Discharge Plan - Plan Referrals: [facility] [Other] (OFFICE WILL CALL PATIENT AT HOME WITH A FOLLOW UP APPOINTMENT) [place] [Primary Care Provider] - 04/16/17 12:15 pm <Gerard Kimbrough - Last Filed: 04/13/17 12:33> Date of Encounter: 04/13/17 - Attending Attestation I have personally performed a face to face evaluation on this patient. I have reviewed and agree with the care plan. History and Exam by me shows: Intermittent AV block. Appears to be persistnet AV block. Lowest heart rate 37 BPM, does appear to be symptomatic. Discussed risks and benefits of pacemaker and he agrees to proceed. Assessment and Plan Discussion w patient/family: The assessment and plan as outlined above was discussed with the patient and/or family members who expressed understanding and agreement. All questions were answered. Thank you for involving us in the care of your patient. Please call with any questions. History of Present Illness History of present illness: Mr. Chery is a 66 year old male All Systems Review: A 10-system review of systems was performed and is negative for pertinent findings except as documented above in the HPI. Physical Examination Vital Signs, Last 4 Hours Temp Pulse Resp BP Pulse Ox 04/13/17 11:31 97.9 F 66 16 124/63 100 Results 04/13/17 06:22 04/13/17 06:22 Lab Results 04/13/17 04/13/17 06:22 06:22 WBC 8.1 Hgb 8.8 L Hct 28.2 L Plt Count 224 D Sodium 136 Potassium 4.3 Chloride 98 Carbon Dioxide 31 H BUN 33 H D Creatinine 3.53 H Glucose 350 H Calcium 9.1
[2017-04-12 10:02] LABS: Thyroid Stimulating Hormone 4.127 mcIU/mL (0.350-4.840)
[2017-04-12] MEDS ORDERED: 0.9 % Sodium Chloride 2,000 ML ONE (12:27)
--- NOTE | 2017-04-12 12:48 | Nephrology Progress Note ---
Date of Encounter: 04/12/17 Time of Encounter: 11:00 - Assessment and Plan (1) ESRD (end stage renal disease) Current Visit: Yes Status: Acute New ESRD, s/p 3 consecutive HD sessions s/p HD yesterday, next HD planned tomorrow Outpatient HD planning to be arranged tomorrow (2) Fluid overload Current Visit: Yes Status: Acute Progressively improving with continued UF with HD Qualifiers: Hypervolemia type: other Qualified Code(s): E87.79 - Other fluid overload (3) Hyperkalemia Current Visit: Yes Status: Resolved Resolved, will monitor Continue renal diet (4) Anemia Current Visit: No Status: Acute Hgb low at 6.9 s/p feraheme yesterday Transfusion parameters per primary team Qualifiers: Anemia type: due to chronic kidney disease Chronic kidney disease stage: stage 5, not on chronic dialysis Qualified Code(s): N18.5 - Chronic kidney disease, stage 5; D63.1 - Anemia in chronic kidney disease; D63.1 - Anemia in chronic kidney disease Subjective Interval history: Pt seen and examined on HD with no new complaints Objective - Vital Signs Vital signs: Vital Signs Temp Pulse Resp BP Pulse Ox 04/12/17 12:30 146/64 04/12/17 12:15 138/65 04/12/17 12:00 153/80 04/12/17 11:45 134/73 04/12/17 11:30 141/63 04/12/17 11:15 130/68 04/12/17 11:00 132/66 04/12/17 10:45 134/62 04/12/17 10:30 143/67 04/12/17 10:15 147/59 04/12/17 10:00 151/61 04/12/17 09:45 98.5 F 20 144/59 04/12/17 08:30 98.3 F 60 17 122/56 93 04/12/17 07:05 98.3 F 60 17 122/56 93 04/12/17 04:13 97.9 F 74 18 126/61 94 04/12/17 00:00 98 F 62 16 121/52 99 04/11/17 22:52 16 137/61 97 04/11/17 19:02 97.8 F 66 12 137/61 99 04/11/17 17:45 60 138/61 04/11/17 17:29 66 175/74 04/11/17 17:09 63 18 180/84 97 04/11/17 16:28 98.0 F 59 16 182/71 94 04/11/17 13:26 98.2 F 67 18 138/64 98 Intake and Output 04/11/17 04/12/17 04/12/17 23:59 07:59 15:59 Intake Total 240 / 240 600 / 600 Output Total 300 / 300 0 / 0 Balance 240 / 240 -300 / -300 600 / 600 Intake: Oral 240 / 240 0 / 0 Intake, Rinseback and Flushes 600 / 600 Output: Urine 300 / 300 0 / 0 Other: Meal Dinner npo Percent of Meal Consumed 100% 0% Weight 107.1 kg 107.1 kg Blood Glucose* 303 263 127 Hemodialysis Net Fluid Removed 2834 (mL) Patient Weight 04/12/17 23:59 Weight 107.1 kg - Lab 04/12/17 03:32 04/12/17 03:32 Most recent lab results Calcium 8.4 mg/dL (8.6-10.8) L 04/12/17 03:32 Magnesium 2.5 mg/dL (1.6-2.6) 04/10/17 07:47 Consult Discharge Plan - Plan Referrals: [facility] [Other] (OFFICE WILL CALL PATIENT AT HOME WITH A FOLLOW UP APPOINTMENT) [facility] [Primary [facility]] - 04/16/17 12:15 pm
--- NOTE | 2017-04-12 13:29 | Internal Med Progress Note ---
<Yolis Argueta - Last Filed: 04/12/17 16:27> Date of Encounter: 04/12/17 Time of Encounter: 13:27 - Assessment and plan (1) Wenckebach second degree AV block Current Visit: Yes Status: Acute Assessment and plan: continues to have persistent AV block. came in with symptomatic second degree Wencheback. patient denies history of Afib 03/25/17 echo shows LVEF 55-60%, mild LVH, indeterminate diastolic funciton, moderate pulmonary HTN, no significant valvular dysfunction. TSH within normal limits. Plan: hold AV latha blockers. NPO after midnight pacemaker placement tomorrow per electrophysiology (2) Hyperkalemia Current Visit: Yes Status: Resolved Assessment and plan: improving (3) ESRD (end stage renal disease) Current Visit: Yes Status: Acute Assessment and plan: New EsRD patient. Appreciate nephro recs. outpatient HD planned per nephro. Plan: continue with dialysis (4) Anemia Current Visit: No Status: Acute Assessment and plan: S/p transfusion of 1 unit during this hospitalization. : B12 255, folate 8.7, low iron Plan: will monitor H/H start folate supplement epo during dialysis per nephro Qualifiers: Anemia type: due to chronic kidney disease Chronic kidney disease stage: stage 5, not on chronic dialysis Qualified Code(s): N18.5 - Chronic kidney disease, stage 5; D63.1 - Anemia in chronic kidney disease; D63.1 - Anemia in chronic kidney disease; Z99.2 - Dependence on renal dialysis; Z99.2 - Dependence on renal dialysis; Z99.2 - Dependence on renal dialysis; Z99.2 - Dependence on renal dialysis (5) Diabetes mellitus Current Visit: Yes Status: Chronic Assessment and plan: continue sliding scale insulin. ACHS accuchecks. Qualifiers: Diabetes mellitus type: type 2 Diabetes mellitus complication status: with kidney complications Diabetes mellitus complication detail: with chronic kidney disease Diabetes mellitus ad terminal makeup operator insulin use: with ad terminal makeup operator use Chronic kidney disease stage: on chronic dialysis Qualified Code(s): E11.22 - Type 2 diabetes mellitus with diabetic chronic kidney disease; N18.6 - End stage renal disease; Z99.2 - Dependence on renal dialysis; Z99.2 - Dependence on renal dialysis; Z99.2 - Dependence on renal dialysis; N18.6 - End stage renal disease; N18.6 - End stage renal disease; N18.6 - End stage renal disease ; Z79.4 - alf (current) use of insulin; Z79.4 - rodent exterminator (current) use of insulin; Z79.4 - rodent exterminator (current) use of insulin; Z79.4 - alf ( current) use of insulin; Z99.2 - Dependence on renal dialysis (6) HTN (hypertension) Current Visit: Yes Status: Chronic Assessment and plan: currently holding AV latha blockers because of 2nd degree AV block. patient has PRN hydralazine. blood pressures well controlled at this time. Qualifiers: Hypertension type: essential hypertension Qualified Code(s): I10 - Essential (primary) hypertension (7) DVT prophylaxis Current Visit: Yes Status: Acute Assessment and plan: heparin SQ - Subjective Interval history: 66M evaluated during dialysis. patient denies nausea, vomiting, diarrhea, fever. he admits to chills. he denies shortness of breath, chest pain. denies any further problems today. - Constitutional Vitals: Temp Pulse Resp BP Pulse Ox 98.5 F 60 20 146/64 93 04/12/17 09:45 04/12/17 08:30 04/12/17 09:45 04/12/17 12:30 04/12/17 08:30 General appearance: Present: cooperative, A&O X 3, pleasant, no acute distress, answers questions appropriately - Head Head exam: Present: atraumatic, normocephalic - Neck Neck exam general surgery: Present: supple, trachea midline - Respiratory Respiratory exam: Present: CTAB - Cardiovascular Additional comments: bradycardic - GI/Abdominal GI/Abdominal exam: Present: normal bowel sounds, soft. Absent: distended, tenderness - Extremities Exam Extremities exam: Present: pedal edema (+2 bilateral lower extremity pitting edema. ). Absent: cyanotic - Neurological Exam Neurological exam: Present: alert, oriented X3, no focal deficits - Psychiatric Psychiatric exam: Present: normal affect, normal mood - Skin Skin exam: Present: intact Internal Medicine: Result - Labs CBC & Chem 7: 04/12/17 03:32 04/12/17 03:32 Labs: Short CBC 04/11/17 04/12/17 Range/Units 14:35 03:32 WBC 8.1 (4.3-11.1) K/mcL Hgb 9.2 L D 8.6 L (12.9-16.9) g/dL Hct 28.6 L 26.8 L (37.5-50.1) % Plt Count 138 L (140-400) K/mcL BMP 04/12/17 03:32 Sodium 139 Potassium 4.9 H Chloride 104 Carbon Dioxide 26 BUN 53 H D Creatinine 3.70 H Glucose 270 H Calcium 8.4 L - ABG Interpretation ABG results: PT/INR, D-dimer PT 14.9 Seconds (9.4-12.1) H 04/08/17 15:32 Consult Discharge Plan - Plan Referrals: [facility] [Other] (OFFICE WILL CALL PATIENT AT HOME WITH A FOLLOW UP APPOINTMENT) [facility] [Primary Care Provider[facility] - 04/16/17 12:15 pm <Carmelo Saenz - Last Filed: 04/12/17 17:21> Date of Encounter: 04/12/17 - Assessment and plan (1) Diabetes mellitus Current Visit: Yes Status: Chronic Qualifiers: Diabetes mellitus type: type 2 Diabetes mellitus complication status: with kidney complications Diabetes mellitus complication detail: with chronic kidney disease Diabetes mellitus ad terminal makeup operator insulin use: with ad terminal makeup operator use Chronic kidney disease stage: on chronic dialysis Qualified Code(s): E11.22 - Type 2 diabetes mellitus with diabetic chronic kidney disease; N18.6 - End stage renal disease; Z99.2 - Dependence on renal dialysis; Z99.2 - Dependence on renal dialysis; Z99.2 - Dependence on renal dialysis; N18.6 - End stage renal disease; N18.6 - End stage renal disease; N18.6 - End stage renal disease ; Z79.4 - rodent exterminator (current) use of insulin; Z79.4 - rodent exterminator (current) use of insulin; Z79.4 - rodent exterminator (current) use of insulin; Z79.4 - alf ( current) use of insulin; Z99.2 - Dependence on renal dialysis (2) Hyperkalemia Current Visit: Yes Status: Resolved (3) Wenckebach second degree AV block Current Visit: Yes Status: Acute (4) ESRD (end stage renal disease) Current Visit: Yes Status: Acute (5) HTN (hypertension) Current Visit: Yes Status: Chronic Qualifiers: Hypertension type: essential hypertension Qualified Code(s): I10 - Essential (primary) hypertension (6) Anemia Current Visit: No Status: Acute Qualifiers: Anemia type: due to chronic kidney disease Chronic kidney disease stage: on chronic dialysis Qualified Code(s): N18.6 - End stage renal disease; D63.1 - Anemia in chronic kidney disease; D63.1 - Anemia in chronic kidney disease; Z99.2 - Dependence on renal dialysis; Z99.2 - Dependence on renal dialysis; Z99.2 - Dependence on renal dialysis; Z99.2 - Dependence on renal dialysis (7) MARVA (obstructive sleep apnea) Current Visit: Yes Status: Suspected Assessment and plan: Bipap study ordered - Constitutional Vitals: Temp Pulse Resp BP Pulse Ox 98.4 F 68 16 132/62 95 04/12/17 16:24 04/12/17 16:24 04/12/17 16:24 04/12/17 16:24 04/12/17 16:24 Internal Medicine: Result - Labs CBC & Chem 7: 04/12/17 03:32 04/12/17 03:32 Labs: Short CBC 04/12/17 Range/Units 03:32 WBC 8.1 (4.3-11.1) K/mcL Hgb 8.6 L (12.9-16.9) g/dL Hct 26.8 L (37.5-50.1) % Plt Count 138 L (140-400) K/mcL BMP 04/12/17 03:32 Sodium 139 Potassium 4.9 H Chloride 104 Carbon Dioxide 26 BUN 53 H D Creatinine 3.70 H Glucose 270 H Calcium 8.4 L - ABG Interpretation ABG results: PT/INR, D-dimer PT 14.9 Seconds (9.4-12.1) H 04/08/17 15:32 - Attending Attestation I examined this patient and my medical decision-making was reviewed with the Resident Physician on 04/12/17. I agree with the documented findings, disposition and treatment plan as described except to the extent set forth below. Mr Chery has been admitted for acute hyperkalemia, ESRD and heart block. He remains moderate to high risk due to potential for worsening cardiac and respiratory status. Mr Chery has dialysis today. No fever or chills. He denies new issues. Continues to have episodes of Wenkebach and/or CHB. BP remains stable. Exam Alert. Comfortable Mucus membranes dry Heart irreg Lungs clear at this time Abd soft I/P 1. hyperkalemia resolved 2. ESRD 3. Heart block - pacer tomorrow Will request dialysis chair Further diagnoses and plan as above.
[2017-04-13] MEDS: *HR* Heparin 5,000 UNIT/ML VIAL SQ SCH ×3 (00:01→15:59)
[2017-04-13] MEDS ORDERED: Ketorolac OPTH Soln 5 ML BOTTLE LEFT EYE SCH (04:00)
[2017-04-13 05:04] LABS: ABG Base Excess 9 mEq/L (-2 to 3); ABG HCO3 34 mEq/L (21-27); ABG Oxygen Saturation 98 % (95-98); ABG PCO2 50 mmHg (35-45); ABG PH 7.44 pH Units (7.32-7.45); ABG PO2 98 mmHg (85-104); ABG TCO2 35 mEq/L (20-26)
[2017-04-13 06:51] LABS: Basophils % 0.5 %; Eosinophils # 0.3 K/mcL (0.0-0.6); Eosinophils % 3.6 %; Hematocrit 28.2 % (37.5-50.1); Hemoglobin 8.8 g/dL (12.9-16.9); Immature Granulocytes % 0.4 % (0-4); Lymphocytes % 12.5 %; Mean Corpuscular HGB Conc 31.2 g/dL (31.6-35.5); Mean Corpuscular Hemoglobin 27.8 pg (28.0-33.3); Mean Corpuscular Volume 89.2 fL (83.0-100.0); Monocytes # 0.9 K/mcL (0.0-1.3); Monocytes % 10.7 %; Neutrophils # 5.9 K/mcL (1.6-8.9); Platelet Count 224 K/mcL (140-400); Red Blood Count 3.16 M/mcL (4.19-5.50); Red Cell Distribution Width 13.7 % (11.5-14.5); Segmented Neutrophils % 72.3 %
[2017-04-13 06:57] LABS: Calcium 9.1 mg/dL (8.6-10.8); Potassium 4.3 mEq/L (3.5-4.5)
[2017-04-13] MEDS: Aspirin Enteric Coated 81 MG Tablet PO SCH (07:53)
[2017-04-13] MEDS: Folic Acid 1 MG TABLET PO SCH (07:53)
[2017-04-13] MEDS: Ketorolac OPTH Soln 5 ML BOTTLE LEFT EYE SCH ×2 (07:59→21:59)
[2017-04-13] MEDS: Dorzolamide/Timolol OPTH 10 ML BOTTLE BOTH EYES SCH ×2 (07:59→21:58)
[2017-04-13] MEDS: Insulin LISPRO 300 UNITS/3 ML VIAL SQ SCH ×4 (08:00→21:59)
--- NOTE | 2017-04-13 08:16 | Event Note ---
Date of Encounter: 04/13/17 Time of Encounter: 08:05 - Cardiology Event Note NPO for possible PPM today. Patient states that he talked with his family yesterday and would like to discuss further with Dr. Kimbrough prior to proceeding. He is hesitant to proceed at this point. R/B/A of PPM reviewed. Patient continues to have persistent second degree type I AV block. HR 47 bpm while patient sitting in chair. Continues to have fatigue. Denies dizziness or lightheadedness.
[2017-04-13] MEDS ORDERED: Clindamycin 900 MG/50 ML 900 MG/50 ML IV.SOLN IVPB ONE (09:07)
--- NOTE | 2017-04-13 13:05 | Nephrology Progress Note ---
Date of Encounter: 04/13/17 Time of Encounter: 11:40 - Assessment and Plan (1) ESRD (end stage renal disease) Current Visit: Yes Status: Acute New ESRD, s/p 3 consecutive HD sessions s/p HD yesterday, next HD planned tomorrow Outpatient HD planning to be arranged (2) Fluid overload Current Visit: Yes Status: Acute Progressively improving with continued UF with HD Qualifiers: Hypervolemia type: other Qualified Code(s): E87.79 - Other fluid overload (3) Hyperkalemia Current Visit: Yes Status: Resolved Resolved, will monitor Continue renal diet (4) Anemia Current Visit: No Status: Acute Hgb low at 6.9 s/p feraheme yesterday Transfusion parameters per primary team Qualifiers: Anemia type: due to chronic kidney disease Chronic kidney disease stage: on chronic dialysis Qualified Code(s): N18.6 - End stage renal disease; D63.1 - Anemia in chronic kidney disease; D63.1 - Anemia in chronic kidney disease; Z99.2 - Dependence on renal dialysis; Z99.2 - Dependence on renal dialysis; Z99.2 - Dependence on renal dialysis; Z99.2 - Dependence on renal dialysis Subjective Interval history: Pt seen and examined with no new complaints. No t sure he wants to have pacemaker done this hospital stay, feels overwhelmed. Objective - Vital Signs Vital signs: Vital Signs Temp Pulse Resp BP Pulse Ox 04/13/17 11:31 97.9 F 66 16 124/63 100 04/13/17 08:00 98.2 F 70 16 142/66 98 04/13/17 07:14 98.2 F 70 16 142/66 98 04/13/17 03:45 98.9 F 67 16 118/66 99 04/12/17 23:47 98.9 F 57 15 107/52 100 04/12/17 23:05 100 04/12/17 21:15 65 04/12/17 20:26 98.3 F 69 13 100 04/12/17 16:24 98.4 F 68 16 132/62 95 04/12/17 16:05 98.5 F 75 18 127/61 98 04/12/17 13:36 98.5 F 22 130/56 04/12/17 13:15 138/69 Intake and Output 04/12/17 04/13/17 04/13/17 23:59 07:59 15:59 Intake Total 0 / 0 Output Total 100 / 100 0 / 0 Balance -100 / -100 0 / 0 Intake: Oral 0 / 0 Output: Urine 100 / 100 0 / 0 Other: Meal Dinner npo Percent of Meal Consumed 100% # Voids 1 Weight 103 kg Blood Glucose* 396 337 222 Patient Weight 04/13/17 23:59 Weight 103 kg - Lab 04/13/17 06:22 04/13/17 06:22 Most recent lab results ABG pH 7.44 pH Units (7.32-7.45) 04/13/17 05:01 ABG pCO2 50 mmHg (35-45) H 04/13/17 05:01 ABG pO2 98 mmHg (85-104) 04/13/17 05:01 ABG HCO3 34 mEq/L (21-27) H 04/13/17 05:01 ABG O2 Saturation 98 % (95-98) 04/13/17 05:01 Calcium 9.1 mg/dL (8.6-10.8) 04/13/17 06:22 Magnesium 2.5 mg/dL (1.6-2.6) 04/10/17 07:47 Consult Discharge Plan - Plan Referrals: [facility] [Other] (OFFICE WILL CALL PATIENT AT HOME WITH A FOLLOW UP APPOINTMENT) [facility] [Primary Care Provider] - 04/16/17 12:15 pm
--- NOTE | 2017-04-13 15:04 | Pre-Sedation Evaluation ---
Pre-sedation evaluation - Pre-sedation checklist Date of procedure: 04/09/17 Procedure: Pacemaker Recent Vitals: Last Vital Signs Temp 97.9 F 04/13/17 11:31 Pulse 66 04/13/17 11:31 Resp 16 04/13/17 11:31 BP 124/63 04/13/17 11:31 Pulse Ox 100 04/13/17 11:31 H&P (including ROS) documented in medical record: Yes Dietary Status: NPO after Midnight Airway Assessment: Patient can open mouth completely, TMJ function normal, Micrognathia (under-bite, receding chin) absent Dentition: No loose teeth or bridges Possible difficult airway: No ASA Classification *see protocol: CLASS II-Mild systemic disease Plan of Care: Pt appropriate candidate for procedure/moderate/conscious sedation , Risks/benefits of procedure/sedation discussed w/ patient/family
--- NOTE | 2017-04-13 15:23 | Internal Med Progress Note ---
<Yolis Argueta - Last Filed: 04/13/17 15:21> Date of Encounter: 04/13/17 Time of Encounter: 15:21 - Assessment and plan (1) Wenckebach second degree AV block Current Visit: Yes Status: Acute Assessment and plan: continues to have persistent AV block. came in with symptomatic second degree Wencheback. patient denies history of Afib 03/25/17 echo shows LVEF 55-60%, mild LVH, indeterminate diastolic funciton, moderate pulmonary HTN, no significant valvular dysfunction. TSH within normal limits. Plan: hold AV latha blockers. NPO pacemaker placement today per electrophysiology (2) Hyperkalemia Current Visit: Yes Status: Resolved Assessment and plan: resolved (3) ESRD (end stage renal disease) Current Visit: Yes Status: Acute Assessment and plan: New EsRD patient. Appreciate nephro recs. outpatient HD planned per nephro. Plan: continue with dialysis (4) Anemia Current Visit: No Status: Acute Assessment and plan: S/p transfusion of 1 unit during this hospitalization. : B12 255, folate 8.7, low iron Plan: will monitor H/H start folate supplement epo during dialysis per nephro outpatient HD planning being arranged. Qualifiers: Anemia type: due to chronic kidney disease Chronic kidney disease stage: on chronic dialysis Qualified Code(s): N18.6 - End stage renal disease; D63.1 - Anemia in chronic kidney disease; D63.1 - Anemia in chronic kidney disease; Z99.2 - Dependence on renal dialysis; Z99.2 - Dependence on renal dialysis; Z99.2 - Dependence on renal dialysis; Z99.2 - Dependence on renal dialysis (5) Diabetes mellitus Current Visit: Yes Status: Chronic Assessment and plan: continue sliding scale insulin. ACHS accuchecks. Qualifiers: Diabetes mellitus type: type 2 Diabetes mellitus complication status: with kidney complications Diabetes mellitus complication detail: with chronic kidney disease Diabetes mellitus terminal worker insulin use: with shelter use Chronic kidney disease stage: on chronic dialysis Qualified Code(s): E11.22 - Type 2 diabetes mellitus with diabetic chronic kidney disease; N18.6 - End stage renal disease; Z99.2 - Dependence on renal dialysis; Z99.2 - Dependence on renal dialysis; Z99.2 - Dependence on renal dialysis; N18.6 - End stage renal disease; N18.6 - End stage renal disease; N18.6 - End stage renal disease ; Z79.4 - long term care social worker (current) use of insulin; Z79.4 - long term care social worker (current) use of insulin; Z79.4 - long term care social worker (current) use of insulin; Z79.4 - senior care ( current) use of insulin; Z99.2 - Dependence on renal dialysis (6) HTN (hypertension) Current Visit: Yes Status: Chronic Assessment and plan: currently holding AV latha blockers because of 2nd degree AV block. patient has PRN hydralazine. blood pressures well controlled at this time. Qualifiers: Hypertension type: essential hypertension Qualified Code(s): I10 - Essential (primary) hypertension (7) DVT prophylaxis Current Visit: Yes Status: Acute Assessment and plan: heparin SQ - Subjective Interval history: 66M evaluated at bedside. patient denies nausea, vomiting, diarrhea, fever, chills, chest pain, shortness of breath. he denies any further problems today. - Constitutional Vitals: Temp Pulse Resp BP Pulse Ox 97.9 F 66 16 124/63 100 04/13/17 11:31 04/13/17 11:31 04/13/17 11:31 04/13/17 11:31 04/13/17 11:31 General appearance: Present: cooperative, A&O X 3, pleasant, no acute distress, answers questions appropriately - Head Head exam: Present: atraumatic, normocephalic - Neck Neck exam general surgery: Present: supple, trachea midline - Respiratory Respiratory exam: Present: CTAB - Cardiovascular Cardiovascular exam: Present: +S1, +S2 Additional comments: bradycardic - GI/Abdominal GI/Abdominal exam: Present: normal bowel sounds, soft. Absent: distended, tenderness - Extremities Exam Extremities exam: Present: pedal edema (+2 bilateral lower extremity pitting edema. ). Absent: cyanotic - Neurological Exam Neurological exam: Present: alert, oriented X3, no focal deficits - Psychiatric Psychiatric exam: Present: normal affect, normal mood - Skin Skin exam: Present: intact Internal Medicine: Result - Labs CBC & Chem 7: 04/13/17 06:22 04/13/17 06:22 Labs: Short CBC 04/13/17 Range/Units 06:22 WBC 8.1 (4.3-11.1) K/mcL Hgb 8.8 L (12.9-16.9) g/dL Hct 28.2 L (37.5-50.1) % Plt Count 224 D (140-400) K/mcL Neutrophils # 5.9 (1.6-8.9) K/mcL BMP 04/13/17 06:22 Sodium 136 Potassium 4.3 Chloride 98 Carbon Dioxide 31 H BUN 33 H D Creatinine 3.53 H Glucose 350 H Calcium 9.1 - ABG Interpretation ABG results: ABG ABG pH 7.44 pH Units (7.32-7.45) 04/13/17 05:01 ABG pCO2 50 mmHg (35-45) H 04/13/17 05:01 ABG pO2 98 mmHg (85-104) 04/13/17 05:01 ABG O2 Saturation 98 % (95-98) 04/13/17 05:01 PT/INR, D-dimer PT 14.9 Seconds (9.4-12.1) H 04/08/17 15:32 Consult Discharge Plan - Plan Referrals: [facility] [Other] (OFFICE WILL CALL PATIENT AT HOME WITH A FOLLOW UP APPOINTMENT) [facility] [Primary Care Provider] - 04/16/17 12:15 pm <Carmelo Saenz - Last Filed: 04/13/17 17:18> Date of Encounter: 04/13/17 - Assessment and plan (1) Diabetes mellitus Current Visit: Yes Status: Chronic Qualifiers: Diabetes mellitus type: type 2 Diabetes mellitus complication status: with kidney complications Diabetes mellitus complication detail: with chronic kidney disease Diabetes mellitus shelter insulin use: with shelter use Chronic kidney disease stage: on chronic dialysis Qualified Code(s): E11.22 - Type 2 diabetes mellitus with diabetic chronic kidney disease; N18.6 - End stage renal disease; Z99.2 - Dependence on renal dialysis; Z99.2 - Dependence on renal dialysis; Z99.2 - Dependence on renal dialysis; N18.6 - End stage renal disease; N18.6 - End stage renal disease; N18.6 - End stage renal disease ; Z79.4 - long term care social worker (current) use of insulin; Z79.4 - senior care (current) use of insulin; Z79.4 - long term care social worker (current) use of insulin; Z79.4 - senior care ( current) use of insulin; Z99.2 - Dependence on renal dialysis (2) Hyperkalemia Current Visit: Yes Status: Resolved (3) Wenckebach second degree AV block Current Visit: Yes Status: Acute (4) ESRD (end stage renal disease) Current Visit: Yes Status: Acute (5) HTN (hypertension) Current Visit: Yes Status: Chronic Qualifiers: Hypertension type: essential hypertension Qualified Code(s): I10 - Essential (primary) hypertension (6) Anemia Current Visit: No Status: Acute Qualifiers: Anemia type: due to chronic kidney disease Chronic kidney disease stage: on chronic dialysis Qualified Code(s): N18.6 - End stage renal disease; D63.1 - Anemia in chronic kidney disease; D63.1 - Anemia in chronic kidney disease; Z99.2 - Dependence on renal dialysis; Z99.2 - Dependence on renal dialysis; Z99.2 - Dependence on renal dialysis; Z99.2 - Dependence on renal dialysis (7) MARVA (obstructive sleep apnea) Current Visit: Yes Status: Suspected Assessment and plan: Did not qualify for bipap. Will need sleep study for CPAP. - Constitutional Vitals: Temp Pulse Resp BP Pulse Ox 97.9 F 66 16 124/63 100 04/13/17 11:31 04/13/17 11:31 04/13/17 11:31 04/13/17 11:31 04/13/17 11:31 Internal Medicine: Result - Labs CBC & Chem 7: 04/13/17 06:22 04/13/17 06:22 Labs: Short CBC 04/13/17 Range/Units 06:22 WBC 8.1 (4.3-11.1) K/mcL Hgb 8.8 L (12.9-16.9) g/dL Hct 28.2 L (37.5-50.1) % Plt Count 224 D (140-400) K/mcL Neutrophils # 5.9 (1.6-8.9) K/mcL BMP 04/13/17 06:22 Sodium 136 Potassium 4.3 Chloride 98 Carbon Dioxide 31 H BUN 33 H D Creatinine 3.53 H Glucose 350 H Calcium 9.1 - ABG Interpretation ABG results: ABG ABG pH 7.44 pH Units (7.32-7.45) 04/13/17 05:01 ABG pCO2 50 mmHg (35-45) H 04/13/17 05:01 ABG pO2 98 mmHg (85-104) 04/13/17 05:01 ABG O2 Saturation 98 % (95-98) 04/13/17 05:01 PT/INR, D-dimer PT 14.9 Seconds (9.4-12.1) H 04/08/17 15:32 - Attending Attestation I examined this patient and my medical decision-making was reviewed with the Resident Physician on 04/13/17. I agree with the documented findings, disposition and treatment plan as described except to the extent set forth below. Mr Chery is currently admitted for ESRD starting on dialysis as well as heart block. He remains moderate to high risk due to potential for worsening cardiac and respiratory status. He is to have pacemaker placed today. Mr Chery was reluctant to have pacer but went this afternoon. No CP or SOB. Feels he is less swollen at this time. No fever or chills. Tolerating dialysis. Exam Alert. Comfortable Mucus membranes dry Heart irreg Lungs clear anteriorly Abd soft and nontender Edema present but less I/P 1. Heart block - for pacer today. 2. ESRD - tolerating dialysis. Working on dialysis time as outpatient. 3. Hyperkalemia improved. 4. Hypoxia - did not qualify for bipap. Will need outpatient study for CPAP. Will work on arranging this at discharge. Further diagnoses and plan as above.
[2017-04-13] MEDS ORDERED: Clindamycin 600 MG/50 ML 1,200 MG/100 ML IV.SOLN IVPB ONE (16:10)
[2017-04-13] MEDS ORDERED: 0.9 % Sodium Chloride 1,000 ML ONE (16:10)
[2017-04-13] MEDS ORDERED: 0.9 % Sodium Chloride 500 ML ONE (16:10)
[2017-04-13] MEDS ORDERED: *HR* Midazolam HCl 2 MG/2 ML VIAL ONE (16:15)
[2017-04-13] MEDS ORDERED: *HR* FentaNYL (PF) 100 MCG/2 ML VIAL ONE (16:15)
[2017-04-13] MEDS ORDERED: *HR* Morphine 2 MG/ML SYRINGE IVP PRN (17:10)
[2017-04-13] MEDS: Insulin DETEMIR 100 UNIT/ML X5UNITS SQ SCH (18:00)
[2017-04-14] MEDS: *HR* Heparin 5,000 UNIT/ML VIAL SQ SCH ×4 (01:24→23:57)
[2017-04-14] MEDS ORDERED: Clindamycin 900 MG/50 ML 900 MG/50 ML IV.SOLN IVPB SCH (02:00)
[2017-04-14 06:32] LABS: Basophils % 0.5 %; Eosinophils # 0.3 K/mcL (0.0-0.6); Eosinophils % 3.5 %; Hematocrit 25.4 % (37.5-50.1); Immature Granulocytes % 0.1 % (0-4); Lymphocytes % 11.9 %; Mean Corpuscular HGB Conc 31.5 g/dL (31.6-35.5); Mean Corpuscular Hemoglobin 28.5 pg (28.0-33.3); Mean Corpuscular Volume 90.4 fL (83.0-100.0); Mean Platelet Volume 10.9 fL (9.4-12.4); Monocytes % 11.7 %; Neutrophils # 6.3 K/mcL (1.6-8.9); Platelet Count 202 K/mcL (140-400); Red Blood Count 2.81 M/mcL (4.19-5.50); Red Cell Distribution Width 13.6 % (11.5-14.5); Segmented Neutrophils % 72.3 %
[2017-04-14 06:34] LABS: Calcium 8.5 mg/dL (8.6-10.8); Magnesium 2.1 mg/dL (1.6-2.6); Phosphorous 3.7 mg/dL (2.3-4.7)
[2017-04-14] MEDS ORDERED: *HR* Heparin 10,000 UNIT/10 ML VIAL IV PRN (07:38)
[2017-04-14] MEDS ORDERED: 0.9 % Sodium Chloride 250 ML IVC PRN (07:38)
--- NOTE | 2017-04-14 09:10 | Cardiology Progress Note ---
Date of Encounter: 04/14/17 Time of Encounter: 09:08 Assessment and Plan (1) Connor second degree AV block Current Visit: Yes Status: Acute Symptomatic second Degree type I AV block seen during stay. Initially thought to be secondary to hyperkalemia and ESRD. No improvement despite several days of dialysis and potassium returning to normal. S/p dual chamber PPM placement with no complications. Post procedure day one chest-xray is normal. Post procedure device check was normal. He is recommended to follow in the device clinic in one week for a wound check and one month for a device check. Out-patient f/u in [address] Kimbrough. Activity restrictions and wound care reviewed with patient. No lifting over 5 lbs with left arm for one month. No driving for two weeks. Instructed to remove dressing in 48 hours. Keep incision clean and dry. Discussion w patient/family: The assessment and plan as outlined above was discussed with the patient and/or family members who expressed understanding and agreement. All questions were answered. Thank you for involving us in the care of your patient. Please call with any questions. Subjective Principal diagnosis: second degree type I AV block Interval history: Mr. Chery is s/p dual chamber PPM placement. No complications from procedure. Patient seen in the dialysis unit. Denies pain from incision. Objective Vital Signs, Last 4 Hours Temp Pulse Resp BP Pulse Ox 04/14/17 07:26 98.6 F 67 16 156/76 99 General: Conversant, No Apparent Distress HEENT: Atraumatic, Normocephaly, Mucus Membranes Moist Neck: No JVD, Normal carotid pulses Cardiac: Reg Rate and Rhythm, Normal S1 and S2, No Murmur, Other (Left upper chest dressing dry and intact. No edema or redness noted around incision. ) Lungs: Normal Breath Sounds, No Wheeze, Rales, Rhonchi Neuro: Alert and responsive, No focal deficits noted Abdomen: Soft, Non-Tender Skin: No rashes noted on visualized skin Musculoskeletal: No Chest Wall Tenderness Extremities: No Clubbing, No Cyanosis, No Edema, Normal Pulses Results 04/14/17 05:27 04/14/17 05:27 Lab Results 04/14/17 04/14/17 05:27 05:27 WBC 8.7 Hgb 8.0 L Hct 25.4 L Plt Count 202 Sodium 140 Potassium 4.0 Chloride 102 Carbon Dioxide 28 BUN 38 H Creatinine 3.63 H Glucose 201 H Calcium 8.5 L Magnesium 2.1 - Imaging and Cardiology Echo: report reviewed - EKG Interpretation EKG results cardiology: personally reviewed Consult Discharge Plan - Plan Referrals: [facility] [Other] (OFFICE WILL CALL PATIENT AT HOME WITH A FOLLOW UP APPOINTMENT) [facility] [Primary Care Provider] - 04/16/17 12:15 pm
--- NOTE | 2017-04-14 11:16 | Discharge Summary ---
<Yolis Argueta - Last Filed: 04/16/17 09:04> Date of Encounter: 04/16/17 Time of Encounter: 11:03 - Discharge Diagnosis (1) Wenckebach second degree AV block Priority: Primary Status: Resolved (2) Hyperkalemia Priority: Secondary Status: Resolved (3) ESRD (end stage renal disease) Priority: Secondary Status: Acute (4) Anemia Priority: Secondary Status: Acute Qualifiers: Anemia type: due to chronic kidney disease Chronic kidney disease stage: on chronic dialysis Qualified Code(s): N18.6 - End stage renal disease; D63.1 - Anemia in chronic kidney disease; D63.1 - Anemia in chronic kidney disease; Z99.2 - Dependence on renal dialysis; Z99.2 - Dependence on renal dialysis; Z99.2 - Dependence on renal dialysis; Z99.2 - Dependence on renal dialysis (5) Diabetes mellitus Priority: Secondary Status: Chronic Qualifiers: Diabetes mellitus type: type 2 Diabetes mellitus complication status: with kidney complications Diabetes mellitus complication detail: with chronic kidney disease Diabetes mellitus detention insulin use: with supervisor long goods use Chronic kidney disease stage: on chronic dialysis Qualified Code(s): E11.22 - Type 2 diabetes mellitus with diabetic chronic kidney disease; N18.6 - End stage renal disease; Z99.2 - Dependence on renal dialysis; Z99.2 - Dependence on renal dialysis; Z99.2 - Dependence on renal dialysis; N18.6 - End stage renal disease; N18.6 - End stage renal disease; N18.6 - End stage renal disease ; Z79.4 - intermodal dispatcher (current) use of insulin; Z79.4 - intermodal dispatcher (current) use of insulin; Z79.4 - [facility] (current) use of insulin; Z79.4 - intermodal dispatcher ( current) use of insulin; Z99.2 - Dependence on renal dialysis (6) HTN (hypertension) Priority: Secondary Status: Chronic Qualifiers: Hypertension type: essential hypertension Qualified Code(s): I10 - Essential (primary) hypertension (7) DVT prophylaxis Priority: Secondary Status: Acute - Discharge Medications Prescriptions: Folic Acid 1 mg PO DAILY #30 tablet Home Medications: Amlodipine Besylate 10 mg PO DAILY 03/24/17 [History] Aspirin Enteric Coated [Aspirin EC] 81 mg PO DAILY 03/24/17 [History] Dorzolamide/Timolol [Cosopt] 1 drop BOTH EYES BID 03/24/17 [History] Furosemide [Lasix] 60 mg PO DAILY 03/24/17 [History] Insulin Glargine,Hum.rec.anlog [Lantus Solostar] 36 unit SQ QAM 03/24/17 [ History] Ketorolac OPTH Soln [Acular] 1 drop LEFT EYE BID 03/24/17 [History] Metoprolol [Lopressor] 25 mg PO BID 03/24/17 [History] Potassium Chloride [Klor-Con 10] 10 meq PO DAILY 03/24/17 [History] Nitroglycerin [Nitrostat] 0.4 mg SL Q5M PRN 04/08/17 [History] Folic Acid 1 mg PO DAILY #30 tablet 04/14/17 [Rx] Allergies/Adverse Reactions: 3 Allergy/AdvReac Type Severity Reaction Status Date / Time fluvastatin Allergy Difficulty Verified 03/24/17 19:24 Breathing gemfibrozil Allergy Difficulty Verified 03/24/17 19:24 Breathing lovastatin Allergy Difficulty Verified 03/24/17 19:24 Breathing Penicillins [PCN] Allergy Difficulty Verified 03/24/17 19:23 Breathing simvastatin Allergy Difficulty Verified 03/24/17 19:24 Breathing Procedures/tests Complete & Pending: Procedures Performed prior 72 hours Category Date Time Status CL Insert Permanent Pacemaker [CL] Routine Certified Hand Therapist 04/13/17 09:07 Completed Date of admission: 04/08/17 21:31 [facility] physician: [facility] Consults: 04/09/17 05:30 Consult to Dialysis [CONS] ONCE 04/09/17 11:07 Consult to Interventional Radiology [CONS] Routine Consulting Provider: Radiology Interventional Cols Reason for Consult: Permacath Time Notified: 11:05 Call Completed: Yes 04/09/17 15:56 Consult to Respiratory Therapy [CONS] Routine Reason for Consult: Bipap, MARVA Call Completed: No 04/10/17 07:19 Consult to Pulmonology [CONS] Routine Consulting Provider: [facility] Reason for Consult: MARVA and hypoxemia Time Notified: 07:20 Call Completed: Yes 04/11/17 12:37 Consult to Cardiology [CONS] Routine Comment: Consulting Provider: Cardiology Marybeth Reason for Consult: Bradycardia, heart block Time Notified: 12:30 Call Completed: Yes PT [Consult to Physical Therapy] [CONS] Routine Comment: Evaluate, develop and implement POC Reason for Consult: Weakness 04/11/17 12:38 OT [Consult to Occupational Therapy] [CONS] Routine Comment: Evaluate, develop and implement POC Reason for Consult: Weakness 04/12/17 08:34 Consult to Electrophysiology (EP) [CONS] Routine Consulting Provider: Smita Rueda Reason for Consult: ?complete heart block Call Completed: Yes 04/12/17 09:15 Consult to Dialysis [CONS] ONCE 04/13/17 11:01 Consult to Electric Installer [CONS] Routine Reason for SW Consult: Outpatient dialysis set up. 04/14/17 07:45 Consult to Dialysis [CONS] ONCE Discharging clinician: Yolis Argueta Anticipated date of discharge: 04/16/17 - Patient Status Disposition: Home, Self-Care Condition: Fair Functional capacity at discharge: independent ambulation Overall status at discharge: patient is back to baseline - Discharge Instructions Instructions: Folic Acid (By mouth), Atrial Fibrillation (DC), Chronic Kidney Disease (GEN) Follow Up With: MARYBETH,CARDIOLOGY [Other] (OFFICE WILL CALL PATIENT AT HOME WITH A FOLLOW UP APPOINTMENT) Larry Vu MD [Partnered Physician] - 05/17/17 3:30 pm [facility] [Primary Care Provider] - 04/23/17 1:45 pm Additional Instructions: follow up with your pcp within one week of discharge take all meds as prescribed follow up outpatient with cardiology: follow up in device clinic in one week for wound check and in one month for device check. outpatient follow up with Dr. Kimbrough in three months. activity restrictions and wound care reviewed with patient. no lifting over five pounds with left arm for one month. no driving x2 weeks. remove dressing in 48 hours. keep incision clean and dry. - Diet and Activity Activity: increase activity as tolerated Diet: diabetic diet, low fat, low cholesterol Hospital course: Mr. Chery is a 66 year old male with PMHx of CKD stage V, CHF, DM, HLD, HTN. Patient arrived to [facility] on 04/08/17 with chief complaints of generalized weakness and shorntess of breath. He was advised to go to the ED due to elevated potassium of 6.4. He also had EKG changes consistent with second degree heart block. He was admitted for further workup. Of note, patient has extensive history of leaving AMA from the hospital. Two weeks prior, he was admitted for acute CHF and left AMA, and did not follow up with nephrology outpatient for labwork. Consult to nephrology was made and patient was emergently dialyzed. Per nephrology, patient has progressed to ESRD. CXR showed bibasilar atalectasis. consult to electrophysiology was made for persistent second degree heart block. Patient had dual chamber PPC placement on 04/13/17 with no complications. post procedure device check was normal. Patient did not qualify for BiPAP overnight while in the hospital, but he did qualify for overnight oxygen due to desat. Patient had outpatient dialysis set up, with home oxygen set up as well. He had no acute events and was stable throughout the course of his hospitalization. He will be discharged home in stable condition. Dialysis schedule: [facility]. plan: follow up with your pcp within one week of discharge take all meds as prescribed follow up outpatient with cardiology: follow up in device clinic in one week for wound check and in one month for device check. outpatient follow up with Dr. Kimbrough in three months. activity restrictions and wound care reviewed with patient. no lifting over five pounds with left arm for one month. no driving x2 weeks. remove dressing in 48 hours. keep incision clean and dry - Time Spent with Patient Total time spent providing and/or coordinating discharge services: Greater than 30 minutes - Constitutional Vitals: Temp Pulse Resp BP Pulse Ox 98.6 F 67 15 97/60 99 04/14/17 08:15 04/14/17 07:26 04/14/17 08:15 04/14/17 10:30 04/14/17 07:26 General appearance: Present: cooperative, A&O X 3, pleasant, no acute distress, answers questions appropriately - Head Head exam: Present: atraumatic, normocephalic - Neck Neck exam general surgery: Present: supple, trachea midline - Respiratory Respiratory exam: Present: CTAB - Cardiovascular Cardiovascular exam: Present: RRR, +S1, +S2 - GI/Abdominal GI/Abdominal exam: Present: distended, normal bowel sounds, soft. Absent: tenderness - Extremities Exam Additional comments: trace pitting edema on bilateral lower extremity. - Neurological Exam Neurological exam: Present: alert, oriented X3, no focal deficits - Skin Skin exam: Present: intact <DanyCarmelo A - Last Filed: 04/16/17 13:14> Date of Encounter: 04/16/17 - Discharge Diagnosis (1) ESRD (end stage renal disease) on dialysis Priority: Primary Status: Acute (2) Diabetes mellitus Status: Chronic Qualifiers: Diabetes mellitus type: type 2 Diabetes mellitus complication status: with kidney complications Diabetes mellitus complication detail: with chronic kidney disease Diabetes mellitus supervisor long goods insulin use: with supervisor long goods use Chronic kidney disease stage: on chronic dialysis Qualified Code(s): E11.22 - Type 2 diabetes mellitus with diabetic chronic kidney disease; N18.6 - End stage renal disease; Z99.2 - Dependence on renal dialysis; Z99.2 - Dependence on renal dialysis; Z99.2 - Dependence on renal dialysis; N18.6 - End stage renal disease; N18.6 - End stage renal disease; N18.6 - End stage renal disease ; Z79.4 - [facility] (current) use of insulin; Z79.4 - intermodal dispatcher (current) use of insulin; Z79.4 - [facility] (current) use of insulin; Z79.4 - [facility] ( current) use of insulin; Z99.2 - Dependence on renal dialysis (3) Hyperkalemia Status: Resolved (4) Wenckebach second degree AV block Status: Resolved (5) HTN (hypertension) Status: Chronic Qualifiers: Hypertension type: essential hypertension Qualified Code(s): I10 - Essential (primary) hypertension (6) Anemia Status: Acute Qualifiers: Anemia type: due to chronic kidney disease Chronic kidney disease stage: on chronic dialysis Qualified Code(s): N18.6 - End stage renal disease; D63.1 - Anemia in chronic kidney disease; D63.1 - Anemia in chronic kidney disease; Z99.2 - Dependence on renal dialysis; Z99.2 - Dependence on renal dialysis; Z99.2 - Dependence on renal dialysis; Z99.2 - Dependence on renal dialysis (7) MARVA (obstructive sleep apnea) Priority: Secondary Status: Suspected (8) Obesity (BMI 30-39.9) Priority: Secondary Status: Chronic Date of admission: 04/08/17 21:31 Primary care physician: [facility] Consults: 04/09/17 05:30 Consult to Dialysis [CONS] ONCE 04/09/17 11:07 Consult to Interventional Radiology [CONS] Routine Consulting Provider: Radiology Interventional Cols Reason for Consult: Permacath Time Notified: 11:05 Call Completed: Yes 04/09/17 15:56 Consult to Respiratory Therapy [CONS] Routine Reason for Consult: Bipap, MARVA Call Completed: No 04/10/17 07:19 Consult to Pulmonology [CONS] Routine Consulting Provider: [facility] Reason for Consult: MARVA and hypoxemia Time Notified: 07:20 Call Completed: Yes 04/11/17 12:37 Consult to Cardiology [CONS] Routine Comment: Consulting Provider: Cardiology Marybeth Reason for Consult: Bradycardia, heart block Time Notified: 12:30 Call Completed: Yes PT [Consult to Physical Therapy] [CONS] Routine Comment: Evaluate, develop and implement POC Reason for Consult: Weakness 04/11/17 12:38 OT [Consult to Occupational Therapy] [CONS] Routine Comment: Evaluate, develop and implement POC Reason for Consult: Weakness 04/12/17 08:34 Consult to Electrophysiology (EP) [CONS] Routine Consulting Provider: Electrophysiology Marybeth Reason for Consult: ?complete heart block Call Completed: Yes 04/12/17 09:15 Consult to Dialysis [CONS] ONCE 04/13/17 11:01 Consult to Electric Installer [CONS] Routine Reason for SW Consult: Outpatient dialysis set up. 04/14/17 07:45 Consult to Dialysis [CONS] ONCE 04/16/17 07:45 Consult to Dialysis [CONS] ONCE Hospital course: Mr. Chery is a 66 year old male - Time Spent with Patient Total time spent providing and/or coordinating discharge services: 40min - Constitutional Vitals: Temp Pulse Resp BP Pulse Ox 97.5 F L 65 18 135/62 99 04/16/17 10:00 04/16/17 07:44 04/16/17 10:00 04/16/17 12:15 04/16/17 07:26 - Attending Attestation I examined this patient and my medical decision-making was reviewed with the Resident Physician on 04/16/17. I agree with the documented findings, disposition and treatment plan as described except to the extent set forth below. Mr Chery has been admitted for hyperkalemia and ESRD started on HD. He also was noted to have CHB which did not resolve completely after correction of K. He had pacer placed. He is quite hypoxic when sleeping and arrangements made for nocturnal oxygen. He is now afebrile with stable vitals and ready for discharge home. Exam Alert. Comfortable Mucus membranes dry Heart reg Lungs diminished Less edema Plan D/C home today Outpatient dialysis Nocturnal oxygen Follow up with PCP, renal and cardiology. Ultimately will need sleep study for CPAP.
[2017-04-14] MEDS ORDERED: 0.9 % Sodium Chloride 2,000 ML ONE (11:53)
[2017-04-14] MEDS: Insulin LISPRO 300 UNITS/3 ML VIAL SQ SCH ×4 (12:22→21:05)
[2017-04-14] MEDS: Aspirin Enteric Coated 81 MG Tablet PO SCH (13:22)
[2017-04-14] MEDS: Folic Acid 1 MG TABLET PO SCH (13:22)
[2017-04-14] MEDS: Insulin DETEMIR 100 UNIT/ML X5UNITS SQ SCH (13:23)
[2017-04-14] MEDS: Ketorolac OPTH Soln 5 ML BOTTLE LEFT EYE SCH ×2 (13:28→19:58)
[2017-04-14] MEDS: Dorzolamide/Timolol OPTH 10 ML BOTTLE BOTH EYES SCH ×2 (13:28→19:58)
--- NOTE | 2017-04-14 17:20 | Nephrology Progress Note ---
Date of Encounter: 04/14/17 Time of Encounter: 11:00 - Assessment and Plan (1) ESRD (end stage renal disease) Current Visit: Yes Status: Acute New ESRD, s/p 3 consecutive HD sessions and now on a -- schedule. Continue hD with UF as tolerated Outpatient HD pending [facility] approval, discussed with social media designer (2) Fluid overload Current Visit: Yes Status: Acute Progressively improving with continued UF with HD Qualifiers: Hypervolemia type: other Qualified Code(s): E87.79 - Other fluid overload (3) Hyperkalemia Current Visit: Yes Status: Resolved Resolved, will monitor Continue renal diet (4) Anemia Current Visit: No Status: Acute Hgb noted at 8 from 8.8 post transfusion pRBCs Transfusion parameters per primary team Qualifiers: Anemia type: due to chronic kidney disease Chronic kidney disease stage: on chronic dialysis Qualified Code(s): N18.6 - End stage renal disease; D63.1 - Anemia in chronic kidney disease; D63.1 - Anemia in chronic kidney disease; Z99.2 - Dependence on renal dialysis; Z99.2 - Dependence on renal dialysis; Z99.2 - Dependence on renal dialysis; Z99.2 - Dependence on renal dialysis Subjective Principal diagnosis: second degree type I AV block Interval history: Pt seen and examined on HD s/p pacemaker placement yesterday. No new complaints Objective - Vital Signs Vital signs: Vital Signs Temp Pulse Resp BP Pulse Ox 04/14/17 11:55 98.0 F 17 107/56 04/14/17 11:45 101/55 04/14/17 11:30 98/47 04/14/17 11:15 105/53 04/14/17 11:00 108/54 04/14/17 10:45 99/51 04/14/17 10:30 97/60 04/14/17 10:15 96/58 04/14/17 10:00 104/60 04/14/17 09:45 107/55 04/14/17 09:30 99/59 04/14/17 09:15 95/56 04/14/17 09:00 117/67 04/14/17 08:45 135/84 04/14/17 08:30 169/76 04/14/17 08:15 98.6 F 15 168/75 04/14/17 07:26 98.6 F 67 16 156/76 99 04/14/17 04:53 99.4 F 67 17 154/72 99 04/14/17 00:00 20 131/69 98 04/13/17 23:27 98.9 F 66 15 127/49 99 04/13/17 20:24 98.1 F 67 13 139/59 97 04/13/17 19:33 97.9 F 65 16 137/61 98 04/13/17 18:15 97.9 F 67 16 164/81 94 04/13/17 17:45 97.9 F 68 16 171/77 100 Intake and Output 04/14/17 04/14/17 04/14/17 07:59 15:59 23:59 Intake Total 600 / 600 Output Total 180 / 180 4600 / 4600 Balance -180 / -180 -4000 / -4000 Intake: Oral 0 / 0 Intake, Rinseback and Flushes 600 / 600 Output: Urine 180 / 180 0 / 0 Total Dialysis (HD) Output 4600 / 4600 Other: Meal Lunch Percent of Meal Consumed 100% Blood Glucose* 196 399 Hemodialysis Net Fluid Removed 4000 (mL) - Lab 04/14/17 05:27 04/14/17 05:27 Most recent lab results ABG pH 7.44 pH Units (7.32-7.45) 04/13/17 05:01 ABG pCO2 50 mmHg (35-45) H 04/13/17 05:01 ABG pO2 98 mmHg (85-104) 04/13/17 05:01 ABG HCO3 34 mEq/L (21-27) H 04/13/17 05:01 ABG O2 Saturation 98 % (95-98) 04/13/17 05:01 Calcium 8.5 mg/dL (8.6-10.8) L 04/14/17 05:27 Phosphorus 3.7 mg/dL (2.3-4.7) 04/14/17 05:27 Magnesium 2.1 mg/dL (1.6-2.6) 04/14/17 05:27 Consult Discharge Plan - Plan Instructions: Atrial Fibrillation (DC), Chronic Kidney Disease (GEN) Additional Instructions: follow up with your pcp within one week of discharge take all meds as prescribed follow up outpatient with cardiology: follow up in device clinic in one week for wound check and in one month for device check. outpatient follow up with Dr. Kimbrough in three months. activity restrictions and wound care reviewed with patient. no lifting over five pounds with left arm for one month. no driving x2 weeks. remove dressing in 48 hours. keep incision clean and dry. Referrals: ESTHELA,CARDIOLOGY [Other] (OFFICE WILL CALL PATIENT AT HOME WITH A FOLLOW UP APPOINTMENT) [facility] [Primary Care Provider] - 04/16/17 12:15 pm Prescriptions: Folic Acid 1 mg PO DAILY #30 tablet
--- NOTE | 2017-04-14 17:49 | Internal Med Progress Note ---
<Yolis Argueta - Last Filed: 04/14/17 17:47> Date of Encounter: 04/14/17 Time of Encounter: 11:30 - Assessment and plan (1) Wenckebach second degree AV block Current Visit: Yes Status: Acute Assessment and plan: continues to have persistent AV block. came in with symptomatic second degree [place]. patient denies history of Afib 03/25/17 echo shows LVEF 55-60%, mild LVH, indeterminate diastolic funciton, moderate pulmonary HTN, no significant valvular dysfunction. TSH within normal limits. Plan: s/p placement of pacemaker resumed home meds. outpatient dialysis being set up. [facility]. (2) Hyperkalemia Current Visit: Yes Status: Resolved Assessment and plan: resolved (3) ESRD (end stage renal disease) Current Visit: Yes Status: Acute Assessment and plan: New EsRD patient. Appreciate nephro recs. outpatient HD planned per nephro. Plan: continue with dialysis (4) Anemia Current Visit: No Status: Acute Assessment and plan: S/p transfusion of 1 unit during this hospitalization. 1127/: B12 255, folate 8.7, low iron Plan: will monitor H/H folate supplement epo during dialysis per nephro outpatient HD planning being arranged. Qualifiers: Anemia type: due to chronic kidney disease Chronic kidney disease stage: on chronic dialysis Qualified Code(s): N18.6 - End stage renal disease; D63.1 - Anemia in chronic kidney disease; D63.1 - Anemia in chronic kidney disease; Z99.2 - Dependence on renal dialysis; Z99.2 - Dependence on renal dialysis; Z99.2 - Dependence on renal dialysis; Z99.2 - Dependence on renal dialysis (5) Diabetes mellitus Current Visit: Yes Status: Chronic Assessment and plan: continue sliding scale insulin. ACHS accuchecks. Qualifiers: Diabetes mellitus type: type 2 Diabetes mellitus complication status: with kidney complications Diabetes mellitus complication detail: with chronic kidney disease Diabetes mellitus penitentiary insulin use: with terminologist use Chronic kidney disease stage: on chronic dialysis Qualified Code(s): E11.22 - Type 2 diabetes mellitus with diabetic chronic kidney disease; N18.6 - End stage renal disease; Z99.2 - Dependence on renal dialysis; Z99.2 - Dependence on renal dialysis; Z99.2 - Dependence on renal dialysis; N18.6 - End stage renal disease; N18.6 - End stage renal disease; N18.6 - End stage renal disease ; Z79.4 - prison (current) use of insulin; Z79.4 - buttermaker helper (current) use of insulin; Z79.4 - buttermaker helper (current) use of insulin; Z79.4 - prison ( current) use of insulin; Z99.2 - Dependence on renal dialysis (6) HTN (hypertension) Current Visit: Yes Status: Chronic Assessment and plan: s/p placement of pacemaker. resumed home meds Qualifiers: Hypertension type: essential hypertension Qualified Code(s): I10 - Essential (primary) hypertension (7) DVT prophylaxis Current Visit: Yes Status: Acute Assessment and plan: heparin SQ - Subjective Interval history: 66M evaluated at dialysis. patient denies nausea, vomiting, diarrhea, fever, chills, chest pain, shortness of breath. he denies any further problems today. - Constitutional Vitals: Temp Pulse Resp BP Pulse Ox 98.0 F 67 17 107/56 99 04/14/17 11:55 04/14/17 07:26 04/14/17 11:55 04/14/17 11:55 04/14/17 07:26 General appearance: Present: cooperative, A&O X 3, pleasant, no acute distress, answers questions appropriately - Head Head exam: Present: atraumatic, normocephalic - Neck Neck exam general surgery: Present: supple, trachea midline - Respiratory Respiratory exam: Present: CTAB - Cardiovascular Cardiovascular exam: Present: RRR, +S1, +S2 - GI/Abdominal GI/Abdominal exam: Present: normal bowel sounds, soft. Absent: distended, tenderness - Extremities Exam Additional comments: +2 bilateral lower extremity pitting edema - Neurological Exam Neurological exam: Present: alert, oriented X3, no focal deficits - Psychiatric Psychiatric exam: Present: normal affect, normal mood Internal Medicine: Result - Labs CBC & Chem 7: 04/14/17 05:27 04/14/17 05:27 Labs: Short CBC 04/14/17 Range/Units 05:27 WBC 8.7 (4.3-11.1) K/mcL Hgb 8.0 L (12.9-16.9) g/dL Hct 25.4 L (37.5-50.1) % Plt Count 202 (140-400) K/mcL Neutrophils # 6.3 (1.6-8.9) K/mcL BMP 04/14/17 05:27 Sodium 140 Potassium 4.0 Chloride 102 Carbon Dioxide 28 BUN 38 H Creatinine 3.63 H Glucose 201 H Calcium 8.5 L - ABG Interpretation ABG results: ABG ABG pH 7.44 pH Units (7.32-7.45) 04/13/17 05:01 ABG pCO2 50 mmHg (35-45) H 04/13/17 05:01 ABG pO2 98 mmHg (85-104) 04/13/17 05:01 ABG O2 Saturation 98 % (95-98) 04/13/17 05:01 PT/INR, D-dimer PT 14.9 Seconds (9.4-12.1) H 04/08/17 15:32 - Impressions Impressions Chest X-Ray 04/13/17 17:11 IMPRESSION: No acute cardiopulmonary disease. No pneumothorax status post left-sided pacer placement. D/ / Radu Galvez MD / Radu Galvez MD Interpreting Provider: Radu Galvez MD Chest X-Ray 04/14/17 06:00 IMPRESSION: 1. No active pulmonary disease. D/ / Jerzy Martell MD / Jerzy Martell MD Interpreting Provider: Jerzy Martell MD Consult Discharge Plan - Plan Instructions: Atrial Fibrillation (DC), Chronic Kidney Disease (GEN) Additional Instructions: follow up with your pcp within one week of discharge take all meds as prescribed follow up outpatient with cardiology: follow up in device clinic in one week for wound check and in one month for device check. outpatient follow up with Dr. Kimbrough in three months. activity restrictions and wound care reviewed with patient. no lifting over five pounds with left arm for one month. no driving x2 weeks. remove dressing in 48 hours. keep incision clean and dry. Referrals: [facility]ARDIOLOGY [Other] (OFFICE WILL CALL PATIENT AT HOME WITH A FOLLOW UP APPOINTMENT) [facility],PCP [Primary Care Provider] - 04/16/17 12:15 pm Prescriptions: Folic Acid 1 mg PO DAILY #30 tablet <Carmelo Saenz - Last Filed: 04/14/17 18:29> Date of Encounter: 04/14/17 - Assessment and plan (1) Diabetes mellitus Current Visit: Yes Status: Chronic Qualifiers: Diabetes mellitus type: type 2 Diabetes mellitus complication status: with kidney complications Diabetes mellitus complication detail: with chronic kidney disease Diabetes mellitus terminologist insulin use: with terminologist use Chronic kidney disease stage: on chronic dialysis Qualified Code(s): E11.22 - Type 2 diabetes mellitus with diabetic chronic kidney disease; N18.6 - End stage renal disease; Z99.2 - Dependence on renal dialysis; Z99.2 - Dependence on renal dialysis; Z99.2 - Dependence on renal dialysis; N18.6 - End stage renal disease; N18.6 - End stage renal disease; N18.6 - End stage renal disease ; Z79.4 - prison (current) use of insulin; Z79.4 - buttermaker helper (current) use of insulin; Z79.4 - prison (current) use of insulin; Z79.4 - buttermaker helper ( current) use of insulin; Z99.2 - Dependence on renal dialysis (2) Hyperkalemia Current Visit: Yes Status: Resolved (3) Wenckebach second degree AV block Current Visit: Yes Status: Acute (4) ESRD (end stage renal disease) Current Visit: Yes Status: Acute (5) HTN (hypertension) Current Visit: Yes Status: Chronic Qualifiers: Hypertension type: essential hypertension Qualified Code(s): I10 - Essential (primary) hypertension (6) Anemia Current Visit: No Status: Acute Qualifiers: Anemia type: due to chronic kidney disease Chronic kidney disease stage: on chronic dialysis Qualified Code(s): N18.6 - End stage renal disease; D63.1 - Anemia in chronic kidney disease; D63.1 - Anemia in chronic kidney disease; Z99.2 - Dependence on renal dialysis; Z99.2 - Dependence on renal dialysis; Z99.2 - Dependence on renal dialysis; Z99.2 - Dependence on renal dialysis (7) MARVA (obstructive sleep apnea) Current Visit: Yes Status: Suspected - Constitutional Vitals: Temp Pulse Resp BP Pulse Ox 98.0 F 67 17 107/56 99 04/14/17 11:55 04/14/17 07:26 04/14/17 11:55 04/14/17 11:55 04/14/17 07:26 Internal Medicine: Result - Labs CBC & Chem 7: 04/14/17 05:27 04/14/17 05:27 Labs: Short CBC 04/14/17 Range/Units 05:27 WBC 8.7 (4.3-11.1) K/mcL Hgb 8.0 L (12.9-16.9) g/dL Hct 25.4 L (37.5-50.1) % Plt Count 202 (140-400) K/mcL Neutrophils # 6.3 (1.6-8.9) K/mcL BMP 04/14/17 05:27 Sodium 140 Potassium 4.0 Chloride 102 Carbon Dioxide 28 BUN 38 H Creatinine 3.63 H Glucose 201 H Calcium 8.5 L - ABG Interpretation ABG results: ABG ABG pH 7.44 pH Units (7.32-7.45) 04/13/17 05:01 ABG pCO2 50 mmHg (35-45) H 04/13/17 05:01 ABG pO2 98 mmHg (85-104) 04/13/17 05:01 ABG O2 Saturation 98 % (95-98) 04/13/17 05:01 PT/INR, D-dimer PT 14.9 Seconds (9.4-12.1) H 04/08/17 15:32 - Impressions Impressions Chest X-Ray 04/14/17 06:00 IMPRESSION: 1. No active pulmonary disease. D/ / Jerzy Martell MD / Jerzy Martell MD Interpreting Provider: Jerzy Martell MD - Attending Attestation I examined this patient and my medical decision-making was reviewed with the Resident Physician on 04/14/17. I agree with the documented findings, disposition and treatment plan as described except to the extent set forth below. Mr Chery is currently admitted for ESRD starting dialysis and heart block s/p pacer. He remains moderate to high risk due to potential for worsening clinical status. Mr Chery had dialysis today. Having some pain from pacer (site). No fever or chills. Less swollen. [facility]. Exam Alert. Comfortable Mucus membranes dry Heart reg and paced Lungs clear Edema present but less I/P 1. ESRD on HD 2. Heart block Further diagnoses and plan as above.
[2017-04-15 05:54] LABS: Calcium 8.7 mg/dL (8.6-10.8); Potassium 3.9 mEq/L (3.5-4.5)
[2017-04-15 06:06] LABS: Basophils % 0.4 %; Eosinophils # 0.3 K/mcL (0.0-0.6); Eosinophils % 3.5 %; Hematocrit 28.1 % (37.5-50.1); Hemoglobin 8.9 g/dL (12.9-16.9); Immature Granulocytes % 0.4 % (0-4); Lymphocytes # 1.2 K/mcL (0.6-4.6); Lymphocytes % 12.4 %; Mean Corpuscular HGB Conc 31.7 g/dL (31.6-35.5); Mean Corpuscular Hemoglobin 28.5 pg (28.0-33.3); Mean Corpuscular Volume 90.1 fL (83.0-100.0); Monocytes # 1.3 K/mcL (0.0-1.3); Monocytes % 13.8 %; Neutrophils # 6.7 K/mcL (1.6-8.9); Platelet Count 212 K/mcL (140-400); Red Blood Count 3.12 M/mcL (4.19-5.50); Red Cell Distribution Width 13.6 % (11.5-14.5); Segmented Neutrophils % 69.5 %
[2017-04-15] MEDS: Aspirin Enteric Coated 81 MG Tablet PO SCH (10:06)
[2017-04-15] MEDS: amLODIPine 5 MG TABLET PO SCH (10:07)
[2017-04-15] MEDS: Insulin DETEMIR 100 UNIT/ML X5UNITS SQ SCH (10:07)
[2017-04-15] MEDS: Folic Acid 1 MG TABLET PO SCH (10:07)
[2017-04-15] MEDS: *HR* Heparin 5,000 UNIT/ML VIAL SQ SCH ×2 (10:07→16:28)
[2017-04-15] MEDS: Insulin LISPRO 300 UNITS/3 ML VIAL SQ SCH ×5 (10:07→21:59)
[2017-04-15] MEDS: Dorzolamide/Timolol OPTH 10 ML BOTTLE BOTH EYES SCH ×2 (10:08→22:00)
[2017-04-15] MEDS: Ketorolac OPTH Soln 5 ML BOTTLE LEFT EYE SCH ×2 (10:08→22:00)
--- NOTE | 2017-04-15 14:09 | Nephrology Progress Note ---
Date of Encounter: 04/15/17 Time of Encounter: 13:00 - Assessment and Plan (1) ESRD (end stage renal disease) Current Visit: Yes Status: Acute New ESRD, s/p 3 consecutive HD sessions and now on a -- schedule. Continue hD with UF as tolerated [facility] HD [facility], discussed with adoption social worker (2) Fluid overload Current Visit: Yes Status: Acute Progressively improving with continued UF with HD Qualifiers: Hypervolemia type: other Qualified Code(s): E87.79 - Other fluid overload (3) Hyperkalemia Current Visit: Yes Status: Resolved Resolved, will monitor Continue renal diet (4) Anemia Current Visit: No Status: Acute Hgb noted at 8 from 8.8 post transfusion pRBCs Transfusion parameters per primary team Qualifiers: Anemia type: due to chronic kidney disease Chronic kidney disease stage: on chronic dialysis Qualified Code(s): N18.6 - End stage renal disease; D63.1 - Anemia in chronic kidney disease; D63.1 - Anemia in chronic kidney disease; Z99.2 - Dependence on renal dialysis; Z99.2 - Dependence on renal dialysis; Z99.2 - Dependence on renal dialysis; Z99.2 - Dependence on renal dialysis Subjective Principal diagnosis: second degree type I AV block Interval history: Pt seen and examined on HD s/p pacemaker placement yesterday. No new complaints Objective - Vital Signs Vital signs: Vital Signs Temp Pulse Resp BP Pulse Ox 04/15/17 13:38 74 04/15/17 11:10 74 04/15/17 11:00 99.2 F 68 16 135/59 94 04/15/17 09:34 98 04/15/17 08:00 70 04/15/17 07:20 98.4 F 78 18 142/50 99 04/15/17 04:30 64 04/15/17 03:35 99.1 F 66 19 146/61 94 04/15/17 00:44 97 04/14/17 23:55 62 04/14/17 23:43 99.2 F 73 20 147/65 99 04/14/17 20:44 98.7 F 70 19 137/57 100 04/14/17 19:50 71 Intake and Output 04/14/17 04/15/17 04/15/17 23:59 07:59 15:59 Intake Total 120 / 120 150 / 150 720 / 720 Output Total 200 / 200 Balance 120 / 120 150 / 150 520 / 520 Intake: Oral 120 / 120 150 / 150 720 / 720 Output: Urine 200 / 200 Other: Meal Lunch Percent of Meal Consumed 75% Weight 100.7 kg Blood Glucose* 224 146 276 Patient Weight 04/15/17 23:59 Weight 100.7 kg - Lab 04/15/17 05:09 04/15/17 05:09 Most recent lab results ABG pH 7.44 pH Units (7.32-7.45) 04/13/17 05:01 ABG pCO2 50 mmHg (35-45) H 04/13/17 05:01 ABG pO2 98 mmHg (85-104) 04/13/17 05:01 ABG HCO3 34 mEq/L (21-27) H 04/13/17 05:01 ABG O2 Saturation 98 % (95-98) 04/13/17 05:01 Calcium 8.7 mg/dL (8.6-10.8) 04/15/17 05:09 Phosphorus 3.7 mg/dL (2.3-4.7) 04/14/17 05:27 Magnesium 2.1 mg/dL (1.6-2.6) 04/14/17 05:27 - VTE Documentation of Mechanical Device: Intermittent pneumatic compression device Consult Discharge Plan - Plan Instructions: Atrial Fibrillation (DC), Chronic Kidney Disease (GEN) Additional Instructions: follow up with your pcp within one week of discharge take all meds as prescribed follow up outpatient with cardiology: follow up in device clinic in one week for wound check and in one month for device check. outpatient follow up with Dr. Kimbrough in three months. activity restrictions and wound care reviewed with patient. no lifting over five pounds with left arm for one month. no driving x2 weeks. remove dressing in 48 hours. keep incision clean and dry. Referrals: [facility]ARDIOLOGY [Other] (OFFICE WILL CALL PATIENT AT HOME WITH A FOLLOW UP APPOINTMENT) [facility] - 04/16/17 12:15 pm Prescriptions: Folic Acid 1 mg PO DAILY #30 tablet
--- NOTE | 2017-04-15 16:33 | Nephrology Progress Note ---
Date of Encounter: 04/15/17 Time of Encounter: 16:31 - Assessment and Plan (1) Connor second degree AV block Current Visit: Yes Status: Acute (2) Hyperkalemia Current Visit: Yes Status: Resolved (3) ESRD (end stage renal disease) Current Visit: Yes Status: Acute (4) Anemia Current Visit: No Status: Acute Qualifiers: Anemia type: due to chronic kidney disease Chronic kidney disease stage: on chronic dialysis Qualified Code(s): N18.6 - End stage renal disease; D63.1 - Anemia in chronic kidney disease; D63.1 - Anemia in chronic kidney disease; Z99.2 - Dependence on renal dialysis; Z99.2 - Dependence on renal dialysis; Z99.2 - Dependence on renal dialysis; Z99.2 - Dependence on renal dialysis (5) Diabetes mellitus Current Visit: Yes Status: Chronic Qualifiers: Diabetes mellitus type: type 2 Diabetes mellitus complication status: with kidney complications Diabetes mellitus complication detail: with chronic kidney disease Diabetes mellitus retirement insulin use: with retirement use Chronic kidney disease stage: on chronic dialysis Qualified Code(s): E11.22 - Type 2 diabetes mellitus with diabetic chronic kidney disease; N18.6 - End stage renal disease; Z99.2 - Dependence on renal dialysis; Z99.2 - Dependence on renal dialysis; Z99.2 - Dependence on renal dialysis; N18.6 - End stage renal disease; N18.6 - End stage renal disease; N18.6 - End stage renal disease ; Z79.4 - intermediate (current) use of insulin; Z79.4 - intermediate (current) use of insulin; Z79.4 - terminal system operator (current) use of insulin; Z79.4 - terminal system operator ( current) use of insulin; Z99.2 - Dependence on renal dialysis (6) HTN (hypertension) Current Visit: Yes Status: Chronic Qualifiers: Hypertension type: essential hypertension Qualified Code(s): I10 - Essential (primary) hypertension (7) DVT prophylaxis Current Visit: Yes Status: Acute Subjective Principal diagnosis: second degree type I AV block Interval history: 66M evaluated at dialysis. patient denies nausea, vomiting, diarrhea, fever, chills, chest pain, shortness of breath. he denies any further problems today. Objective - Vital Signs Vital signs: Vital Signs Temp Pulse Resp BP Pulse Ox 04/15/17 16:19 98.4 F 81 15 142/60 95 04/15/17 15:17 72 04/15/17 13:38 74 04/15/17 11:10 74 04/15/17 11:00 99.2 F 68 16 135/59 94 04/15/17 09:34 98 04/15/17 08:00 70 04/15/17 07:20 98.4 F 78 18 142/50 99 04/15/17 04:30 64 04/15/17 03:35 99.1 F 66 19 146/61 94 04/15/17 00:44 97 04/14/17 23:55 62 04/14/17 23:43 99.2 F 73 20 147/65 99 04/14/17 20:44 98.7 F 70 19 137/57 100 04/14/17 19:50 71 Intake and Output 04/15/17 04/15/17 04/15/17 07:59 15:59 23:59 Intake Total 150 / 150 720 / 720 Output Total 200 / 200 Balance 150 / 150 520 / 520 Intake: Oral 150 / 150 720 / 720 Output: Urine 200 / 200 Other: Meal Lunch Percent of Meal Consumed 75% Weight 100.7 kg 100.7 kg Blood Glucose* 146 276 346 Patient Weight 04/15/17 23:59 Weight 100.7 kg - General Appearance General appearance: Present: well-developed, well-nourished, appears started age , obese Neck: Present: supple - Lab 04/15/17 05:09 04/15/17 05:09 Most recent lab results ABG pH 7.44 pH Units (7.32-7.45) 04/13/17 05:01 ABG pCO2 50 mmHg (35-45) H 04/13/17 05:01 ABG pO2 98 mmHg (85-104) 04/13/17 05:01 ABG HCO3 34 mEq/L (21-27) H 04/13/17 05:01 ABG O2 Saturation 98 % (95-98) 04/13/17 05:01 Calcium 8.7 mg/dL (8.6-10.8) 04/15/17 05:09 Phosphorus 3.7 mg/dL (2.3-4.7) 04/14/17 05:27 Magnesium 2.1 mg/dL (1.6-2.6) 04/14/17 05:27 - VTE Documentation of Mechanical Device: Intermittent pneumatic compression device Consult Discharge Plan - Plan Instructions: Atrial Fibrillation (DC), Chronic Kidney Disease (GEN) Additional Instructions: follow up with your pcp within one week of discharge take all meds as prescribed follow up outpatient with cardiology: follow up in device clinic in one week for wound check and in one month for device check. outpatient follow up with Dr. Kimbrough in three months. activity restrictions and wound care reviewed with patient. no lifting over five pounds with left arm for one month. no driving x2 weeks. remove dressing in 48 hours. keep incision clean and dry. Referrals: [facility]CARDIOLOGY [Other] (OFFICE WILL CALL PATIENT AT HOME WITH A FOLLOW UP APPOINTMENT) [facility] [[facility] Provider[facility] - 04/16/17 12:15 pm Prescriptions: Folic Acid 1 mg PO DAILY #30 tablet
--- NOTE | 2017-04-15 16:36 | Internal Med Progress Note ---
<Yolis Argueta - Last Filed: 04/15/17 16:34> Date of Encounter: 04/15/17 Time of Encounter: 16:34 - Assessment and plan (1) Wenckebach second degree AV block Current Visit: Yes Status: Acute Assessment and plan: continues to have persistent AV block. came in with symptomatic second degree [place]. patient denies history of Afib 03/25/17 echo shows LVEF 55-60%, mild LVH, indeterminate diastolic funciton, moderate pulmonary HTN, no significant valvular dysfunction. TSH within normal limits. Plan: s/p placement of pacemaker resumed home meds. outpatient dialysis being set up. [facility] discharge when home oxygen is set up, likely tomorrow. (2) Hyperkalemia Current Visit: Yes Status: Resolved Assessment and plan: resolved (3) ESRD (end stage renal disease) Current Visit: Yes Status: Acute Assessment and plan: New EsRD patient. Appreciate nephro recs. outpatient HD planned per nephro. Plan: continue with dialysis (4) Anemia Current Visit: No Status: Acute Assessment and plan: S/p transfusion of 1 unit during this hospitalization. : B12 255, folate 8.7, low iron Plan: will monitor H/H folate supplement epo during dialysis per nephro outpatient HD planning being arranged. Qualifiers: Anemia type: due to chronic kidney disease Chronic kidney disease stage: on chronic dialysis Qualified Code(s): N18.6 - End stage renal disease; D63.1 - Anemia in chronic kidney disease; D63.1 - Anemia in chronic kidney disease; Z99.2 - Dependence on renal dialysis; Z99.2 - Dependence on renal dialysis; Z99.2 - Dependence on renal dialysis; Z99.2 - Dependence on renal dialysis (5) Diabetes mellitus Current Visit: Yes Status: Chronic Assessment and plan: continue sliding scale insulin. ACHS accuchecks. Qualifiers: Diabetes mellitus type: type 2 Diabetes mellitus complication status: with kidney complications Diabetes mellitus complication detail: with chronic kidney disease Diabetes mellitus usp insulin use: with terminal makeup operator use Chronic kidney disease stage: on chronic dialysis Qualified Code(s): E11.22 - Type 2 diabetes mellitus with diabetic chronic kidney disease; N18.6 - End stage renal disease; Z99.2 - Dependence on renal dialysis; Z99.2 - Dependence on renal dialysis; Z99.2 - Dependence on renal dialysis; N18.6 - End stage renal disease; N18.6 - End stage renal disease; N18.6 - End stage renal disease ; Z79.4 - exterminator helper termite (current) use of insulin; Z79.4 - exterminator helper termite (current) use of insulin; Z79.4 - exterminator helper termite (current) use of insulin; Z79.4 - exterminator helper termite ( current) use of insulin; Z99.2 - Dependence on renal dialysis (6) HTN (hypertension) Current Visit: Yes Status: Chronic Assessment and plan: s/p placement of pacemaker. resumed home meds Qualifiers: Hypertension type: essential hypertension Qualified Code(s): I10 - Essential (primary) hypertension (7) DVT prophylaxis Current Visit: Yes Status: Acute Assessment and plan: heparin SQ - Subjective Interval history: 66M evaluated at bedside. patient denies nausea, vomiting, diarrhea, fever, chills, chest pain, shortness of breath. - Constitutional Vitals: Temp Pulse Resp BP Pulse Ox 98.4 F 81 15 142/60 95 04/15/17 16:19 04/15/17 16:19 04/15/17 16:19 04/15/17 16:19 04/15/17 16:19 General appearance: Present: cooperative, A&O X 3, pleasant, no acute distress, answers questions appropriately - Head Head exam: Present: atraumatic, normocephalic - Neck Neck exam general surgery: Present: supple, trachea midline - Respiratory Respiratory exam: Present: CTAB - Cardiovascular Cardiovascular exam: Present: RRR, +S1, +S2 - GI/Abdominal GI/Abdominal exam: Present: normal bowel sounds, soft. Absent: distended, tenderness - Extremities Exam Additional comments: +1 bilateral lower extremity pitting edema. - Neurological Exam Neurological exam: Present: alert, oriented X3, no focal deficits - Psychiatric Psychiatric exam: Present: normal affect, normal mood - Skin Skin exam: Present: intact Internal Medicine: Result - Labs CBC & Chem 7: 04/15/17 05:09 04/15/17 05:09 Labs: Short CBC 04/15/17 Range/Units 05:09 WBC 9.7 (4.3-11.1) K/mcL Hgb 8.9 L (12.9-16.9) g/dL Hct 28.1 L (37.5-50.1) % Plt Count 212 (140-400) K/mcL Neutrophils # 6.7 (1.6-8.9) K/mcL BMP 04/15/17 05:09 Sodium 140 Potassium 3.9 Chloride 100 Carbon Dioxide 31 H BUN 26 D Creatinine 3.13 H Glucose 146 H Calcium 8.7 - ABG Interpretation ABG results: ABG ABG pH 7.44 pH Units (7.32-7.45) 04/13/17 05:01 ABG pCO2 50 mmHg (35-45) H 04/13/17 05:01 ABG pO2 98 mmHg (85-104) 04/13/17 05:01 ABG O2 Saturation 98 % (95-98) 04/13/17 05:01 PT/INR, D-dimer PT 14.9 Seconds (9.4-12.1) H 04/08/17 15:32 - VTE Documentation of Mechanical Device: Intermittent pneumatic compression device Consult Discharge Plan - Plan Instructions: Atrial Fibrillation (DC), Chronic Kidney Disease (GEN) Additional Instructions: follow up with your pcp within one week of discharge take all meds as prescribed follow up outpatient with cardiology: follow up in device clinic in one week for wound check and in one month for device check. outpatient follow up with Dr. Kimbrough in three months. activity restrictions and wound care reviewed with patient. no lifting over five pounds with left arm for one month. no driving x2 weeks. remove dressing in 48 hours. keep incision clean and dry. Referrals: [facility],CARDIOLOGY [Other] (OFFICE WILL CALL PATIENT AT HOME WITH A FOLLOW UP APPOINTMENT) [facility] - 04/16/17 12:15 pm Prescriptions: Folic Acid 1 mg PO DAILY #30 tablet <Carmelo Saenz - Last Filed: 04/15/17 17:11> Date of Encounter: 04/15/17 - Assessment and plan (1) Diabetes mellitus Current Visit: Yes Status: Chronic Qualifiers: Diabetes mellitus type: type 2 Diabetes mellitus complication status: with kidney complications Diabetes mellitus complication detail: with chronic kidney disease Diabetes mellitus terminal makeup operator insulin use: with terminal makeup operator use Chronic kidney disease stage: on chronic dialysis Qualified Code(s): E11.22 - Type 2 diabetes mellitus with diabetic chronic kidney disease; N18.6 - End stage renal disease; Z99.2 - Dependence on renal dialysis; Z99.2 - Dependence on renal dialysis; Z99.2 - Dependence on renal dialysis; N18.6 - End stage renal disease; N18.6 - End stage renal disease; N18.6 - End stage renal disease ; Z79.4 - exterminator helper termite (current) use of insulin; Z79.4 - longterm (current) use of insulin; Z79.4 - longterm (current) use of insulin; Z79.4 - exterminator helper termite ( current) use of insulin; Z99.2 - Dependence on renal dialysis (2) Hyperkalemia Current Visit: Yes Status: Resolved (3) Wenckebach second degree AV block Current Visit: Yes Status: Resolved (4) ESRD (end stage renal disease) Current Visit: Yes Status: Acute (5) HTN (hypertension) Current Visit: Yes Status: Chronic Qualifiers: Hypertension type: essential hypertension Qualified Code(s): I10 - Essential (primary) hypertension (6) Anemia Current Visit: No Status: Acute Qualifiers: Anemia type: due to chronic kidney disease Chronic kidney disease stage: on chronic dialysis Qualified Code(s): N18.6 - End stage renal disease; D63.1 - Anemia in chronic kidney disease; D63.1 - Anemia in chronic kidney disease; Z99.2 - Dependence on renal dialysis; Z99.2 - Dependence on renal dialysis; Z99.2 - Dependence on renal dialysis; Z99.2 - Dependence on renal dialysis (7) MARVA (obstructive sleep apnea) Current Visit: Yes Status: Suspected - Constitutional Vitals: Temp Pulse Resp BP Pulse Ox 98.4 F 81 15 142/60 95 04/15/17 16:19 04/15/17 16:19 04/15/17 16:19 04/15/17 16:19 04/15/17 16:19 Internal Medicine: Result - Labs CBC & Chem 7: 04/15/17 05:09 04/15/17 05:09 Labs: Short CBC 04/15/17 Range/Units 05:09 WBC 9.7 (4.3-11.1) K/mcL Hgb 8.9 L (12.9-16.9) g/dL Hct 28.1 L (37.5-50.1) % Plt Count 212 (140-400) K/mcL Neutrophils # 6.7 (1.6-8.9) K/mcL BMP 04/15/17 05:09 Sodium 140 Potassium 3.9 Chloride 100 Carbon Dioxide 31 H BUN 26 D Creatinine 3.13 H Glucose 146 H Calcium 8.7 - ABG Interpretation ABG results: ABG ABG pH 7.44 pH Units (7.32-7.45) 04/13/17 05:01 ABG pCO2 50 mmHg (35-45) H 04/13/17 05:01 ABG pO2 98 mmHg (85-104) 04/13/17 05:01 ABG O2 Saturation 98 % (95-98) 04/13/17 05:01 PT/INR, D-dimer PT 14.9 Seconds (9.4-12.1) H 04/08/17 15:32 - Attending Attestation I examined this patient and my medical decision-making was reviewed with the Resident Physician on 04/15/17. I agree with the documented findings, disposition and treatment plan as described except to the extent set forth below. Mr Chery is currently admitted for ESRD on new HD and CHB s/p pacer. He remains moderate risk due to potential for worsening clinical status. He is awaiting discharge arrangements for dialysis and oxygen. Mr Chery is up in chair. No fever or chills. Tolerating dialysis. No new issues. Awaiting discharge arrangements. Exam Alert. Comfortable Mucus membranes dry Heart reg No wheeze or rhonchi Abd soft I/P 1. ESRD on HD 2. CHB s/p pacer 3. Nocturnal hypoxemia - will need sleep study as outpatient.
[2017-04-16] MEDS: *HR* Heparin 5,000 UNIT/ML VIAL SQ SCH ×2 (00:41→07:36)
[2017-04-16 04:19] LABS: Calcium 8.6 mg/dL (8.6-10.8); Magnesium 1.9 mg/dL (1.6-2.6); Phosphorous 3.9 mg/dL (2.3-4.7); Potassium 4.1 mEq/L (3.5-4.5)
[2017-04-16] MEDS: amLODIPine 5 MG TABLET PO SCH (07:36)
[2017-04-16] MEDS: Insulin LISPRO 300 UNITS/3 ML VIAL SQ SCH (07:36)
[2017-04-16] MEDS: Dorzolamide/Timolol OPTH 10 ML BOTTLE BOTH EYES SCH (07:37)
[2017-04-16] MEDS: Ketorolac OPTH Soln 5 ML BOTTLE LEFT EYE SCH (07:37)
[2017-04-16] MEDS: Folic Acid 1 MG TABLET PO SCH (07:37)
[2017-04-16] MEDS: Aspirin Enteric Coated 81 MG Tablet PO SCH (07:37)
[2017-04-16] MEDS ORDERED: 0.9 % Sodium Chloride 250 ML IVC PRN (07:42)
[2017-04-16] MEDS ORDERED: *HR* Heparin 10,000 UNIT/10 ML VIAL IV PRN (07:42)
[2017-04-16] MEDS ORDERED: 0.9 % Sodium Chloride 1,000 ML ONE (08:59)
[2017-04-16] MEDS: Insulin DETEMIR 100 UNIT/ML X5UNITS SQ SCH (09:00)
--- NOTE | 2017-04-16 10:21 | Nephrology Progress Note ---
Date of Encounter: 04/16/17 Time of Encounter: 09:05 - Assessment and Plan (1) ESRD (end stage renal disease) Status: Acute HD planned for today via the Rt Permacath. Home O2, he said, is the reason for delay of discharge. Anemia of CKD: goal is 10-11, and last Hgb was near 8.9. As an outpt, he'll be due for EPO. HTN: will plan to challenge is dry/target weight in the coming weeks, so please hold oral BP meds in the AM until after dialysis. Okay to discharge from a nephrology perspective. Thank you. (2) Hyperkalemia Status: Resolved (3) Fluid overload Status: Acute Qualifiers: Hypervolemia type: other Qualified Code(s): E87.79 - Other fluid overload (4) Uremia Status: Acute (5) Anemia Status: Acute Qualifiers: Anemia type: due to chronic kidney disease Chronic kidney disease stage: on chronic dialysis Qualified Code(s): N18.6 - End stage renal disease; D63.1 - Anemia in chronic kidney disease; D63.1 - Anemia in chronic kidney disease; Z99.2 - Dependence on renal dialysis; Z99.2 - Dependence on renal dialysis; Z99.2 - Dependence on renal dialysis; Z99.2 - Dependence on renal dialysis Subjective Principal diagnosis: second degree type I AV block Interval history: Pt was s/e and he did not affirm N/V/D or F/C and voiced feeling better than compared when he first presented. He did not affirm any problems with his current dialysis catheter. Objective - Vital Signs Vital signs: Vital Signs Temp Pulse Resp BP Pulse Ox 04/16/17 07:44 65 04/16/17 07:26 98.4 F 86 16 151/69 99 04/16/17 04:55 98.8 F 62 18 149/71 100 04/15/17 23:28 99.1 F 65 17 142/60 100 04/15/17 20:20 68 04/15/17 19:42 98.6 F 73 18 150/70 100 04/15/17 16:19 98.4 F 81 15 142/60 95 04/15/17 15:17 72 04/15/17 13:38 74 04/15/17 11:10 74 04/15/17 11:00 99.2 F 68 16 135/59 94 Intake and Output 04/15/17 04/16/17 04/16/17 23:59 07:59 15:59 Intake Total 360 / 360 360 / 360 Output Total 200 / 200 250 / 250 Balance 160 / 160 -250 / -250 360 / 360 Intake: Oral 360 / 360 360 / 360 Output: Urine 200 / 200 250 / 250 Other: Meal Dinner Breakfast Percent of Meal Consumed 100% 100% Stool Size Moderate Stool Consistency formed Stool Characteristics Normal for Patient Stool Color Brown Blood Glucose* 296 176 - General Appearance General appearance: Present: well-developed, well-nourished, appears started age EENT: Present: ATNC, PERRL, mucous membranes moist Neck: Present: supple Respiratory: Present: clear Cardiology: Present: edema (trace ankle edema b/l), regular rate, regular rhythm , normal S1, normal S2 Dialysis Vascular Access: Venous Catheter (Right Permacath noted with dressing in place) Gastrointestinal: Present: normoactive bowel sounds, no tenderness, no guarding Integumentary: Present: no rash, warm and dry Neurologic: Present: no focal deficit, no asterixis, alert and oriented x3 Musculoskeletal: Present: no erythema, no cyanosis Additional Comments: right foot toe amputations (from the past) noticed. Psychiatric: Present: mood/affect appropriate, cooperative - Lab 04/15/17 05:09 04/16/17 03:28 Most recent lab results ABG pH 7.44 pH Units (7.32-7.45) 04/13/17 05:01 ABG pCO2 50 mmHg (35-45) H 04/13/17 05:01 ABG pO2 98 mmHg (85-104) 04/13/17 05:01 ABG HCO3 34 mEq/L (21-27) H 04/13/17 05:01 ABG O2 Saturation 98 % (95-98) 04/13/17 05:01 Calcium 8.6 mg/dL (8.6-10.8) 04/16/17 03:28 Phosphorus 3.9 mg/dL (2.3-4.7) 04/16/17 03:28 Magnesium 1.9 mg/dL (1.6-2.6) 04/16/17 03:28 - VTE Documentation of Mechanical Device: Intermittent pneumatic compression device Consult Discharge Plan - Plan Instructions: Folic Acid (By mouth), Atrial Fibrillation (DC), Chronic Kidney Disease (GEN) Additional Instructions: follow up with your pcp within one week of discharge take all meds as prescribed follow up outpatient with cardiology: follow up in device clinic in one week for wound check and in one month for device check. outpatient follow up with Dr. Kimbrough in three months. activity restrictions and wound care reviewed with patient. no lifting over five pounds with left arm for one month. no driving x2 weeks. remove dressing in 48 hours. keep incision clean and dry. Referrals: [facility],CARDIOLOGY [Other] (OFFICE WILL CALL PATIENT AT HOME WITH A FOLLOW UP APPOINTMENT) Larry Vu MD [Partnered Physician] - 05/17/17 3:30 pm [facility] - 04/23/17 1:45 pm Prescriptions: Folic Acid 1 mg PO DAILY #30 tablet
[2017-04-16 14:43] VITALS: BP 124/57
== END 2017-04-16 14:22 | disposition home or self-care (01) | DRG 242 ==
LOC: EMEROO 14:36 → 2ANU 14:36 → ICNU 21:25 → SUATTDRO 21:31 → 2NNU 04-10 14:37
PROVIDERS: ADMIT Hospitalist; ATTEND Internal Medicine
PROC: IRPERMA (2017-04-09 12:00)

== ENCOUNTER 2018-05-07 17:08 | Observation (INO) ==
--- NOTE | 2018-05-07 17:28 | Emergency Department Note ---
Disposition Clinical Impression: Atypical chest pain, Troponin level elevated Disposition: Admitted As Inpatient Condition: Fair [facility]errals: [facility] [[facility] Care Provider[facility] - Forms: ED Satisfaction Letter General Adult HPI - General Chief complaint: ED Chest Pain Stated complaint: cp Time Seen by Provider: 05/07/18 17:17 Source: patient Limitations: no limitations Nursing Notes Reviewed: Yes Vital Signs Reviewed: Yes - History of Present Illness HPI Narrative: Chief complaint is chest pain and elevated troponin. 67-year-old gentleman from the [facility]. He has chronic end-stage renal disease dialyzes Wednesday and Wednesday, did not dialyze yesterday. He had chest pain a week ago at an outside hospital had one stent placed. Said did well after that. Yesterday started having a little bit of intermittent chest pain again today. Went to the urgent care at the [place]. They did a workup he had an elevated troponin so they sent him here. On arrival in through the records he has a paced rhythm. Troponin was 2.3 this is most likely due to his stent placement and his chronic renal disease. He is not any pain right now. He did have aspirin there. Med list reviewed, nurse's notes reviewed, allergies reviewed, [facility] reviewed. Pain Scale: 0 - Related Data Home Medications Medication Instructions Recorded Confirmed Amlodipine Besylate 10 mg PO DAILY 03/24/17 04/08/17 Aspirin Enteric Coated [Aspirin EC] 81 mg PO DAILY 03/24/17 04/08/17 Dorzolamide/Timolol [Cosopt] 1 drop BOTH EYES BID 03/24/17 04/08/17 Furosemide [Lasix] 60 mg PO DAILY 03/24/17 04/08/17 Insulin Glargine,Hum.rec.anlog 36 unit SQ QAM 03/24/17 04/08/17 [Lantus Solostar] Ketorolac OPTH Soln [Acular] 1 drop LEFT EYE BID 03/24/17 04/13/17 Metoprolol [Lopressor] 25 mg PO BID 03/24/17 04/08/17 Potassium Chloride [Klor-Con 10] 10 meq PO DAILY 03/24/17 04/08/17 Nitroglycerin [Nitrostat] 0.4 mg SL Q5M PRN 04/08/17 04/08/17 Previous Rx's Medication Instructions Recorded Folic Acid 1 mg PO DAILY #30 tablet 04/14/17 Allergies Allergy/AdvReac Type Severity Reaction Status Date / Time fluvastatin Allergy Difficulty Verified 03/24/17 19:24 Breathing gemfibrozil Allergy Difficulty Verified 03/24/17 19:24 Breathing lovastatin Allergy Difficulty Verified 03/24/17 19:24 Breathing Penicillins [PCN] Allergy Difficulty Verified 03/24/17 19:23 Breathing simvastatin Allergy Difficulty Verified 03/24/17 19:24 Breathing Review of Systems: Intermittent chest pain not present now. All systems ED: reviewed and negative except as stated. Past Medical History - Past Medical History Medical history: Reports: diabetes, hypertension, kidney stones, myocardial infarction Surgical history: Reports: other (Amputation of toes on right side) Psychiatric history: Reports: no psych history - Social History Smoking Status: Never smoker Smokeless Tobacco Status: No Alcohol use: Reports: none Drug use: Reports: none Physical Exam 98.8, pulse 79, respirations 15, BP 145-75 pulse ox on her percent. Gen. he is resting comfortably. No pain. HEENT is normocephalic, PERRL, EOMI, neck is supple, no nodes. Cardiovascular regular rate and rhythm with paced. Lungs are clear to auscultation bilaterally with good aeration Abdomen is soft nonsurgical good bowel sounds no masses. Extremities are present 4 good distal pulses Refill is brisk. No pitting edema no calf tenderness. Dermatologic skin is warm and dry no rash. Jaundice. Neurologic alert person place and time GCS is 15. Up and and laboratory moves all extremities. - General Limitations: no limitations General appearance: alert, in no apparent distress Course Vital Signs Temperature 98.8 F 05/07/18 17:16 Pulse Rate 78 05/07/18 17:16 Respiratory Rate 18 05/07/18 17:16 Blood Pressure 145/75 05/07/18 17:16 O2 Sat by Pulse Oximetry 99 05/07/18 17:16 Temperature 98.8 F 05/07/18 17:19 Pulse Rate 79 05/07/18 17:19 Respiratory Rate 15 05/07/18 17:19 Blood Pressure 145/75 05/07/18 17:19 O2 Sat by Pulse Oximetry 100 05/07/18 17:19 Oxygen Delivery Oxygen Delivery Room Air Medical Decision Making - [facility] Narrative Medical decision making narrative: We will repeat his cardiac workup here is very had aspirin. He has no chest pain at this time period and then plan for admission and following his troponins . 1716 hrs.: Patient has a EKG performed shows an atrial paced rhythm with a rate of 79, QRS is 188 QTC is 449, no old EKG here to compare this to. An E[facility] 2017 and [facility] that had a sinus bradycardia does not appear paced at that time. Chest X-Ray 05/07/18 17:18 IMPRESSION: No acute abnormality detected. D/ / Manuel Elliott MD / Manuel Elliott MD Interpreting Provider: Manuel Elliott MD 1900 hrs.: Patient's labs are essentially unchanged. I do speak to the demurrage agent and then we will speak to hospitalist for admission. 1811 hrs.: I spoke with Dr. San he is on for cardiology, he recommend repeating a troponin in 8 hours to make sure it is not going up. And then admit to the hospitalists and will probably need to see nephrology also. Patient's in agreement with this plan. Waiting on hospitalist call back. 1922 hrs.: Hospitalist as accepted patient for admission. - Lab Data Result diagrams: 05/07/18 17:55 05/07/18 17:55 Lab Results 05/07/18 05/07/18 Range/Units 17:55 17:55 WBC 9.6 (4.3-11.1) K/mcL RBC 3.27 L (4.19-5.50) M/mcL Hgb 9.9 L (12.9-16.9) g/dL Hct 30.7 L (37.5-50.1) % MCV 93.9 (83.0-100.0) fL MCH 30.3 (28.0-33.3) pg MCHC 32.2 (31.6-35.5) g/dL RDW 13.4 (11.5-14.5) % Plt Count 215 (140-400) K/mcL MPV 10.8 (9.4-12.4) fL Immature Gran % 0.4 (0-4) % Seg Neutrophils % 77.4 % Lymphocytes % 7.2 % Monocytes % 14.1 % Eosinophils % 0.4 % Basophils % 0.5 % Neutrophils # 7.4 (1.6-8.9) K/mcL Lymphocytes # 0.7 (0.6-4.6) K/mcL Monocytes # 1.4 H (0.0-1.3) K/mcL Eosinophils # 0.0 (0.0-0.6) K/mcL Basophils # 0.1 (0.0-0.2) K/mcL Immature Plt Fraction 2.5 (1.1-6.1) % Sodium 135 L (136-145) mEq/L Potassium 4.8 (3.5-5.1) mEq/L Chloride 101 (98-107) mEq/L Carbon Dioxide 23 (23-29) mEq/L BUN 92 H (8-23) mg/dL Creatinine 4.98 H (0.70-1.30) mg/dL Est GFR ( Amer) 14 L (> 60) Est GFR (Non-Af Amer) 12 L (> 60) BUN/Creatinine Ratio 18 (6-26) Glucose 239 H (70-105) mg/dL Calculated Osmolality 316 H (280-300) Calcium 9.2 (8.6-10.3) mg/dL Troponin I 2.28 H* (< 0.04) ng/mL
[2018-05-07 18:26] LABS: Basophils # 0.1 K/mcL (0.0-0.2); Basophils % 0.5 %; Eosinophils % 0.4 %; Hematocrit 30.7 % (37.5-50.1); Hemoglobin 9.9 g/dL (12.9-16.9); Immature Granulocytes % 0.4 % (0-4); Immature Platelets 2.5 % (1.1-6.1); Lymphocytes # 0.7 K/mcL (0.6-4.6); Lymphocytes % 7.2 %; Mean Corpuscular HGB Conc 32.2 g/dL (31.6-35.5); Mean Corpuscular Hemoglobin 30.3 pg (28.0-33.3); Mean Corpuscular Volume 93.9 fL (83.0-100.0); Mean Platelet Volume 10.8 fL (9.4-12.4); Monocytes # 1.4 K/mcL (0.0-1.3); Monocytes % 14.1 %; Neutrophils # 7.4 K/mcL (1.6-8.9); Platelet Count 215 K/mcL (140-400); Red Blood Count 3.27 M/mcL (4.19-5.50); Red Cell Distribution Width 13.4 % (11.5-14.5); Segmented Neutrophils % 77.4 %
[2018-05-07 18:56] LABS: Calcium 9.2 mg/dL (8.6-10.3); Potassium 4.8 mEq/L (3.5-5.1)
[2018-05-07 19:01] LABS: Troponin I 2.28 ng/mL (< 0.04)
[2018-05-07] MEDS ORDERED: Nitroglycerin 0.4 MG TAB.SUBL SL PRN (20:38)
[2018-05-07] MEDS ORDERED: Dextrose Gel 15 GM/37.5 ML TUBE PO PRN ×2 (20:51)
--- NOTE | 2018-05-07 21:18 | Internal Med History&Physical ---
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 He says he was discharged on Wednesday and he missed his dialysis sessions scheduled for Wednesday and Wednesday after discharge. Last night he started having chest pain that continued into this morning is exacerbated by mild to moderate exertion and this prompted him to seek medical attention now. He went to the CT initially where he was seen to have a troponin level of 2.3 and then was sent here. On arrival he is clinically and hemodynamically stable stating that his chest pain has resolved; his EKG showed a paced rhythm and a troponin of 2.28. Cardiology was consulted and recommended that he be observed overnight and will be seen in the morning on consultation. At this time he has no complaints. He cannot explain to me why he missed his dialysis sessions. 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) Additional surgical history: toe amputations - Social History Smoking Status: Never smoker Smokeless Tobacco Status: No Alcohol use: none Drug use: none - Family History Mother Hx Family Cancer: Yes (throat [id number]) Internal Medicine - H&P: Meds Amlodipine Besylate 10 mg PO DAILY 03/24/17 [History] Aspirin Enteric Coated [Aspirin EC] 81 mg PO DAILY 03/24/17 [History] Dorzolamide/Timolol [Cosopt] 1 drop BOTH EYES BID 03/24/17 [History] Furosemide [Lasix] 60 mg PO DAILY 03/24/17 [History] Insulin Glargine,Hum.rec.anlog [Lantus Solostar] 36 unit SQ QAM 03/24/17 [History] Ketorolac OPTH Soln [Acular] 1 drop LEFT EYE BID 03/24/17 [History] Metoprolol [Lopressor] 25 mg PO BID 03/24/17 [History] Potassium Chloride [Klor-Con 10] 10 meq PO DAILY 03/24/17 [History] Nitroglycerin [Nitrostat] 0.4 mg SL Q5M PRN 04/08/17 [History] Folic Acid 1 mg PO DAILY #30 tablet 04/14/17 [Rx] Allergy/AdvReac Type Severity Reaction Status Date / Time fluvastatin Allergy Difficulty Verified 03/24/17 19:24 Breathing gemfibrozil Allergy Difficulty Verified 03/24/17 19:24 Breathing lovastatin Allergy Difficulty Verified 03/24/17 19:24 Breathing Penicillins [PCN] Allergy Difficulty Verified 03/24/17 19:23 Breathing simvastatin Allergy Difficulty Verified 03/24/17 19:24 Breathing All Systems PM: A 10-system review of systems was performed and is negative for pertinent findings except as documented above in the HPI. - Constitutional Vitals: Temp Pulse Resp BP Pulse Ox 98.8 F 79 15 145/75 100 05/07/18 17:19 05/07/18 17:19 05/07/18 17:19 05/07/18 17:19 05/07/18 17:19 Exam: Vitals: Reviewed General: Well-developed man lying in bed comfortably in no acute distress. Skin: Warm and supple. HEENT: Moist mucous membranes. No conjunctivae pallor. Neck: No lymphadenopathy. No JVD. No carotid bruits. No palpable thyroid. Chest: Normal thoracic expansion. Normal breath sounds. Clear to auscultation. Heart: Normal S1 & S2; rhythmic. No rubs or murmurs. Abdomen: soft and non-tender to palpation. No peritoneal reaction. Extremities: 2+ lower extremity edema that is soft and pitting but nontender. Palpable thrill on right forearm fistula. Neurological: Awake, alert and oriented to person, place and time. No focal deficits. Psych: Affect appropriate. Internal Med - H&P Results - Labs CBC & Chem 7: 05/07/18 17:55 05/07/18 17:55 Labs: Short CBC 05/07/18 Range/Units 17:55 WBC 9.6 (4.3-11.1) K/mcL Hgb 9.9 L (12.9-16.9) g/dL Hct 30.7 L (37.5-50.1) % Plt Count 215 (140-400) K/mcL Neutrophils # 7.4 (1.6-8.9) K/mcL BMP 05/07/18 17:55 Sodium 135 L Potassium 4.8 Chloride 101 Carbon Dioxide 23 BUN 92 H Creatinine 4.98 H Glucose 239 H Calcium 9.2 Cardiac Enzymes 05/07/18 Range/Units 17:55 Troponin I 2.28 H* (< 0.04) ng/mL - Impressions ITS Impressions Chest X-Ray 05/07/18 17:18 IMPRESSION: No acute abnormality detected. D/ / Manuel Elliott MD / Manuel Elliott MD Interpreting Provider: Manuel Elliott MD - Assessment and plan (1) Unstable angina Current Visit: Yes Status: Acute Assessment and plan: The patient recently underwent stent placement and now comes in with recurring chest pain. Although it is unclear if the current elevation is on the downward trend from what it was a week ago at the outside hospital or secondary to the catheterization, it warrants continued monitoring given his clinical symptoms. It may also be related to his missed dialysis sessions. Will observe on telemetry, trend troponins and obtain and EKG in the morning. NTG prn chest pain with consideration to be given to drips if not-responsive. Cardiology consult requested. Records should be obtained from the outside hospital in the interim. (2) ESRD (end stage renal disease) on dialysis Current Visit: Yes Status: Acute Assessment and plan: Has been non-compliant this past week. Fortunately he has no severe electrolytic abnormalities. Will consult nephrology for placement on the dialysis schedule. Continue diuretics. (3) HTN (hypertension) Current Visit: Yes Status: Chronic Assessment and plan: Resume home oral agents. Qualifiers: Hypertension type: essential hypertension Qualified Code(s): I10 - Essential (primary) hypertension (4) Obesity (BMI 30-39.9) Current Visit: Yes Status: Chronic Assessment and plan: He will benefit from weight loss given his comorbidities. Counseling provided. (5) T2DM (type 2 diabetes mellitus) Current Visit: Yes Status: Chronic Assessment and plan: Will assess recent state of control. Place on insulin sliding scale and basal. Qualifiers: Diabetes mellitus terminologist insulin use: with senior care use Diabetes mellitus complication status: with skin complications Diabetes mellitus complication detail: with other skin complication Qualified Code(s): E11.628 - Type 2 diabetes mellitus with other skin complications; Z79.4 - [facility] (current) use of insulin; Z79.4 - [facility] (current) use of insulin; Z79.4 - director long term care (current) use of insulin; Z79.4 - director long term care (current) use of insulin (6) MARVA (obstructive sleep apnea) Current Visit: Yes Status: Suspected Assessment and plan: Was encouraged to be placed on NIPPV machines while inpatient for sleep di sordered breathing; unknown if he uses at home. CPAP prn (7) Wenckebach second degree AV block Current Visit: Yes Status: Resolved Assessment and plan: S/p PPM and functional. - Time Spent With Patient Total time spent is greater than 50% in coordination of care (as documented) at patient's floor/unit and/or counseling patient: Greater than 35 minutes
[2018-05-07] MEDS: Ketorolac OPTH Soln 5 ML BOTTLE LEFT EYE SCH (23:36)
[2018-05-07] MEDS: Dorzolamide/Timolol OPTH 10 ML BOTTLE BOTH EYES SCH (23:36)
[2018-05-08] MEDS: Insulin LISPRO 300 UNITS/3 ML VIAL SQ SCH ×3 (00:37→13:29)
[2018-05-08 01:25] LABS: Heparin anti-factor XA UFH 0.05 IU/mL (0.30-0.70); INR 1.4; Prothrombin Time 15.4 Seconds (9.4-12.1)
[2018-05-08 01:28] LABS: Activated Partial Thrombo Time 33.7 Seconds (26.0-36.0)
[2018-05-08 01:30] LABS: Chol/HDL Ratio 2.9 (0-4.9)
[2018-05-08 01:44] LABS: Estimated Average Glucose 203 mg/dl; Hemoglobin A1C 8.7 %
[2018-05-08] MEDS ORDERED: *HR* Heparin 5,000 UNIT/ML VIAL SQ SCH (06:00)
[2018-05-08 07:13] LABS: Basophils % 0.5 %; Eosinophils # 0.2 K/mcL (0.0-0.6); Hematocrit 28.7 % (37.5-50.1); Hemoglobin 9.6 g/dL (12.9-16.9); Lymphocytes # 0.7 K/mcL (0.6-4.6); Lymphocytes % 7.9 %; Mean Corpuscular HGB Conc 33.4 g/dL (31.6-35.5); Mean Corpuscular Hemoglobin 30.6 pg (28.0-33.3); Mean Corpuscular Volume 91.4 fL (83.0-100.0); Monocytes % 12.2 %; Neutrophils # 6.4 K/mcL (1.6-8.9); Platelet Count 221 K/mcL (140-400); Red Blood Count 3.14 M/mcL (4.19-5.50); Red Cell Distribution Width 13.5 % (11.5-14.5); Segmented Neutrophils % 76.4 %
[2018-05-08 07:25] LABS: Calcium 8.9 mg/dL (8.6-10.3); Potassium 5.3 mEq/L (3.5-5.1)
[2018-05-08] MEDS ORDERED: Perflutren Lipid Microsphere 1.3 ML in 0.9 % Sodium Chloride 8.7 ML IVP ONE ×2 (08:05→08:30)
[2018-05-08] MEDS ORDERED: Insulin DETEMIR 100 UNIT/ML X5UNITS SQ SCH (09:00)
[2018-05-08] MEDS ORDERED: Aspirin Enteric Coated 81 MG Tablet PO SCH (09:00)
[2018-05-08] MEDS ORDERED: Folic Acid 1 MG TABLET PO SCH (09:00)
[2018-05-08] MEDS ORDERED: amLODIPine 5 MG TABLET PO SCH (09:00)
[2018-05-08] MEDS: Furosemide 40 MG TABLET PO SCH ×2 (10:06→10:09)
[2018-05-08] MEDS: Dorzolamide/Timolol OPTH 10 ML BOTTLE BOTH EYES SCH (10:07)
[2018-05-08] MEDS: Ketorolac OPTH Soln 5 ML BOTTLE LEFT EYE SCH (10:07)
[2018-05-08 11:57] VITALS: BP 120/68
--- NOTE | 2018-05-08 12:07 | Nephrology Consult Note ---
Date of Encounter: 05/08/18 Time of Encounter: 12:00 Assessment and Plan (1) ESRD (end stage renal disease) on dialysis Current Visit: Yes Status: Acute HD MWF. Right forearm fistula. Renal vitamins. Renal dose medications. Renal diet. Additional dialysis and ultrafiltration as needed. No need for dialysis today (2) HTN (hypertension) Current Visit: Yes Status: Chronic Titrated and tapped as a medication needed. Qualifiers: Hypertension type: renovascular hypertension Qualified Code(s): I15.0 - Renovascular hypertension (3) Obesity (BMI 30-39.9) Current Visit: Yes Status: Chronic (4) T2DM (type 2 diabetes mellitus) Current Visit: Yes Status: Chronic Per the primary team. Qualifiers: Diabetes mellitus group home insulin use: with watermelon inspector use Diabetes mellitus complication status: with skin complications Diabetes mellitus complication detail: with other skin complication Qualified Code(s): E11.628 - Type 2 diabetes mellitus with other skin complications; Z79.4 - halfway (current) use of insulin; Z79.4 - long term care administrator (current) use of insulin; Z79.4 - halfway (current) use of insulin; Z79.4 - halfway (current) use of insulin (5) CAD (coronary artery disease) Current Visit: Yes Status: Acute Qualifiers: Qualified Code(s): I25.10 - Atherosclerotic heart disease of [place] coronary artery without angina pectoris History of Present Illness - Reason for Consult Consult date: 05/08/18 end stage renal disease - Chief Complaint esrd - History of Present Illness Mr. Chery is a 67 yo man with a history of ESRD with dialysis MWF. Patient recently suffered a myocardial infarction and underwent percutaneous tra nsluminal angioplasty with stent placement. Per the patient he was discharge the Wednesday prior to admission and received dialysis on that day. He states he did not go to any further dialysis treatment as "it was hard to do". He later states that he thinks it might have been a good idea to go to dialysis. He presented with dyspnea and chest discomfort. At the time my evaluation he states his dyspnea is better and his chest pain is resolved. He states he has a good appetite and has no other complaints. Past Med Surg Social Fam HX - Past Medical History Medical history: diabetes, hypertension, kidney stones, myocardial infarction Additional medical history: Glaucoma, chronic constipation Psychiatric history: no psych history - Past Surgical History Surgical History: other Additional surgical history: toe amputations - Social History Smoking Status: Never smoker Smokeless Tobacco Status: No Alcohol use: none Drug use: none - Family History Mother Name: Kristina Family Member Ethnicity: Non- Living Status: Age at : 56 Cause of : Ca Hx Family Cardiac Disorders: Yes Hx Family Respiratory Disorders: Yes Hx Family Cancer: Yes Medications and Allergies Amlodipine Besylate 10 mg PO DAILY 03/24/17 [History] Aspirin Enteric Coated [Aspirin EC] 81 mg PO DAILY 03/24/17 [History] Dorzolamide/Timolol [Cosopt] 1 drop BOTH EYES BID 03/24/17 [History] Furosemide [Lasix] 60 mg PO DAILY 03/24/17 [History] Insulin Glargine,Hum.rec.anlog [Lantus Solostar] 36 unit SQ QAM 03/24/17 [History] Ketorolac OPTH Soln [Acular] 1 drop LEFT EYE BID 03/24/17 [History] Metoprolol [Lopressor] 25 mg PO BID 03/24/17 [History] Potassium Chloride [Klor-Con 10] 10 meq PO DAILY 03/24/17 [History] Nitroglycerin [Nitrostat] 0.4 mg SL Q5M PRN 04/08/17 [History] Folic Acid 1 mg PO DAILY #30 tablet 04/14/17 [Rx] Allergy/AdvReac Type Severity Reaction Status Date / Time fluvastatin Allergy Difficulty Verified 03/24/17 19:24 Breathing gemfibrozil Allergy Difficulty Verified 03/24/17 19:24 Breathing lovastatin Allergy Difficulty Verified 03/24/17 19:24 Breathing Penicillins [PCN] Allergy Difficulty Verified 03/24/17 19:23 Breathing simvastatin Allergy Difficulty Verified 03/24/17 19:24 Breathing Review of Systems All Systems: reviewed and no additional remarkable complaints except as stated (As per history of present illness) Exam - Vital Signs Vital signs: Initial Vital Signs Temp Pulse Resp BP Pulse Ox 98.8 F 78 18 145/75 99 05/07/18 17:16 05/07/18 17:16 05/07/18 17:16 05/07/18 17:16 05/07/18 17:16 Vital Signs - Last 8 Hours Temp Pulse Resp BP Pulse Ox 05/08/18 11:55 97.5 F L 70 18 120/68 96 05/08/18 08:11 99.2 F 78 18 134/85 95 Intake and Output 05/07/18 05/08/18 05/08/18 23:59 07:59 15:59 Intake Total 400 / 400 Balance 400 / 400 Intake: Oral 400 / 400 Other: Weight 104.78 kg Blood Glucose* 187 201 - General Appearance General appearance: well-developed, well-nourished EENT: ATNC Neck: supple Respiratory: clear Cardiology: no edema, regular rate, regular rhythm - Dialysis Access Dialysis Vascular Access: Arteriovenous Fistula (Right forearm fistula with a good thrill and bruit.) thrill: Yes bruit: Yes Gastrointestinal: no tenderness, obese Integumentary: warm and dry Neurologic: alert and oriented x3 Musculoskeletal: no cyanosis Psychiatric: mood/affect appropriate Results - Lab Results 05/08/18 06:28 05/08/18 06:28 Most recent lab results Calcium 8.9 mg/dL (8.6-10.3) 05/08/18 06:28 Consult Discharge Plan - Plan [facility]errals: [facility] [Primary Care Provider] -
--- NOTE | 2018-05-08 12:46 | Discharge Summary ---
- NOTES TO OUTPATIENT PROVIDER Notes to Outpatient Provider: Patient had mild chest discomfort that has resolved. Cardiology saw and felt no indication for intervention and they signed out. I will send patient home with some nitro for chest pain. Also, he is noncompliant with attending dialysis sessions. I impressed upon him the need to attend every dialysis session as scheduled. He will have his regular scheduled dialysis tomorrow. Orders not resulted at time of discharge: Pending orders 05/07/18 17:17 EKG [ECG 12 lead ECG] [ECG] Stat Date of Encounter: 05/08/18 Time of Encounter: 12:44 - Discharge Diagnosis (1) Unstable angina Priority: Primary Status: Resolved (2) T2DM (type 2 diabetes mellitus) Priority: Secondary Status: Chronic Qualifiers: Diabetes mellitus [facility] insulin use: with oysterman use Diabetes mellitus complication status: with skin complications Diabetes mellitus complication detail: with other skin complication Qualified Code(s): E11.628 - Type 2 diabetes mellitus with other skin complications; Z79.4 - intermediate school teacher (current) use of insulin; Z79.4 - shelter (current) use of insulin; Z79.4 - intermediate school teacher (current) use of insulin; Z79.4 - intermediate school teacher (current) use of insulin (3) HTN (hypertension) Priority: Secondary Status: Chronic Qualifiers: Hypertension type: renovascular hypertension Qualified Code(s): I15.0 - Renovascular hypertension (4) Obesity (BMI 30-39.9) Priority: Secondary Status: Chronic (5) MARVA (obstructive sleep apnea) Priority: Secondary Status: Suspected (6) ESRD (end stage renal disease) on dialysis Priority: Secondary Status: Chronic Hospital course: Mr. Chery is a 67 year old male with history of coronary artery disease with recent [place], end-stage renal disease who presented with chest pain. He states the pain occurred at rest and was not significantly worse with exertion. He states he did not try to take nitroglycerin home. He has been chest pain-free since admission. Patient was noted to have elevated but down trending troponins. In the setting of ESRD and WA one week ago, his troponins are likely still elevated from his event a week ago. Cardiology saw and evaluated the patient who did not feel that he needed any intervention and they have signed off. Patient did state that he missed his last Wednesday and Wednesday dialysis sessions. He was seen by nephrology who felt he did not need dialysis until his regular scheduled session tomorrow. Patient will be discharged home in stable condition. He will be given a prescription for nitroglycerin for chest pain and he has been instructed to use up to 3 doses every 5 minutes and have his pain persist he is to seek medical attention. I also strongly impressed upon the patient that he needs to attend every dialysis session as instructed by his escrow clerk. Discharge discussed with: patient, cruise consultant - Time Spent with Patient Total time spent providing and/or coordinating discharge services: Less than 30 minutes - Discharge Medications Prescriptions: Nitroglycerin [Nitrostat] 0.4 mg SL Q5M PRN #30 tab.subl PRN Reason: Chest Pain Home Medications: Amlodipine Besylate 10 mg PO DAILY 03/24/17 [History] Aspirin Enteric Coated [Aspirin EC] 81 mg PO DAILY 03/24/17 [History] Dorzolamide/Timolol [Cosopt] 1 drop BOTH EYES BID 03/24/17 [History] Furosemide [Lasix] 60 mg PO DAILY 03/24/17 [History] Insulin Glargine,Hum.rec.anlog [Lantus Solostar] 36 unit SQ QAM 03/24/17 [History] Ketorolac OPTH Soln [Acular] 1 drop LEFT EYE BID 03/24/17 [History] Metoprolol [Lopressor] 25 mg PO BID 03/24/17 [History] Folic Acid 1 mg PO DAILY #30 tablet 04/14/17 [Rx] Nitroglycerin [Nitrostat] 0.4 mg SL Q5M PRN #30 tab.subl 05/08/18 [Rx] Allergies/Adverse Reactions: Allergy/AdvReac Type Severity Reaction Status Date / Time fluvastatin Allergy Difficulty Verified 03/24/17 19:24 Breathing gemfibrozil Allergy Difficulty Verified 03/24/17 19:24 Breathing lovastatin Allergy Difficulty Verified 03/24/17 19:24 Breathing Penicillins [PCN] Allergy Difficulty Verified 03/24/17 19:23 Breathing simvastatin Allergy Difficulty Verified 03/24/17 19:24 Breathing Date of admission: 05/07/18 20:31 [facility] care physician: [facility] Consults: 05/07/18 20:36 Consult to Cardiology [CONS] Routine Comment: Consulting Provider: Cardiology Marybeth Reason for Consult: 67 year old M w/ ESRD on HD who was stented 1 week ago at [facility] presenting with chest pain recurrence and seen to have a troponin of 2.3. EKG showing paced rhythm. Unknown [place] xtics from admission a week ago prompting the stent. Has also missed 2 dialysis sessions. Call Completed: Yes Consult to Nephrology [CONS] Routine Consulting Provider: Kidney Marybeth/LEI/ROSALES/MAKSIM Reason for Consult: 67 y.o M w/ ESRD who has missed 2 dialysis sessions. Admitted for chest pain. Call Completed: No Discharging clinician: Mane Bucio Anticipated date of discharge: 05/08/18 - Constitutional Vitals: Temp Pulse Resp BP Pulse Ox 97.5 F L 70 18 120/68 96 05/08/18 11:55 05/08/18 11:55 05/08/18 11:55 05/08/18 11:55 05/08/18 11:55 General appearance: Present: A&O X 3, pleasant, no acute distress Exam: . - ENT ENT exam: Present: mucous membranes moist - Neck Neck exam general surgery: Absent: tenderness - Respiratory Respiratory exam: Present: CTAB. Absent: rales, rhonchi, wheezes - Cardiovascular Cardiovascular exam: Present: RRR. Absent: gallop, rubs, systolic murmur - GI/Abdominal GI/Abdominal exam: Present: normal bowel sounds, soft. Absent: distended, tenderness - Extremities Exam Extremities exam: Present: pedal edema (trace), warm. Absent: tenderness Additional comments: Fistula in the right upper extremity with positive thrill and bruit. - Neurological Exam Neurological exam: Present: alert, CN II-XII intact, oriented X3, no focal deficits - Skin Skin exam: Present: dry, intact, warm - Patient Status Disposition: Home, Self-Care Condition: Fair Functional capacity at discharge: independent ambulation Overall status at discharge: patient is progressing back to baseline - Discharge Instructions Follow Up With: [facility] [Primary Care Provider] - (1 week) Additional Instructions: Please resume your home medications. Please sure to take your aspirin and Plavix every day Please hold your potassium pill until instructed to restart by your escrow clerk. Please be sure to attend your her regularly scheduled Wednesday, Wednesday, Wednesday dialysis sessions. [facility]. - Diet and Activity Activity: increase activity as tolerated Diet: advance to your usual diet (renal diet)
--- NOTE | 2018-05-09 14:59 | Electrocardiograph Report ---
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
== END 2018-05-08 14:29 | disposition home or self-care (01) ==
LOC: EMEROOARM 17:08 → 2ANU 17:08 → SUATTDRO 20:31 → 2ANU 21:29
PROVIDERS: ADMIT Internal Medicine; ATTEND Internal Medicine